=== PATIENT | female | born 1935 | race Caucasian/White ===

== ENCOUNTER 2016-07-29 16:55 | Emergency (ER) | payer MEDICARE ==
[2016-07-29] MEDS ORDERED: SODIUM CHLORIDE 0.9% 500 ML IV STA ×3 (16:57→19:31)
[2016-07-29] MEDS ORDERED: LORazepam 2 MG/ML SYRINGE IV STA ×2 (16:57→19:07)
[2016-07-29] MEDS ORDERED: SODIUM CHLORIDE 0.9% 1,000 ML IV STA (16:57)
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
[2016-07-29 17:23] VITALS: RESP 18
[2016-07-29 17:33] LABS: Basophils % (A) 0 %; CH 32.5; CHCM 36.8; Eosinophils # (A) 0.1 k/uL (0-0.7); Eosinophils % (A) 1 %; HCT 41.6 % (34.0-46.0); HDW 3.04; HGB 14.9 gm/dL (11.4-16.0); Luc # (Auto) 0.13; Luc % (Auto) 1; Lymphocytes # (A) 2.1 k/uL (1.0-4.8); Lymphocytes % (A) 24 %; MCH 31.7 pg (25.0-35.0); MCHC 35.7 g/dL (31.0-37.0); MCV 88.7 fL (80.0-100.0); Mean Platelet Volume 6.9; Monocytes # (A) 0.4 k/uL (0-1.0); Monocytes % (A) 4 %; Neutrophils # (A) 6.2 k/uL (1.3-7.7); Neutrophils % (A) 70 %; RBC 4.68 m/uL (3.80-5.40); RDW 13.3 % (11.5-15.5); WBC 8.9 k/uL (3.8-10.6); WBC (Perox) 8.75
[2016-07-29 17:48] LABS: INR 1.1 (<1.1); Partial Thromboplastin Time 27.5 sec (22.0-30.0); Prothrombin Time 10.9 sec (9.0-12.0)
[2016-07-29 17:49] LABS: ALT 53 U/L (9-52); AST 59 U/L (14-36); Alkaline Phosphatase 106 U/L (38-126); Anion Gap 13 mmol/L; Blood Urea Nitrogen 16 mg/dL (7-17); Calcium 9.5 mg/dL (8.4-10.2); Carbon Dioxide 23 mmol/L (22-30); Chloride 101 mmol/L (98-107); Glucose 188 mg/dL (74-99); Magnesium 1.8 mg/dL (1.6-2.3); Non-African American GFR(MDRD) >60 (>60 ml/min/1.73 sqM); Potassium 3.1 mmol/L (3.5-5.1); Sodium 137 mmol/L (137-145); Total Bilirubin 0.7 mg/dL (0.2-1.3); Total Protein 7.7 g/dL (6.3-8.2)
--- NOTE | 2016-07-29 17:50 | XR ---
EXAMINATION TYPE: XR chest 2V DATE OF EXAM: 07/29/2016 COMPARISON: Prior chest x-ray February 2013 HISTORY: Difficulty breathing TECHNIQUE: Frontal and lateral views of the chest are obtained. FINDINGS: There is no focal air space opacity, pleural effusion, or pneumothorax seen. The cardiac silhouette size is within normal limits. Prominent lung volume may be indicative of COPD. There are overlying cardiac leads and the patient is rotated. Apical pleural thickening is present. The osseou s structures are intact. IMPRESSION: No acute cardiopulmonary process.
[2016-07-29 17:56] LABS: Creatine Kinase 850 U/L (30-135)
[2016-07-29 18:10] LABS: Troponin I <0.012 ng/mL (0.000-0.034)
[2016-07-29 18:14] LABS: Creatine Kinase MB 7.3 ng/mL (0.0-2.4)
[2016-07-29] MEDS ORDERED: POTASSIUM CHLORIDE ER 20 MEQ TAB.ER PO STA (19:03)
[2016-07-29] MEDS ORDERED: MAGNESIUM SULFATE-D5W PMX 1 GM in DEXTROSE/WATER 1 100ML.BAG IVPB ONE (19:15)
[2016-07-29] MEDS ORDERED: LOSARTAN 50 MG TAB PO STA (20:48)
[2016-07-29 21:17] VITALS: BP 181/93; PULSE 77; TEMP 98
== END 2016-07-29 21:17 | disposition home or self-care (01) ==
LOC: EC 16:55
DX: E86.0 Dehydration (principal); E87.6 Hypokalemia; F41.9 Anxiety disorder, unspecified; R06.00 Dyspnea, unspecified; F31.9 Bipolar disorder, unspecified; I10 Essential (primary) hypertension; E07.9 Disorder of thyroid, unspecified; Z79.82 Long term (current) use of aspirin; Z79.899 Other long term (current) drug therapy; Z88.5 Allergy status to narcotic agent; Z85.828 Personal history of other malignant neoplasm of skin
CPT/HCPCS: 36415; 93005; 85379; 83880; 80053; 82550; 82553; 83735; 84484; 85025; 85610; 85730; 71020; 99284; 96365; 96375; 96376; 96361 ×3; J2060; J3475

== ENCOUNTER 2017-05-08 16:26 | Inpatient (IN) | payer MEDICARE ==
[2017-05-08] MEDS ORDERED: ASPIRIN 81 MG PO STA (16:58)
[2017-05-08] MEDS ORDERED: NITROGLYCERIN OINT 1 INCH/GM PACKET TOPICAL STA (16:58)
[2017-05-08 17:09] LABS: Basophils % (A) 1 %; Eosinophils # (A) 0.3 k/uL (0-0.7); Eosinophils % (A) 4 %; HCT 40.3 % (34.0-46.0); HGB 14.1 gm/dL (11.4-16.0); Lymphocytes # (A) 2.4 k/uL (1.0-4.8); Lymphocytes % (A) 33 %; MCH 31.5 pg (25.0-35.0); MCHC 35.1 g/dL (31.0-37.0); MCV 89.9 fL (80.0-100.0); Mean Platelet Volume 7.2; Monocytes # (A) 0.4 k/uL (0-1.0); Monocytes % (A) 6 %; Neutrophils % (A) 56 %; Platelet Count 228 k/uL (150-450); RBC 4.48 m/uL (3.80-5.40); RDW 13.5 % (11.5-15.5); WBC 7.1 k/uL (3.8-10.6)
[2017-05-08 17:24] LABS: D-Dimer 1.37 mg/L FEU (<0.60); INR 1.1 (<1.2); Partial Thromboplastin Time 24.9 sec (22.0-30.0); Prothrombin Time 10.3 sec (9.0-12.0)
[2017-05-08 17:34] LABS: Creatine Kinase 39 U/L (30-135)
[2017-05-08 17:36] LABS: ALT 53 U/L (9-52); AST 36 U/L (14-36); Alkaline Phosphatase 88 U/L (38-126); Anion Gap 11 mmol/L; Blood Urea Nitrogen 25 mg/dL (7-17); Calcium 9.7 mg/dL (8.4-10.2); Carbon Dioxide 28 mmol/L (22-30); Chloride 101 mmol/L (98-107); Glucose 95 mg/dL (74-99); Potassium 3.9 mmol/L (3.5-5.1); Sodium 140 mmol/L (137-145); Total Bilirubin 0.4 mg/dL (0.2-1.3)
[2017-05-08 17:45] LABS: Creatine Kinase MB <0.2 ng/mL (0.0-2.4); Troponin I <0.012 ng/mL (0.000-0.034)
--- NOTE | 2017-05-08 17:46 | XR ---
EXAMINATION: XR chest 2V DATE AND TIME: 05/08/2017 5:20 PM ORDERING PROVIDER: Noah Antony DO CLINICAL INDICATION: Chest Pain with 3days of dyspnea TECHNIQUE: PA and lateral COMPARISON: 01/29/2017 DESCRIPTION: The lungs are clear. The pleural spaces are negative. The cardiac silhouette is not enlarged. The skeletal structures are intact without focal findings. The soft tissues are unremarkable. IMPRESSION: NO ACUTE PROCESS.
[2017-05-08] MEDS ORDERED: RX INFO: IV CONTRAST WAS GIVEN 1 EACH MISC MISCELLANE PRN (19:01)
[2017-05-08] MEDS ORDERED: hydrALAZINE HCL 20 MG/ML 1 ML VIAL IVP STA (19:05)
--- NOTE | 2017-05-08 19:05 | ED ---
Chest Pain HPI - General Chief Complaint: Chest Pain Stated Complaint: Chest Pain Time Seen by Provider: 05/08/17 16:51 Source: patient, family Mode of arrival: wheelchair Limitations: no limitations - History of Present Illness Initial Comments: This 81-year-old white female presents with a complaint of some chest pain and shortness of breath. She states that this is been intermittent over the past 5 days. She states that it is a pressure in the midsternal region of her chest without any radiation. She denies any previous similar symptoms. She apparently saw her doctor today and they did an EKG which showed some abnormalities and she was sent to the ER for further evaluation. She denies any leg pain or swelling. She does relate a pleuritic component to the chest pain. She denies any history of DVT or PE. No fevers or chills or cough. No other complaints or modifying factors. - Related Data Home Medications Medication Instructions Recorded Confirmed Aspirin EC [Ecotrin Low Dose] 81 mg PO HS 07/29/16 05/08/17 Atorvastatin Calcium [Lipitor] 40 mg PO HS 07/29/16 05/08/17 Levothyroxine Sodium [Synthroid] 50 mcg PO DAILY 07/29/16 05/08/17 Multivitamins, Thera [Multivitamin 1 tab PO HS 07/29/16 05/08/17 (formulary)] lamoTRIgine [LaMICtal] 100 mg PO HS 07/29/16 05/08/17 Escitalopram [Lexapro] 20 mg PO DAILY 01/05/17 05/08/17 Hydrochlorothiazide [Hydrodiuril] 25 mg PO DAILY 01/05/17 05/08/17 LORazepam [Ativan] 0.5 mg PO BID 01/05/17 05/08/17 Cholecalciferol [Vitamin D3] 1,000 unit PO HS 05/08/17 05/08/17 Fish Oil/Dha/Epa [Fish Oil 1,200 1 cap PO DAILY 05/08/17 05/08/17 mg Fish Oil] Potassium Chloride ER [K-Dur 20] 20 meq PO HS 05/08/17 05/08/17 Previous Rx's Medication Instructions Recorded Metoprolol Succinate (ER) [Toprol 50 mg PO DAILY #30 tab 07/29/16 XL] Allergies Allergy/AdvReac Type Severity Reaction Status Date / Time codeine AdvReac Nausea & Verified 05/08/17 17:05 Vomiting Review of Systems ROS Statement: Those systems with pertinent positive or pertinent negative responses have been documented in the HPI. ROS Other: All systems not noted in ROS Statement are negative. 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 History of Any Multi-Drug Resistant Organisms: None Reported Past Surgical History: Appendectomy, Bladder Surgery, Cholecystectomy, Hysterectomy, Joint Replacement, Orthopedic Surgery Additional Past Surgical History / Comment(s): bilateral hip replacements, cataract removal bilaterally, bladder suspension surgery with mesh, pelvic fx surgically repaired. Additional Past Anesthesia/Blood Transfusion Reaction / Comment(s): Pt states she had N/V following spinal anesthesia because her head was lifted up too soon. Pt has not recieved a blood transfusion. Past Psychological History: Anxiety, Bipolar Smoking Status: Never smoker Past Alcohol Use History: None Reported Past Drug Use History: None Reported - Past Family History Father Family Medical History: Myocardial Infarction ([place]) Mother Family Medical History: CVA/TIA, Hypertension Additional Family Medical History / Comment(s): Mother of a CVA General Exam - General Exam Comments Initial Comments: GENERAL: The patient is well nourished and well hydrated. VITAL SIGNS: Heart rate, blood pressure, respiratory rate reviewed as recorded in nurse's notes. EYES: Pupils are round and reactive. Extraocular movements are intact. No conjunctival / lid redness or swelling. ENT: No external evidence of injury, swelling, or ecchymosis. Airway is patent. Throat is clear. NECK: Nontender. No swelling or evidence of injury. No subcutaneous emphysema. Trachea is midline. No thyroid mass. HEART: Regular rate and rhythm. Good peripheral pulses. LUNGS/CHEST: Breath sounds clear and equal bilaterally. No rales, rhonchi, or wheezes. No ecchymosis, subcutaneous emphysema, or tenderness. ABDOMEN: Abdomen soft without tenderness. No palpable masses or organomegaly. No peritoneal signs. No abdominal wall swelling or ecchymosis. EXTREMITIES: No extremity tenderness. Normal muscle tone and function. No thoracolumbar tenderness. NEUROLOGIC: Sensation is grossly intact. Cranial nerve exam reveals face is symmetrical, tongue is midline, speech is clear. SKIN: No abrasions or ecchymosis is noted. No induration or masses noted. PSYCHIATRIC: Alert and oriented. Appropriate behavior and judgment. Limitations: no limitations Course Vital Signs 05/08/17 05/08/17 05/08/17 16:30 17:36 17:38 Temperature 97.8 F Pulse Rate 56 L 54 L Pulse Rate [ 65 Supine Apical] Respiratory 20 18 Rate Blood Pressure 156/73 159/78 O2 Sat by Pulse 99 99 Oximetry 05/08/17 05/08/17 18:14 19:06 Temperature Pulse Rate 55 L 55 L Pulse Rate [ Supine Apical] Respiratory 19 18 Rate Blood Pressure 191/84 130/71 O2 Sat by Pulse 98 98 Oximetry Chest Pain MDM - [facility] The patient was seen and examined. All diagnostics were reviewed. The EKG shows a sinus bradycardia at a rate of 56. There is no ST elevation but there is some T-wave abnormalities in the lateral leads. The MA intervals 182, QRS duration is 84, and the QTC intervals 426. He sees an aspirin as well as Nitropaste. The laboratory came back showing an elevation of the d-dimer but the other labs are all essentially within normal limits. The chest x-ray does not show any abnormalities. A CT angiogram of the chest is ordered. The case is discussed with the radiologist and they do note a small right lower lobe pulmonary embolism. The patient is started on heparin. It is felt as though she would require admission to the hospital for further treatment of this condition. The case is discussed with Dr. Musa and he is agreeable with admission. He would like Dr. Mullins from pulmonology to consult. The patient is agreeable to admission as well. Disposition Clinical Impression: Hypertension, Elevated d-dimer, Chest pain, SOB (shortness of breath), Bradycardia, Pulmonary embolism Disposition: ADMITTED IP TO THIS [facility] Condition: Fair Referrals: Lydia Schwartz MD [Primary Care Provider] - 1-2 days Time of Disposition: 19:05 Decision Date: 05/08/17 Decision Time: 19:05
[2017-05-08] MEDS ORDERED: HEPARIN SODIUM,PORCINE 5,000 UNIT/ML 1 ML VIAL IV PRN (20:45)
--- NOTE | 2017-05-08 20:49 | CT ---
EXAMINATION TYPE: CT angio chest with contrast, with 3-D reconstruction renderings. DATE OF EXAM: 05/08/2017 7:48 PM COMPARISON: 06/26/2011 HISTORY: Chest pain CT DLP: 299 mGycm Automated exposure control for dose reduction was used. CONTRAST: CTA scan of the thorax is performed with IV Contrast, patient injected with 65 mL of Omnipa que 350, pulmonary embolism protocol. Multiple 3-D reconstruction renderings were obtained.. FINDINGS: LUNGS: The lungs are grossly clear and well expanded. Apical pleural-parenchymal changes are noted bi laterally. There is no pleural effusion or pneumothorax seen. The tracheobronchial tree is patent. MEDIASTINUM: There is satisfactory enhancement of the pulmonary artery and its branches, with an intr aluminal filling defect involving the right lower lobe medial basal segment, consistent with acute pu lmonary embolism. The remainder of the pulmonary arterial tree is well-opacified and is negative. There are no greater than 1 cm hilar or mediastinal lymph nodes. No cardiomegaly. Chronic calcificati ons noted. No pericardial effusion is seen. No acute thoracic aorta findings. OTHER: No additional significant abnormality is seen. IMPRESSION: 1. POSITIVE FOR SEGMENTAL BRANCH PULMONARY EMBOLISM INVOLVING RIGHT LOWER LOBE MEDIAL BASAL BRANCH. Results communicated with the ordering physician at 8:42 PM, in order to ensure intact communications . 2. CORONARY CALCIFICATIONS NOTED.
[2017-05-08] MEDS: HEPARIN SODIUM,PORCINE 5,000 UNIT/ML 1 ML VIAL IV ONE ×2 (21:28→21:51)
[2017-05-08] MEDS ORDERED: HEPARIN SODIUM,PORCINE 5,000 UNIT/ML 1 ML VIAL IV ONE (21:45)
[2017-05-08] MEDS: HEPARIN SOD,PORK IN 0.45% NACL 25,000 UNIT in 0.45% NACL 1 500ML.BAG IV SCH (21:53)
[2017-05-08] MEDS ORDERED: ONDANSETRON 4 MG/2 ML VIAL IVP PRN (22:40)
[2017-05-08] MEDS ORDERED: NALOXONE 0.4 MG/ML 1 ML VIAL IV PRN (22:40)
[2017-05-08] MEDS ORDERED: ACETAMINOPHEN TAB 325 MG TAB PO PRN (22:40)
[2017-05-08] MEDS ORDERED: POTASSIUM CHLORIDE ER 20 MEQ TAB.ER PO STA (23:55)
[2017-05-08] MEDS ORDERED: ATORVASTATIN 40 MG TAB PO STA (23:58)
[2017-05-08] MEDS ORDERED: lamoTRIgine 100 MG TAB PO STA (23:58)
[2017-05-09 02:57] LABS: Basophils % (A) 1 %; Eosinophils # (A) 0.3 k/uL (0-0.7); Eosinophils % (A) 3 %; HCT 35.7 % (34.0-46.0); HGB 12.1 gm/dL (11.4-16.0); Lymphocytes # (A) 3.2 k/uL (1.0-4.8); Lymphocytes % (A) 39 %; MCH 30.8 pg (25.0-35.0); MCV 90.6 fL (80.0-100.0); Mean Platelet Volume 7.4; Monocytes # (A) 0.4 k/uL (0-1.0); Monocytes % (A) 5 %; Neutrophils # (A) 4.2 k/uL (1.3-7.7); Neutrophils % (A) 51 %; Platelet Count 188 k/uL (150-450); RBC 3.94 m/uL (3.80-5.40); RDW 13.7 % (11.5-15.5); WBC 8.3 k/uL (3.8-10.6)
[2017-05-09 03:21] LABS: INR 1.2 (<1.2); Prothrombin Time 11.2 sec (9.0-12.0)
[2017-05-09 03:27] LABS: Partial Thromboplastin Time >200.0 sec (22.0-30.0)
[2017-05-09] MEDS: HYDROCHLOROTHIAZIDE 25 MG TAB PO SCH (08:35)
[2017-05-09] MEDS: METOPROLOL SUCCINATE (ER) 50 MG TAB.ER.24H PO SCH (08:35)
[2017-05-09] MEDS: ESCITALOPRAM 20 MG TAB PO SCH (08:35)
[2017-05-09] MEDS: LEVOTHYROXINE 50 MCG TAB PO SCH (08:36)
[2017-05-09] MEDS ORDERED: LORazepam 0.5 MG TAB PO SCH (09:00)
[2017-05-09] MEDS ORDERED: NON-FORMULARY DRUG (Fish Oil/Dha/Epa [Fish Oil 1,200 Mg Fish Oil] 1 CAP) PO SCH (09:00)
[2017-05-09] MEDS ORDERED: PANTOPRAZOLE 40 MG/10 ML VIAL IV SCH (09:00)
[2017-05-09] MEDS: LORazepam 1 MG TAB PO SCH ×2 (10:29→20:33)
--- NOTE | 2017-05-09 11:56 | P.HPIM ---
History of Present Illness H&P Date: 05/09/17 Chief Complaint: Shortness of breath Denise Chopra is an 81-year-old female patient of Dr. Schwartz who presented to [facility] emergency room with a chief complaint of shortness of breath, patient is stating that her shortness of breath started 3-4 weeks ago and has been increasing, she was evaluated in the emergency room, d-dimer was elevated at 1.37, computed tomography scan angiogram of the chest was positive for segmental branch pulmonary embolism involving the right lower lobe medial basal branch, she was started on IV heparin in the emergency room and was admitted to telemetry floor for further evaluation and treatment. Patient denies any recent travel, denies any recent hip or knee surgery, denies any recent cast or brace to the lower extremities, however she states that she has been staying in bed for prolonged times due to depression. Patient states that she never smoked. 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 History of Any Multi-Drug Resistant Organisms: None Reported Past Surgical History: Appendectomy, Bladder Surgery, Cholecystectomy, Hysterectomy, Joint Replacement, Orthopedic Surgery Additional Past Surgical History / Comment(s): bilateral hip replacements, cataract removal bilaterally with lens implants, bladder suspension surgery with mesh-states she is having difficulty with mesh, pelvic fx surgically repaired. Additional Past Anesthesia/Blood Transfusion Reaction / Comment(s): Pt states she had N/V following spinal anesthesia because her head was lifted up too soon. Pt has not recieved a blood transfusion. Smoking Status: Never smoker - Past Family History Father Family Medical History: Myocardial Infarction ([place]) Mother Family Medical History: CVA/TIA, Hypertension Additional Family Medical History / Comment(s): Mother of a CVA Medications and Allergies Home Medications Medication Instructions Recorded Confirmed Type Aspirin EC [Ecotrin Low Dose] 81 mg PO HS 07/29/16 05/08/17 History Atorvastatin Calcium [Lipitor] 40 mg PO HS 07/29/16 05/08/17 History Levothyroxine Sodium [Synthroid] 50 mcg PO DAILY 07/29/16 05/08/17 History Metoprolol Succinate (ER) [Toprol 50 mg PO DAILY #30 tab 07/29/16 05/08/17 Rx XL] Multivitamins, Thera [Multivitamin 1 tab PO HS 07/29/16 05/08/17 History (formulary)] lamoTRIgine [LaMICtal] 100 mg PO HS 07/29/16 05/08/17 History Escitalopram [Lexapro] 20 mg PO DAILY 01/05/17 05/08/17 History Hydrochlorothiazide [Hydrodiuril] 25 mg PO DAILY 01/05/17 05/08/17 History LORazepam [Ativan] 0.5 mg PO BID 01/05/17 05/08/17 History Cholecalciferol [Vitamin D3] 1,000 unit PO HS 05/08/17 05/08/17 History Fish Oil/Dha/Epa [Fish Oil 1,200 1 cap PO DAILY 05/08/17 05/08/17 History mg Fish Oil] Potassium Chloride ER [K-Dur 20] 20 meq PO HS 05/08/17 05/08/17 History Allergies Allergy/AdvReac Type Severity Reaction Status Date / Time codeine AdvReac Nausea & Verified 05/08/17 17:05 Vomiting Physical Exam Vitals: Vital Signs Temp Pulse Pulse Pulse Resp BP BP 05/09/17 09:56 96.9 F L 50 L 18 130/58 05/09/17 06:28 51 L 18 116/61 05/09/17 03:00 51 L 18 129/68 05/09/17 01:04 53 L 18 139/65 05/08/17 23:05 50 L 18 107/62 05/08/17 22:34 56 L 18 124/65 05/08/17 21:51 05/08/17 21:43 56 L 18 123/65 05/08/17 19:06 55 L 18 130/71 05/08/17 18:14 55 L 19 191/84 05/08/17 17:38 54 L 18 159/78 05/08/17 17:36 65 05/08/17 16:30 97.8 F 56 L 20 156/73 Pulse Ox 05/09/17 09:56 97 05/09/17 06:28 96 05/09/17 03:00 96 05/09/17 01:04 96 05/08/17 23:05 96 05/08/17 22:34 96 05/08/17 21:51 96 05/08/17 21:43 05/08/17 19:06 98 05/08/17 18:14 98 05/08/17 17:38 99 05/08/17 17:36 05/08/17 16:30 99 Intake and Output 05/08/17 05/09/17 05/09/17 22:59 06:59 14:59 Intake Total 252.493 Balance 252.493 Intake: Intake, IV Titration 252.493 Amount Heparin Sod,Pork in 0.45% 252.493 NaCl 25,000 unit In 0.45 % NaCl 1 500ml.bag @ 18 UNITS/KG/HR 26.12 mls/hr IV .Q19H9M [facility] Rx#: [id number] Other: Voiding Method Bedside Commode Weight 72.575 kg In general patient is alert and oriented 3 in no apparent distress HEENT head normocephalic and atraumatic Neck is supple no JVD no goiter no lymphadenopathy Chest exam reveals a few scattered crackles no wheezing Cardiac exam reveals regular heart sounds S1 and S2 no gallops no murmurs Abdomen is soft nontender no organomegaly was normal bowel sounds Extremity exam reveals no edema no cyanosis or clubbing Results CBC & Chem 7: 05/09/17 02:32 05/08/17 16:53 Labs: Abnormal Lab Results - Last 24 Hours (Table) 05/08/17 05/08/17 05/09/17 Range/Units 16:53 16:53 02:32 INR 1.2 H (<1.2) APTT >200.0 H* (22.0-30.0) sec D-Dimer 1.37 H (<0.60) mg/L FEU BUN 25 H (7-17) mg/dL ALT 53 H (9-52) U/L 05/09/17 05/09/17 Range/Units 03:46 06:09 INR (<1.2) APTT >200.0 H* 56.1 H (22.0-30.0) sec D-Dimer (<0.60) mg/L FEU BUN (7-17) mg/dL ALT (9-52) U/L Thrombosis Risk Factor Assmnt - Choose All That Apply Any of the Below Risk Factors Present?: Yes Other Risk Factors: Yes Each Risk Factor Represents 2 Points: Malignancy Each Risk Factor Represents 3 Points: Age 75 years or older, History of DVT/PE Other congenital or acquired thrombophilia - If yes, enter type in comment: No Thrombosis Risk Factor Assessment Total Risk Factor Score: 8 Thrombosis Risk Factor Assessment Level: High Risk Assessment and Plan Plan: #1 segmental branch pulmonary embolism patient is maintained on IV heparin Lower extremity Doppler was ordered, pulmonary consultation requested #2 previous history of stroke in 2009 #3 previous history of subdural hematoma #4 bilateral hip replacement surgery more than 5 years ago #5 depression #6 underlying history of hypothyroidism Will check TSH Will follow during this admission, continue IV heparin at this time, possible transition to oral anticoagulation was possible discharge in the next 1-2 days
--- NOTE | 2017-05-09 12:22 | P.CNPUL ---
<Rocio Campos - Last Filed: 05/09/17 12:04> History of Present Illness Consult date: 05/09/17 Requesting physician: Jewels Musa Reason for consult: dyspnea, abnormal CXR/CT Chief complaint: Shortness of breath History of present illness: This is a very pleasant 81-year-old female patient who follows with Dr. Schwartz as her primary care physician. 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 She is a lifelong nonsmoker. No COPD, no asthma. No pulmonary issues in the past. No inhalers. Not on home oxygen. She states she had been quite depressed over the past month or so and had been spending quite a bit of time in bed. She is usually ambulatory with a cane. Been having ongoing issues with shortness of breath over the past several weeks. It had been worse prior to her arrival here to the emergency room yesterday afternoon. She was initially seen at her PCPs office. An EKG was done for some concerns regarding abnormalities and she was sent to the emergency room for the same. She had some midsternal chest discomfort. No radiation. No aggravating or relieving factors. Troponins were negative. A d-dimer 1.37. Chest x-ray showed no acute cardiopulmonary process. CT angiogram did reveal a segmental branch pulmonary embolism in the right lower lobe medial basal branch. Was initiated on heparin and admitted for the same. She is seen today in consultation on the selective care unit. She denies any recent travel, surgery or injury. No prior history of blood clots. No family history of blood clots. She is awake and alert in no acute distress. She currently denies any chest discomfort. No shortness of breath, cough or congestion. No hemoptysis. He is maintaining good O2 saturations in the upper 90s on room air. She's been afebrile. Hemodynamically stable. Review of Systems Constitutional: Reports fatigue, Reports weakness Eyes: denies blurred vision, denies decreased vision Ears: deny: decreased hearing Ears, nose, mouth and throat: Denies headache, Denies sore throat Cardiovascular: Reports chest pain, Reports dyspnea on exertion, Reports shortness of breath Respiratory: Reports dyspnea, Reports pain on inspiration Gastrointestinal: Denies abdominal pain, Denies diarrhea, Denies nausea, Denies vomiting Genitourinary: Denies dysuria, Denies hematuria Musculoskeletal: Reports low back pain, Reports morning stiffness, Reports myalgias Musculoskeletal: bilateral: hip pain Integumentary: Denies pruritus, Denies rash Neurological: Denies numbness, Denies weakness Psychiatric: Reports depression Past Medical History Past Medical History: Cancer, CVA/TIA, Hyperlipidemia, Hypertension, Osteoarthritis (OA), Syncope, Thyroid Disorder Additional Past Medical History / Comment(s): Pt states she was recently on antibiotics for "sores in my mouth.", 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 History of Any Multi-Drug Resistant Organisms: None Reported Past Surgical History: Appendectomy, Bladder Surgery, Cholecystectomy, Hysterectomy, Joint Replacement, Orthopedic Surgery Additional Past Surgical History / Comment(s): bilateral hip replacements, cataract removal bilaterally with lens implants, bladder suspension surgery with mesh-states she is having difficulty with mesh, pelvic fx surgically repaired. Additional Past Anesthesia/Blood Transfusion Reaction / Comment(s): Pt states she had N/V following spinal anesthesia because her head was lifted up too soon. Pt has not recieved a blood transfusion. Smoking Status: Never smoker - Past Family History Father Family Medical History: Myocardial Infarction ([place]) Mother Family Medical History: CVA/TIA, Hypertension Additional Family Medical History / Comment(s): Mother of a CVA Medications and Allergies Home Medications Medication Instructions Recorded Confirmed Type Aspirin EC [Ecotrin Low Dose] 81 mg PO HS 07/29/16 05/08/17 History Atorvastatin Calcium [Lipitor] 40 mg PO HS 07/29/16 05/08/17 History Levothyroxine Sodium [Synthroid] 50 mcg PO DAILY 07/29/16 05/08/17 History Metoprolol Succinate (ER) [Toprol 50 mg PO DAILY #30 tab 07/29/16 05/08/17 Rx XL] Multivitamins, Thera [Multivitamin 1 tab PO HS 07/29/16 05/08/17 History (formulary)] lamoTRIgine [LaMICtal] 100 mg PO HS 07/29/16 05/08/17 History Escitalopram [Lexapro] 20 mg PO DAILY 01/05/17 05/08/17 History Hydrochlorothiazide [Hydrodiuril] 25 mg PO DAILY 01/05/17 05/08/17 History LORazepam [Ativan] 0.5 mg PO BID 01/05/17 05/08/17 History Cholecalciferol [Vitamin D3] 1,000 unit PO HS 05/08/17 05/08/17 History Fish Oil/Dha/Epa [Fish Oil 1,200 1 cap PO DAILY 05/08/17 05/08/17 History mg Fish Oil] Potassium Chloride ER [K-Dur 20] 20 meq PO HS 05/08/17 05/08/17 History Allergies Allergy/AdvReac Type Severity Reaction Status Date / Time codeine AdvReac Nausea & Verified 05/08/17 17:05 Vomiting Physical Exam Vitals: Vital Signs Temp Pulse Pulse Pulse Resp BP BP 05/09/17 09:56 96.9 F L 50 L 18 130/58 05/09/17 06:28 51 L 18 116/61 05/09/17 03:00 51 L 18 129/68 05/09/17 01:04 53 L 18 139/65 05/08/17 23:05 50 L 18 107/62 05/08/17 22:34 56 L 18 124/65 05/08/17 21:51 05/08/17 21:43 56 L 18 123/65 05/08/17 19:06 55 L 18 130/71 05/08/17 18:14 55 L 19 191/84 05/08/17 17:38 54 L 18 159/78 05/08/17 17:36 65 05/08/17 16:30 97.8 F 56 L 20 156/73 Pulse Ox 05/09/17 09:56 97 05/09/17 06:28 96 05/09/17 03:00 96 05/09/17 01:04 96 05/08/17 23:05 96 05/08/17 22:34 96 05/08/17 21:51 96 05/08/17 21:43 05/08/17 19:06 98 05/08/17 18:14 98 05/08/17 17:38 99 05/08/17 17:36 05/08/17 16:30 99 Intake and Output 05/08/17 05/09/17 05/09/17 22:59 06:59 14:59 Intake Total 252.493 Balance 252.493 Intake: Intake, IV Titration 252.493 Amount Heparin Sod,Pork in 0.45% 252.493 NaCl 25,000 unit In 0.45 % NaCl 1 500ml.bag @ 18 UNITS/KG/HR 26.12 mls/hr IV .Q19H9M [facility] Rx#: [id number] Other: Voiding Method Bedside Commode Weight 72.575 kg GENERAL EXAM: Alert, comfortable in no apparent distress. HEAD: Normocephalic. EYES: Normal reaction of pupils, equal size. NOSE: Clear with pink turbinates. THROAT: No erythema or exudates. NECK: No masses, no JVD. CHEST: No chest wall deformity. LUNGS: Equal air entry with no crackles, wheeze, rhonchi or dullness. CVS: S1 and S2 normal with no audible murmur, regular rhythm. ABDOMEN: No hepatosplenomegaly, normal bowel sounds, no guarding or rigidity. SPINE: No scoliosis or deformity SKIN: No rashes CENTRAL NERVOUS SYSTEM: Right leg weakness secondary to previous CVA.. EXTREMITIES: There is no peripheral edema. No clubbing, no cyanosis. Peripheral pulses are intact. Results - Laboratory Findings CBC and BMP: 05/09/17 02:32 05/08/17 16:53 PT/INR, D-dimer PT 11.2 sec (9.0-12.0) 05/09/17 02:32 INR 1.2 (<1.2) H 05/09/17 02:32 D-Dimer 1.37 mg/L FEU (<0.60) H 05/08/17 16:53 Abnormal lab findings: Abnormal Labs 05/08/17 05/08/17 05/09/17 16:53 16:53 02:32 INR 1.2 H APTT >200.0 H* D-Dimer 1.37 H BUN 25 H ALT 53 H 05/09/17 05/09/17 03:46 06:09 INR APTT >200.0 H* 56.1 H D-Dimer BUN ALT - Diagnostic Findings Chest x-ray: image reviewed CT scan - chest: image reviewed Assessment and Plan Assessment: Impression: #1 Chest pain and shortness of breath secondary to a segmental branch pulmonary embolism involving the right lower lobe medial basal branch. Elma to be secondary to sedentary lifestyle over the past several weeks. #2 History of depression causing a recent sedentary lifestyle. #3 Previous history of CVA/TIA with right leg weakness from previous subdural hematoma in 2009. #4 Hyperlipidemia. #5 Hypertension. #6 Osteoarthritis with previous bilateral hip replacements and chronic hip and pelvic pain. #7 Hypothyroidism. Plan: The patient was seen and evaluated by Dr. Mullins. Her chest x-ray, CAT scan and labs were all reviewed. There is a small segmental branch right lower lobe pulmonary emboli. We will obtain a Doppler of the lower extremities. The patient is currently on a heparin drip for now. She would benefit from a an oral agent for approximately 3-6 months. She remains hemodynamically stable. She is anxious to go home and could possibly be discharged in the next 24 hours. We will continue to follow and make further recommendations based on her clinical status. I, the cosigning physician, performed a history & physical examination of the patient. Lungs sounds are clear. Maintaining good O2 saturations in the 90s on room air. I discussed the assessment and plan of care with my nurse practitioner, Rocio Campos. I attest to the above note as dictated by her. Time with Patient: Greater than 30 <Rosabla Mullins - Last Filed: 05/09/17 16:49> Physical Exam Vitals: Vital Signs Temp Pulse Pulse Pulse Resp BP BP 05/09/17 11:30 96.9 F L 55 L 18 123/67 05/09/17 09:56 96.9 F L 50 L 18 130/58 05/09/17 06:28 51 L 18 116/61 05/09/17 03:00 51 L 18 129/68 05/09/17 01:04 53 L 18 139/65 05/08/17 23:05 50 L 18 107/62 05/08/17 22:34 56 L 18 124/65 05/08/17 21:51 05/08/17 21:43 56 L 18 123/65 05/08/17 19:06 55 L 18 130/71 05/08/17 18:14 55 L 19 191/84 05/08/17 17:38 54 L 18 159/78 05/08/17 17:36 65 Pulse Ox 05/09/17 11:30 96 05/09/17 09:56 97 03/07/18 06:28 96 05/09/17 03:00 96 05/09/17 01:04 96 05/08/17 23:05 96 05/08/17 22:34 96 05/08/17 21:51 96 05/08/17 21:43 05/08/17 19:06 98 05/08/17 18:14 98 05/08/17 17:38 99 05/08/17 17:36 Intake and Output 05/09/17 05/09/17 05/09/17 06:59 14:59 22:59 Intake Total 432.493 Balance 432.493 Intake: Intake, IV Titration 252.493 Amount Heparin Sod,Pork in 0.45% 252.493 NaCl 25,000 unit In 0.45 % NaCl 1 500ml.bag @ 18 UNITS/KG/HR 26.12 mls/hr IV .Q19H9M [facility] Rx#: [id number] Oral 180 Other: Voiding Method Bedside Commode Weight 72.575 kg Patient Weight 05/10/17 06:59 Weight 72.575 kg Results - Laboratory Findings CBC and BMP: 05/09/17 02:32 05/08/17 16:53 PT/INR, D-dimer PT 11.2 sec (9.0-12.0) 05/09/17 02:32 INR 1.2 (<1.2) H 05/09/17 02:32 D-Dimer 1.37 mg/L FEU (<0.60) H 05/08/17 16:53 Abnormal lab findings: Abnormal Labs 05/08/17 05/08/17 05/09/17 16:53 16:53 02:32 INR 1.2 H APTT >200.0 H* D-Dimer 1.37 H BUN 25 H ALT 53 H 05/09/17 05/09/17 05/09/17 03:46 06:09 13:27 INR APTT >200.0 H* 56.1 H 67.2 H D-Dimer BUN ALT Assessment and Plan Assessment: This is a joint evaluation that was done along with a nurse practitioner. This patient has this subsegmental pulmonary embolism which is very tiny and small. She'll be committed to 6 months of articulation with an oral agent, probably Eliquis and we are awaiting the final insurance clearance. Doppler of the lower extremity has been negative. Hemodynamically stable. Still on IV heparin. Discharge home probably within next 24 hours.
[2017-05-09 14:26] VITALS: BMI 25.8
--- NOTE | 2017-05-09 15:54 | US ---
EXAMINATION TYPE: US venous doppler duplex LE DATE OF EXAM: 05/09/2017 11:37 AM COMPARISON: NONE CLINICAL HISTORY: Pulmonary Embolism. SIDE PERFORMED: Bilateral TECHNIQUE: The lower extremity deep venous system is examined utilizing real time linear array sonog prudencio with graded compression, doppler sonography and color-flow sonography. VESSELS IMAGED: External Iliac Vein (EIV) Common Femoral Vein Deep Femoral Vein Greater Saphenous Vein * Femoral Vein Popliteal Vein Small Saphenous Vein * Proximal Calf Veins (* superficial vessels) Right Leg: Appears negative for DVT Left Leg: Appears negative for DVT IMPRESSION: 1. No deep venous thrombosis within the lower extremities at the time of this exam.
[2017-05-09] MEDS ORDERED: POTASSIUM CHLORIDE ER 20 MEQ TAB.ER PO SCH (21:00)
[2017-05-09] MEDS ORDERED: MULTIVITAMINS, THERA 1 EACH TAB PO SCH (21:00)
[2017-05-09] MEDS ORDERED: ATORVASTATIN 40 MG TAB PO SCH (21:00)
[2017-05-09] MEDS ORDERED: lamoTRIgine 100 MG TAB PO SCH (21:00)
[2017-05-09] MEDS ORDERED: ASPIRIN 81 MG PO SCH (21:00)
[2017-05-09] MEDS ORDERED: CHOLECALCIFEROL 1,000 UNIT TAB PO SCH (21:00)
[2017-05-10] MEDS: HEPARIN SOD,PORK IN 0.45% NACL 25,000 UNIT in 0.45% NACL 1 500ML.BAG IV SCH ×2 (03:55→05:42)
[2017-05-10] MEDS: LEVOTHYROXINE 50 MCG TAB PO SCH (05:46)
[2017-05-10 06:55] LABS: Basophils % (A) 1 %; Eosinophils # (A) 0.2 k/uL (0-0.7); Eosinophils % (A) 4 %; HCT 35.4 % (34.0-46.0); HGB 12.7 gm/dL (11.4-16.0); Lymphocytes # (A) 2.6 k/uL (1.0-4.8); Lymphocytes % (A) 43 %; MCH 31.7 pg (25.0-35.0); MCHC 35.9 g/dL (31.0-37.0); MCV 88.3 fL (80.0-100.0); Mean Platelet Volume 7.3; Monocytes # (A) 0.3 k/uL (0-1.0); Monocytes % (A) 5 %; Neutrophils # (A) 2.8 k/uL (1.3-7.7); Neutrophils % (A) 47 %; Platelet Count 185 k/uL (150-450); RBC 4.01 m/uL (3.80-5.40); RDW 13.5 % (11.5-15.5)
[2017-05-10 07:13] LABS: INR 1.1 (<1.2); Prothrombin Time 10.9 sec (9.0-12.0)
[2017-05-10 07:20] LABS: Partial Thromboplastin Time >200.0 sec (22.0-30.0)
[2017-05-10] MEDS ORDERED: PANTOPRAZOLE 40 MG TABLET PO SCH (07:30)
[2017-05-10] MEDS: LORazepam 1 MG TAB PO SCH (08:22)
[2017-05-10] MEDS: METOPROLOL SUCCINATE (ER) 50 MG TAB.ER.24H PO SCH (08:23)
[2017-05-10] MEDS: ESCITALOPRAM 20 MG TAB PO SCH (08:23)
[2017-05-10] MEDS: HYDROCHLOROTHIAZIDE 25 MG TAB PO SCH (08:23)
[2017-05-10 10:00] VITALS: RESP 16
[2017-05-10 13:15] VITALS: BP 174/75; PULSE 55; TEMP 97.1
[2017-05-10] MEDS ORDERED: APIXABAN 5 MG TAB PO SCH (13:45)
--- NOTE | 2017-05-10 13:50 | P.DS ---
Providers Date of admission: 05/08/17 22:45 Expected date of discharge: 05/10/17 Attending physician: Jewels Musa Consults: 05/08/17 22:46 Consult Physician Routine Consulting Provider: Rosalba Mullins Consult Reason/Comments: pe Do you want consulting provider notified?: Yes Primary care physician: Lydia Schwartz Hospital Course: Discharge diagnosis #1 segmental branch pulmonary embolism: Doppler was negative for DVT. Patient started on IV heparin on admission. She'll be switched over to Eliquis 10 mg twice a day for 7 days and then 5 mg twice a day. She was evaluated by pulmonary service. They're recommending a total of 3-6 months of treatment for her PE #2 previous history of stroke in 2009 #3 previous history of subdural hematoma #4 bilateral hip replacement surgery more than 5 years ago #5 depression #6 underlying history of hypothyroidism Hospital course Denise Chopra is an 81-year-old female patient of Dr. Schwartz who presented to [facility] emergency room with a chief complaint of shortness of breath, patient is stating that her shortness of breath started 3-4 weeks ago and has been increasing, she was evaluated in the emergency room, d-dimer was elevated at 1.37, computed tomography scan angiogram of the chest was positive for segmental branch pulmonary embolism involving the right lower lobe medial basal branch, she was started on IV heparin in the emergency room and was admitted to telemetry floor for further evaluation and treatment. Patient denies any recent travel, denies any recent hip or knee surgery, denies any recent cast or brace to the lower extremities, however she states that she has been staying in bed for prolonged times due to depression. Patient states that she never smoked. Patient's symptoms have improved. Her insurance has a $40 co-pay for the Eliquis. She has been seen by pulmonary service. She is medically stable for discharge. [facility] services recommending between 3-6 months treatment for the PE. Patient does have a sedentary lifestyle due to her depression and likely this contributed to the development of her PE. We'll outpatient follow up with her PCP in 1 week I performed an examination of the patient and discussed their management with the physician Sheet Sewer. I have reviewed the Physician Sheet Sewer's notes and agree with the documented findings and plan of care Patient Condition at Discharge: Stable Plan - Discharge Summary Discharge Rx Participant: No New Discharge Prescriptions: New Apixaban [Eliquis] 10 mg PO BID #13 tab Apixaban [Eliquis] 5 mg PO BID #60 tab Continue Multivitamins, Thera [Multivitamin (formulary)] 1 tab PO HS Atorvastatin Calcium [Lipitor] 40 mg PO HS lamoTRIgine [LaMICtal] 100 mg PO HS Levothyroxine Sodium [Synthroid] 50 mcg PO DAILY Metoprolol Succinate (ER) [Toprol XL] 50 mg PO DAILY #30 tab LORazepam [Ativan] 0.5 mg PO BID Hydrochlorothiazide [Hydrodiuril] 25 mg PO DAILY Escitalopram [Lexapro] 20 mg PO DAILY Cholecalciferol [Vitamin D3] 1,000 unit PO HS Potassium Chloride ER [K-Dur 20] 20 meq PO HS Fish Oil/Dha/Epa [Fish Oil 1,200 mg Fish Oil] 1 cap PO DAILY Discontinued Aspirin EC [Ecotrin Low Dose] 81 mg PO HS Discharge Medication List Atorvastatin Calcium [Lipitor] 40 mg PO HS 07/29/16 [History] Levothyroxine Sodium [Synthroid] 50 mcg PO DAILY 07/29/16 [History] Metoprolol Succinate (ER) [Toprol XL] 50 mg PO DAILY #30 tab 07/29/16 [Rx] Multivitamins, Thera [Multivitamin (formulary)] 1 tab PO HS 07/29/16 [History] lamoTRIgine [LaMICtal] 100 mg PO HS 07/29/16 [History] Escitalopram [Lexapro] 20 mg PO DAILY 01/05/17 [History] Hydrochlorothiazide [Hydrodiuril] 25 mg PO DAILY 01/05/17 [History] LORazepam [Ativan] 0.5 mg PO BID 01/05/17 [History] Cholecalciferol [Vitamin D3] 1,000 unit PO HS 05/08/17 [History] Fish Oil/Dha/Epa [Fish Oil 1,200 mg Fish Oil] 1 cap PO DAILY 05/08/17 [History] Potassium Chloride ER [K-Dur 20] 20 meq PO HS 05/08/17 [History] Apixaban [Eliquis] 5 mg PO BID #60 tab 05/10/17 [Rx] Apixaban [Eliquis] 10 mg PO BID #13 tab 05/10/17 [Rx] Follow up Appointment(s)/Referral(s): Lydia Schwartz MD [Primary Care Provider] - 1 Week Activity/Diet/Wound Care/Special Instructions: Diet: cardiac Activity: as tolerated Discharge Disposition: HOME WITH HOME HEALTH SERVICES
--- NOTE | 2017-05-10 15:02 | P.PN ---
Subjective Progress Note Date: 05/10/17 This is a very pleasant 81-year-old female patient who follows with Dr. Schwartz as her primary care physician. 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 She is a lifelong nonsmoker. No COPD, no asthma. No pulmonary issues in the past. No inhalers. Not on home oxygen. She states she had been quite depressed over the past month or so and had been spending quite a bit of time in bed. She is usually ambulatory with a cane. Been having ongoing issues with shortness of breath over the past several weeks. It had been worse prior to her arrival here to the emergency room yesterday afternoon. She was initially seen at her PCPs office. An EKG was done for some concerns regarding abnormalities and she was sent to the emergency room for the same. She had some midsternal chest discomfort. No radiation. No aggravating or relieving factors. Troponins were negative. A d-dimer 1.37. Chest x-ray showed no acute cardiopulmonary process. CT angiogram did reveal a segmental branch pulmonary embolism in the right lower lobe medial basal branch. Was initiated on heparin and admitted for the same. She is seen today in consultation on the selective care unit. She denies any recent travel, surgery or injury. No prior history of blood clots. No family history of blood clots. She is awake and alert in no acute distress. She currently denies any chest discomfort. No shortness of breath, cough or congestion. No hemoptysis. He is maintaining good O2 saturations in the upper 90s on room air. She's been afebrile. Hemodynamically stable. On 05/10/2017 Seeing the patient for a follow-up. The patient is doing well. Nostril difficulties. She has been approved for oral anticoagulation with Eliquis. We are awaiting the final clearance from pharmacy as far as coverage of the medication and if so would proceed with discharge. The venous Doppler of the lower extremity showed no acute abnormalities and the patient has no evidence of DVT in the legs. The patient is afebrile. Pulse ox on room air is above 92%. Hemodynamically stable. Objective - Vital Signs Vital signs: Vital Signs Temp 97.1 F L 05/10/17 12:00 Pulse 55 L 05/10/17 12:00 Resp 16 05/10/17 12:00 BP 174/75 05/10/17 12:00 Pulse Ox 92 L 05/10/17 12:00 Intake & Output 05/09/17 05/10/17 05/10/17 18:59 06:59 18:59 Intake Total 680.000 80 635.558 Output Total 300 400 Balance 380.000 -320 635.558 Weight 72.575 kg 74.1 kg Intake: IV 80 Heparin Sod,Pork in 0.45% 80 NaCl 25,000 unit In 0.45 % NaCl 1 500ml.bag @ 18 UNITS/KG/HR 26.12 mls/hr IV .Q19H9M ANDRADE Rx#: [id number] Intake, IV Titration 500.000 35.558 Amount Heparin Sod,Pork in 0.45% 500.000 35.558 NaCl 25,000 unit In 0.45 % NaCl 1 500ml.bag @ 18 UNITS/KG/HR 26.12 mls/hr IV .Q19H9M ANDRADE Rx#: [id number] Oral 180 600 Output: Urine 300 400 Other: Voiding Method Bedside Commode Bedside Commode # Voids 5 2 - Exam GENERAL EXAM: Alert, comfortable in no apparent distress. HEAD: Normocephalic. EYES: Normal reaction of pupils, equal size. NOSE: Clear with pink turbinates. THROAT: No erythema or exudates. NECK: No masses, no JVD. CHEST: No chest wall deformity. LUNGS: Equal air entry with no crackles, wheeze, rhonchi or dullness. CVS: S1 and S2 normal with no audible murmur, regular rhythm. ABDOMEN: No hepatosplenomegaly, normal bowel sounds, no guarding or rigidity. SPINE: No scoliosis or deformity SKIN: No rashes CENTRAL NERVOUS SYSTEM: Right leg weakness secondary to previous CVA.. EXTREMITIES: There is no peripheral edema. No clubbing, no cyanosis. Peripheral pulses are intact. - Labs CBC & Chem 7: 05/10/17 06:32 05/08/17 16:53 Labs: Abnormal Lab Results - Last 24 Hours (Table) 05/10/17 Range/Units 06:32 APTT >200.0 H* (22.0-30.0) sec Assessment and Plan Plan: Impression: #1 Chest pain and shortness of breath secondary to a segmental branch pulmonary embolism involving the right lower lobe medial basal branch. [place] to be secondary to sedentary lifestyle over the past several weeks. #2 History of depression causing a recent sedentary lifestyle. #3 Previous history of CVA/TIA with right leg weakness from previous subdural hematoma in 2009. #4 Hyperlipidemia. #5 Hypertension. #6 Osteoarthritis with previous bilateral hip replacements and chronic hip and pelvic pain. #7 Hypothyroidism. Plan We'll decide this patient on oral anticoagulation with Eliquis. Recommend anticoagulant for a total of 6 months. Outpatient follow-up. Okay for discharge once clearance is given from pharmacy regarding prescription coverage.
== END 2017-05-10 15:09 | disposition home or self-care (01) | DRG 176 ==
LOC: EC 16:26 → 6SEL 22:45
PROVIDERS: ADMIT Internal Medicine; ATTEND Internal Medicine
DX: I26.99 Other pulmonary embolism without acute cor pulmonale (principal); I69.351 Hemiplegia and hemiparesis following cerebral infarction affecting right dominant side; E03.9 Hypothyroidism, unspecified; F32.9 Major depressive disorder, single episode, unspecified; F41.9 Anxiety disorder, unspecified; E78.5 Hyperlipidemia, unspecified; I10 Essential (primary) hypertension; M19.91 Primary osteoarthritis, unspecified site; Z79.82 Long term (current) use of aspirin; Z79.899 Other long term (current) drug therapy; Z96.643 Presence of artificial hip joint, bilateral; Z85.828 Personal history of other malignant neoplasm of skin; Z86.19 Personal history of other infectious and parasitic diseases; Z90.49 Acquired absence of other specified parts of digestive tract; Z90.710 Acquired absence of both cervix and uterus; Z98.42 Cataract extraction status, left eye; Z98.41 Cataract extraction status, right eye; Z96.1 Presence of intraocular lens; Z87.81 Personal history of (healed) traumatic fracture; Z88.5 Allergy status to narcotic agent
CPT/HCPCS: 36415; 71046; 71275; 80053; 82550; 82553; 83735; 83880; 84484; 85025; 85379; 85610; 85730; 93005; 93970; 99285

== ENCOUNTER 2017-05-15 09:38 | Emergency (ER) | payer MEDICARE ==
[2017-05-15 09:43] VITALS: RESP 18
--- NOTE | 2017-05-15 10:11 | ED ---
General Adult HPI - General Chief complaint: Chest Pain Stated complaint: Sob/had blood clot on lung Time Seen by Provider: 05/15/17 09:45 Source: patient, RN notes reviewed, old records reviewed Mode of arrival: wheelchair Limitations: no limitations - History of Present Illness Initial comments: 81-year-old female presenting with chief complaint of dyspnea. Patient was recently diagnosed with pulmonary embolism. She was started on Eliquis, discharged approximately 5 days ago. Patient states she was feeling better at the time of discharge. Over the past several days she has had worsening dyspnea and developed left-sided chest pain. Patient's pulmonary embolism was found on the right. Denies any lower extremity pain or swelling. She has been taking her medication as prescribed. Denies any central chest pain or pressure. Pain in the left side of her chest is intermittent, and sharp in nature. Main reason for ER visit is worsening dyspnea. No chest pain at the time my evaluation. - Related Data Home Medications Medication Instructions Recorded Confirmed Atorvastatin Calcium [Lipitor] 40 mg PO HS 07/29/16 05/15/17 Levothyroxine Sodium [Synthroid] 50 mcg PO DAILY 07/29/16 05/15/17 Multivitamins, Thera [Multivitamin 1 tab PO HS 07/29/16 05/15/17 (formulary)] lamoTRIgine [LaMICtal] 100 mg PO HS 07/29/16 05/15/17 Escitalopram [Lexapro] 20 mg PO DAILY 01/05/17 05/15/17 Hydrochlorothiazide [Hydrodiuril] 25 mg PO DAILY 01/05/17 05/15/17 LORazepam [Ativan] 0.5 mg PO BID 01/05/17 05/15/17 Cholecalciferol [Vitamin D3] 1,000 unit PO HS 05/08/17 05/15/17 Fish Oil/Dha/Epa [Fish Oil 1,200 1 cap PO DAILY 05/08/17 05/15/17 mg Fish Oil] Potassium Chloride ER [K-Dur 20] 20 meq PO HS 05/08/17 05/15/17 Previous Rx's Medication Instructions Recorded Metoprolol Succinate (ER) [Toprol 50 mg PO DAILY #30 tab 07/29/16 XL] Apixaban [Eliquis] 10 mg PO BID #13 tab 05/10/17 Allergies Allergy/AdvReac Type Severity Reaction Status Date / Time codeine AdvReac Nausea & Verified 05/15/17 10:09 Vomiting Review of Systems ROS Statement: Those systems with pertinent positive or pertinent negative responses have been documented in the HPI. ROS Other: All systems not noted in ROS Statement are negative. 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 History of Any Multi-Drug Resistant Organisms: None Reported Past Surgical History: Appendectomy, Bladder Surgery, Cholecystectomy, Hysterectomy, Joint Replacement, Orthopedic Surgery Additional Past Surgical History / Comment(s): bilateral hip replacements, cataract removal bilaterally with lens implants, bladder suspension surgery with mesh-states she is having difficulty with mesh, pelvic fx surgically repaired. Additional Past Anesthesia/Blood Transfusion Reaction / Comment(s): Pt states she had N/V following spinal anesthesia because her head was lifted up too soon. Pt has not recieved a blood transfusion. Past Psychological History: Anxiety, Bipolar Smoking Status: Never smoker - Past Family History Father Family Medical History: Myocardial Infarction ([place]) Mother Family Medical History: CVA/TIA, Hypertension Additional Family Medical History / Comment(s): Mother of a CVA General Exam Limitations: no limitations General appearance: alert, in no apparent distress Head exam: Present: atraumatic, normocephalic Eye exam: Present: normal appearance, PERRL, EOMI ENT exam: Present: normal exam Neck exam: Present: normal inspection. Absent: tenderness, meningismus Respiratory exam: Present: normal lung sounds bilaterally. Absent: respiratory distress, wheezes, rhonchi Cardiovascular Exam: Present: regular rate, normal rhythm GI/Abdominal exam: Present: soft. Absent: distended, tenderness Extremities exam: Present: normal inspection. Absent: normal capillary refill, pedal edema, calf tenderness Neurological exam: Present: alert, oriented X3, CN II-XII intact. Absent: motor sensory deficit Psychiatric exam: Present: normal affect, normal mood Skin exam: Present: warm, dry, intact. Absent: cyanosis, diaphoretic Course Vital Signs 05/15/17 05/15/17 09:41 11:19 Temperature 97.3 F L Pulse Rate 54 L 54 L Respiratory 18 18 Rate Blood Pressure 151/71 140/85 O2 Sat by Pulse 98 97 Oximetry EKG Findings - EKG Comments: EKG Findings:: EKG shows sinus bradycardia, ST segment depression in V6 and T- wave abnormality, ventricular rate 59, CT interval 180, QRS duration 86, QTC 429 , no significant change compared to EKG on 05/08/2017 Medical Decision Making - Medical Decision Making 81-year-old female presenting with dyspnea. On examination, patient's lungs are clear to auscultation, there is concern for failure of anticoagulation with the recent diagnosis of pulmonary embolism. CT angiography is obtained, this is negative for any pulmonary embolus including the previously seen right lower PE on computed tomography scan from May 08. Patient's vital signs are normal, she is saturating 95% or better on room air. Chest x-ray negative for focal pneumonia or air space disease. White blood cell count normal, hemoglobin normal electrolytes within normal limits, troponin negative. BNP is 45 which is normal, no clinical signs of heart failure. Patient will continue to take [place]. Regarding the mild intermittent left-sided upper chest pain, she is offered observation for cardiology evaluation. She declines. She will return with any worsening substernal chest pain. Continue taking Eliquis as prescribed. - Lab Data Result diagrams: 05/15/17 09:53 05/15/17 09:53 Lab Results 05/15/17 05/15/17 05/15/17 Range/Units 09:53 09:53 09:53 WBC 7.3 (3.8-10.6) k/uL RBC 4.92 (3.80-5.40) m/uL Hgb 15.3 (11.4-16.0) gm/dL Hct 44.5 (34.0-46.0) % MCV 90.5 (80.0-100.0) fL MCH 31.1 (25.0-35.0) pg MCHC 34.3 (31.0-37.0) g/dL RDW 13.7 (11.5-15.5) % Plt Count 198 (150-450) k/uL Neutrophils % 48 % Lymphocytes % 40 % Monocytes % 5 % Eosinophils % 5 % Basophils % 1 % Neutrophils # 3.5 (1.3-7.7) k/uL Lymphocytes # 2.9 (1.0-4.8) k/uL Monocytes # 0.4 (0-1.0) k/uL Eosinophils # 0.3 (0-0.7) k/uL Basophils # 0.0 (0-0.2) k/uL PT (9.0-12.0) sec INR (<1.2) APTT (22.0-30.0) sec Sodium 142 (137-145) mmol/L Potassium 4.2 (3.5-5.1) mmol/L Chloride 100 (98-107) mmol/L Carbon Dioxide 29 (22-30) mmol/L Anion Gap 13 mmol/L BUN 20 H (7-17) mg/dL Creatinine 0.65 (0.52-1.04) mg/dL Est GFR (CKD-EPI)AfAm >90 (>60 ml/min/1.73 sqM) Est GFR (CKD-EPI)NonAf 83 (>60 ml/min/1.73 sqM) Glucose 121 H (74-99) mg/dL Calcium 10.1 (8.4-10.2) mg/dL Magnesium 1.7 (1.6-2.3) mg/dL Total Bilirubin 0.5 (0.2-1.3) mg/dL AST 39 H (14-36) U/L ALT 63 H (9-52) U/L Alkaline Phosphatase 92 (38-126) U/L Total Creatine Kinase 35 (30-135) U/L CK-MB (CK-2) <0.2 (0.0-2.4) ng/mL CK-MB (CK-2) Rel Index Troponin I <0.012 (0.000-0.034) ng/mL NT-Pro-B Natriuret Pep pg/mL Total Protein 7.3 (6.3-8.2) g/dL Albumin 4.5 (3.5-5.0) g/dL 05/15/17 05/15/17 Range/Units 09:53 09:53 WBC (3.8-10.6) k/uL RBC (3.80-5.40) m/uL Hgb (11.4-16.0) gm/dL Hct (34.0-46.0) % MCV (80.0-100.0) fL MCH (25.0-35.0) pg MCHC (31.0-37.0) g/dL RDW (11.5-15.5) % Plt Count (150-450) k/uL Neutrophils % % Lymphocytes % % Monocytes % % Eosinophils % % Basophils % % Neutrophils # (1.3-7.7) k/uL Lymphocytes # (1.0-4.8) k/uL Monocytes # (0-1.0) k/uL Eosinophils # (0-0.7) k/uL Basophils # (0-0.2) k/uL PT 10.6 (9.0-12.0) sec INR 1.1 (<1.2) APTT 27.4 (22.0-30.0) sec Sodium (137-145) mmol/L Potassium (3.5-5.1) mmol/L Chloride (98-107) mmol/L Carbon Dioxide (22-30) mmol/L Anion Gap mmol/L BUN (7-17) mg/dL Creatinine (0.52-1.04) mg/dL Est GFR (CKD-EPI)AfAm (>60 ml/min/1.73 sqM) Est GFR (CKD-EPI)NonAf (>60 ml/min/1.73 sqM) Glucose (74-99) mg/dL Calcium (8.4-10.2) mg/dL Magnesium (1.6-2.3) mg/dL Total Bilirubin (0.2-1.3) mg/dL AST (14-36) U/L ALT (9-52) U/L Alkaline Phosphatase (38-126) U/L Total Creatine Kinase (30-135) U/L CK-MB (CK-2) (0.0-2.4) ng/mL CK-MB (CK-2) Rel Index Troponin I (0.000-0.034) ng/mL NT-Pro-B Natriuret Pep 45 pg/mL Total Protein (6.3-8.2) g/dL Albumin (3.5-5.0) g/dL Disposition Clinical Impression: Dyspnea Disposition: HOME SELF-CARE Condition: Fair Instructions: Dyspnea (ED) Additional Instructions: Please return with any worsening or changing symptoms. Referrals: Lydia Schwartz MD [Primary Care Provider] - 1-2 days Time of Disposition: 12:02
[2017-05-15] MEDS ORDERED: RX INFO: IV CONTRAST WAS GIVEN 1 EACH MISC MISCELLANE PRN (10:12)
[2017-05-15 10:23] LABS: Basophils % (A) 1 %; Eosinophils # (A) 0.3 k/uL (0-0.7); Eosinophils % (A) 5 %; HCT 44.5 % (34.0-46.0); HGB 15.3 gm/dL (11.4-16.0); Lymphocytes # (A) 2.9 k/uL (1.0-4.8); Lymphocytes % (A) 40 %; MCH 31.1 pg (25.0-35.0); MCHC 34.3 g/dL (31.0-37.0); MCV 90.5 fL (80.0-100.0); Mean Platelet Volume 7.2; Monocytes # (A) 0.4 k/uL (0-1.0); Monocytes % (A) 5 %; Neutrophils # (A) 3.5 k/uL (1.3-7.7); Neutrophils % (A) 48 %; Platelet Count 198 k/uL (150-450); RBC 4.92 m/uL (3.80-5.40); RDW 13.7 % (11.5-15.5); WBC 7.3 k/uL (3.8-10.6)
--- NOTE | 2017-05-15 10:26 | XR ---
EXAMINATION TYPE: XR chest 1V portable DATE OF EXAM: 05/15/2017 HISTORY: Shortness of breath. COMPARISON: 05/08/2017 TECHNIQUE: Single view of the chest is submitted. FINDINGS: Demonstrated are scattered senescent parenchymal change. There is no evidence for focal infiltrate. The heart is stable. Hilar and mediastinal structures are within normal limits. Degenerative changes are seen of the dorsal spine. IMPRESSION: 1. Chronic changes without evidence for acute pulmonary disease.
[2017-05-15 10:31] LABS: INR 1.1 (<1.2); Partial Thromboplastin Time 27.4 sec (22.0-30.0); Prothrombin Time 10.6 sec (9.0-12.0)
[2017-05-15 10:33] LABS: ALT 63 U/L (9-52); AST 39 U/L (14-36); Albumin 4.5 g/dL (3.5-5.0); Alkaline Phosphatase 92 U/L (38-126); Anion Gap 13 mmol/L; Blood Urea Nitrogen 20 mg/dL (7-17); Calcium 10.1 mg/dL (8.4-10.2); Carbon Dioxide 29 mmol/L (22-30); Chloride 100 mmol/L (98-107); Glucose 121 mg/dL (74-99); Magnesium 1.7 mg/dL (1.6-2.3); Potassium 4.2 mmol/L (3.5-5.1); Sodium 142 mmol/L (137-145); Total Bilirubin 0.5 mg/dL (0.2-1.3); Total Protein 7.3 g/dL (6.3-8.2)
[2017-05-15 10:51] LABS: Creatine Kinase 35 U/L (30-135)
[2017-05-15 11:01] LABS: Creatine Kinase MB <0.2 ng/mL (0.0-2.4); Troponin I <0.012 ng/mL (0.000-0.034)
--- NOTE | 2017-05-15 11:32 | CT ---
EXAMINATION TYPE: CT angio chest DATE OF EXAM: 05/15/2017 COMPARISON: NONE HISTORY: SOB and chest pressure CT DLP: 588 mGycm CONTRAST: CT chest with contrast and 3D reconstruction with MIP imaging is performed with IV Contrast, patient injected with 86 mL of Omnipaque 350. Contrast-enhanced CT of the chest was performed through the course of the pulmonary arteries with marcin g and mediastinal window settings submitted. 3D reconstruction with MIP imaging was also performed. PULMONARY ARTERIES: The pulmonary arteries and their major tributaries are patent. I do not see raysa dence for sizable filling defect to suggest pulmonary embolic process. LUNGS: The lungs are clear and free of infiltrate. Scattered parenchymal scarring noted. No evidence for atelectasis. No pulmonary nodule or mass is detected. No pleural effusion. MEDIASTINUM: Thoracic aorta is of normal caliber,however, evaluation is limited given timing of the contrast bolus. If there is concern for thoracic aortic pathology consider [place]. Correlate clinicall y . The heart is not enlarged. No evidence for mediastinal mass. No mediastinal lymph nodes greater than 1cm. HILAR STRUCTURES: No evidence for mass. No hilar lymph nodes greater than 1 cm. UPPER ABDOMEN: No significant abnormality is seen. IMPRESSION: 1. No evidence for Pulmonary embolism at this time.
[2017-05-15 12:28] VITALS: BP 144/76; PULSE 58; TEMP 98.7
== END 2017-05-15 12:27 | disposition home or self-care (01) ==
LOC: EC 09:38
DX: R06.00 Dyspnea, unspecified (principal); R07.9 Chest pain, unspecified; E78.5 Hyperlipidemia, unspecified; I10 Essential (primary) hypertension; E03.9 Hypothyroidism, unspecified; F41.9 Anxiety disorder, unspecified; F31.9 Bipolar disorder, unspecified; Z86.73 Personal history of transient ischemic attack (TIA), and cerebral infarction without residual deficits; Z85.828 Personal history of other malignant neoplasm of skin; Z96.643 Presence of artificial hip joint, bilateral; Z79.899 Other long term (current) drug therapy
CPT/HCPCS: 99285; 36415; 93005; 83880; 80053; 82550; 82553; 83735; 84484; 85025; 85610; 85730; 71045; 71275; Q9967

== ENCOUNTER 2018-02-13 14:43 | Emergency (ER) | payer MEDICARE ==
[2018-02-13 15:24] VITALS: RESP 20
[2018-02-13] MEDS ORDERED: SODIUM CHLORIDE 0.9% 1,000 ML IV STA (15:38)
--- NOTE | 2018-02-13 15:43 | ED ---
General Adult HPI - General Chief complaint: Urogenital Stated complaint: bladder infection Time Seen by Provider: 02/13/18 15:28 Source: patient, RN notes reviewed Mode of arrival: wheelchair Limitations: no limitations - History of Present Illness Initial comments: Patient's a 82-year-old female presenting to the emergency room today with her caregiver with possible urinary tract infection with concern for dehydration. Patient does admit that she's had some symptoms of urinary urgency. She states that she has been on antibiotics of Augmentin for the past 4 days and still having the symptoms. She denies any other complaints or symptoms currently. Patient denies any recent fever, chills, shortness of breath, chest pain, back pain, abdominal pain, nausea or vomiting, headaches or visual changes, or any other complaints. - Related Data Home Medications Medication Instructions Recorded Confirmed Atorvastatin Calcium [Lipitor] 40 mg PO HS 07/29/16 02/13/18 Levothyroxine Sodium [Synthroid] 50 mcg PO DAILY 07/29/16 02/13/18 Multivitamins, Thera [Multivitamin 1 tab PO HS 07/29/16 02/13/18 (formulary)] lamoTRIgine [LaMICtal] 100 mg PO HS 07/29/16 02/13/18 Escitalopram [Lexapro] 20 mg PO DAILY 01/05/17 02/13/18 LORazepam [Ativan] 0.5 mg PO BID 01/05/17 02/13/18 Cholecalciferol [Vitamin D3] 1,000 unit PO HS 05/08/17 02/13/18 Fish Oil/Dha/Epa [Fish Oil 1,200 1 cap PO DAILY 05/08/17 02/13/18 mg Fish Oil] Potassium Chloride ER [K-Dur 20] 20 meq PO HS 05/08/17 02/13/18 Amoxic-Pot Clav 875-125Mg 1 tab PO BID 02/13/18 02/13/18 [Augmentin 875-125] Aspirin [[place] Aspirin EC] 81 mg PO DAILY 02/13/18 02/13/18 Ranitidine HCl [Zantac] 150 mg PO DAILY 02/13/18 02/13/18 Previous Rx's Medication Instructions Recorded Metoprolol Succinate (ER) [Toprol 50 mg PO DAILY #30 tab 07/29/16 XL] Allergies Allergy/AdvReac Type Severity Reaction Status Date / Time codeine AdvReac Nausea & Verified 02/13/18 17:33 Vomiting Review of Systems ROS Statement: Those systems with pertinent positive or pertinent negative responses have been documented in the HPI. ROS Other: All systems not noted in ROS Statement are negative. 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 History of Any Multi-Drug Resistant Organisms: None Reported Past Surgical History: Appendectomy, Bladder Surgery, Cholecystectomy, Hysterectomy, Joint Replacement, Orthopedic Surgery Additional Past Surgical History / Comment(s): bilateral hip replacements, cataract removal bilaterally with lens implants, bladder suspension surgery with mesh-states she is having difficulty with mesh, pelvic fx surgically repaired. Additional Past Anesthesia/Blood Transfusion Reaction / Comment(s): Pt states she had N/V following spinal anesthesia because her head was lifted up too soon. Pt has not recieved a blood transfusion. Past Psychological History: Anxiety, Bipolar Smoking Status: Never smoker Past Alcohol Use History: None Reported Past Drug Use History: None Reported - Past Family History Father Family Medical History: Myocardial Infarction ([place]) Mother Family Medical History: CVA/TIA, Hypertension Additional Family Medical History / Comment(s): Mother of a CVA General Exam - General Exam Comments Initial Comments: General: The patient is awake and alert, in no distress, and does not appear acutely ill. Eye: There is normal conjunctiva bilaterally. No signs of icterus. Ears, nose, mouth and throat: There are moist mucous membranes and no oral lesions. Neck: The neck is supple, there is no tenderness or JVD. Cardiovascular: There is a regular rate and rhythm. No murmur, rub or gallop is appreciated. Respiratory: Lungs are clear to auscultation, respirations are non-labored, breath sounds are equal. No wheezes, stridor, rales, or rhonchi. Gastrointestinal: Soft, non-distended, non-tender abdomen without masses or organomegaly noted. Musculoskeletal: Normal ROM, no tenderness. Neurological: A&O x 3. CN II-XII intact, There are no obvious motor or sensory deficits. Coordination appears grossly intact. Speech is normal. Skin: Skin is warm and dry and no rashes or lesions are noted. Psychiatric: Cooperative, appropriate mood & affect, normal judgment. Limitations: no limitations Course Vital Signs 02/13/18 02/13/18 15:22 16:10 Temperature 98.1 F Pulse Rate 51 L 55 L Respiratory 20 20 Rate Blood Pressure 113/65 126/96 O2 Sat by Pulse 96 99 Oximetry Medical Decision Making - Medical Decision Making Patient reexamined at this time shows no signs of distress. She is resting comfortably. Patient states that she would like to be discharged. Her labs been reviewed. Urine sample shows 10 white cells. Patient's been on Augmentin for the past 4 days. Please note culture to compare to at this time. Culture is pending at this time. Patient will be given dose of Rocephin here in the emergency room. She feels comfortable being discharged does not want to stay in the hospital. Her heart rates been in the 50s here. She is on metoprolol at home. Patient will be discharged. Follow-up family doctor tomorrow returning if symptoms increase or worsen. - Lab Data Result diagrams: 02/13/18 16:05 02/13/18 16:05 Lab Results 02/13/18 02/13/18 02/13/18 Range/Units 16:05 16:05 16:20 WBC 5.5 (3.8-10.6) k/uL RBC 4.55 (3.80-5.40) m/uL Hgb 14.0 (11.4-16.0) gm/dL Hct 41.6 (34.0-46.0) % MCV 91.3 (80.0-100.0) fL MCH 30.7 (25.0-35.0) pg MCHC 33.6 (31.0-37.0) g/dL RDW 13.3 (11.5-15.5) % Plt Count 190 (150-450) k/uL Neutrophils % (Manual) 49 % Band Neutrophils % 1 % Lymphocytes % (Manual) 38 % Monocytes % (Manual) 4 % Eosinophils % (Manual) 7 % Basophils % (Manual) 1 % Neutrophils # (Manual) 2.70 (1.3-7.7) k/uL Lymphocytes # (Manual) 2.09 (1.0-4.8) k/uL Monocytes # (Manual) 0.22 (0-1.0) k/uL Eosinophils # (Manual) 0.39 (0-0.7) k/uL Basophils # (Manual) 0.06 (0-0.2) k/uL Nucleated RBCs 0 (0-0) /100 WBC Toxic Granulation Present Sodium 139 (137-145) mmol/L Potassium 4.4 (3.5-5.1) mmol/L Chloride 106 (98-107) mmol/L Carbon Dioxide 24 (22-30) mmol/L Anion Gap 9 mmol/L BUN 17 (7-17) mg/dL Creatinine 0.51 L (0.52-1.04) mg/dL Est GFR (CKD-EPI)AfAm >90 (>60 ml/min/1.73 sqM) Est GFR (CKD-EPI)NonAf 90 (>60 ml/min/1.73 sqM) Glucose 107 H (74-99) mg/dL Calcium 9.4 (8.4-10.2) mg/dL Total Bilirubin 0.4 (0.2-1.3) mg/dL AST 31 (14-36) U/L ALT 34 (9-52) U/L Alkaline Phosphatase 69 (38-126) U/L Total Protein 6.6 (6.3-8.2) g/dL Albumin 3.9 (3.5-5.0) g/dL Urine Color Yellow Urine Appearance Cloudy H (Clear) Urine pH 5.0 (5.0-8.0) Ur Specific [place] 1.021 (1.001-1.035) Urine Protein Trace H (Negative) Urine Glucose (UA) Negative (Negative) Urine Ketones Trace H (Negative) Urine Blood Trace H (Negative) Urine Nitrite Negative (Negative) Urine Bilirubin Negative (Negative) Urine Urobilinogen 2.0 (<2.0) mg/dL Ur Leukocyte Esterase Moderate H (Negative) Urine RBC 3 (0-5) /hpf Urine WBC 10 H (0-5) /hpf Ur Squamous Epith Cells 14 H (0-4) /hpf Urine Mucus Occasional H (None) /hpf Disposition Clinical Impression: UTI (urinary tract infection) Disposition: HOME SELF-CARE Condition: Good Instructions: Urinary Tract Infection in Women (ED) Additional Instructions: Please use medication as discussed. Please follow-up with family doctor in the next 2 days. Please return to emergency room if the symptoms increase or worsen or for any other concerns. Is patient prescribed a controlled substance at d/c from ED?: No Referrals: Lydia Schwartz MD [Primary Care Provider] - 1-2 days Time of Disposition: 17:48
[2018-02-13 16:43] LABS: HCT 41.6 % (34.0-46.0); MCH 30.7 pg (25.0-35.0); MCHC 33.6 g/dL (31.0-37.0); MCV 91.3 fL (80.0-100.0); Platelet Count 190 k/uL (150-450); RBC 4.55 m/uL (3.80-5.40); RDW 13.3 % (11.5-15.5); WBC 5.5 k/uL (3.8-10.6)
[2018-02-13 16:47] LABS: ALT 34 U/L (9-52); AST 31 U/L (14-36); Albumin 3.9 g/dL (3.5-5.0); Alkaline Phosphatase 69 U/L (38-126); Anion Gap 9 mmol/L; Blood Urea Nitrogen 17 mg/dL (7-17); Calcium 9.4 mg/dL (8.4-10.2); Carbon Dioxide 24 mmol/L (22-30); Chloride 106 mmol/L (98-107); Glucose 107 mg/dL (74-99); Potassium 4.4 mmol/L (3.5-5.1); Sodium 139 mmol/L (137-145); Total Bilirubin 0.4 mg/dL (0.2-1.3); Total Protein 6.6 g/dL (6.3-8.2)
[2018-02-13 16:53] LABS: Appearance,Urine Cloudy (Clear); Bilirubin,Urine Negative (Negative); Blood,Urine Trace (Negative); Color,Urine Yellow; Glucose,Urine (UA) Negative (Negative); Ketones,Urine Trace (Negative); Leukocyte Esterase,Urine Moderate (Negative); Mucus,Urine Occasional /hpf; Nitrite,Urine Negative (Negative); Protein,Urine Trace (Negative); RBC,Urine 3 /hpf (0-5); Specific Gravity,Urine 1.021 (1.001-1.035); Squamous Epithelial Cell,Urine 14 /hpf (0-4); WBC,Urine 10 /hpf (0-5)
[2018-02-13 17:08] LABS: Band Neutrophils % 1 %; Basophils # (M) 0.06 k/uL (0-0.2); Eosinophils # (M) 0.39 k/uL (0-0.7); Lymphocytes # (M) 2.09 k/uL (1.0-4.8); Monocytes # (M) 0.22 k/uL (0-1.0); Neutrophils % (M) 49 %; Nucleated Red Blood Cells 0 /100 WBC (0-0); Total Cells Counted 100; Toxic Granulation Present
[2018-02-13 19:44] VITALS: BP 128/80; PULSE 58; TEMP 98.8
== END 2018-02-13 19:44 | disposition home or self-care (01) ==
LOC: EC 14:43
DX: N39.0 Urinary tract infection, site not specified (principal); E78.5 Hyperlipidemia, unspecified; I10 Essential (primary) hypertension; E07.9 Disorder of thyroid, unspecified; E03.9 Hypothyroidism, unspecified; F41.9 Anxiety disorder, unspecified; F31.9 Bipolar disorder, unspecified; Z79.82 Long term (current) use of aspirin; Z79.899 Other long term (current) drug therapy; Z88.5 Allergy status to narcotic agent; Z86.73 Personal history of transient ischemic attack (TIA), and cerebral infarction without residual deficits; Z85.828 Personal history of other malignant neoplasm of skin; Z96.643 Presence of artificial hip joint, bilateral
CPT/HCPCS: 36415; 80053; 85025; 81001; 87086; 99283; 96365; 96361; J0696; 99285

== ENCOUNTER 2018-02-20 09:33 | Inpatient (IN) | payer MEDICARE ==
[2018-02-20] MEDS ORDERED: SODIUM CHLORIDE 0.9% 1,000 ML IV STA ×2 (09:45→10:30)
--- NOTE | 2018-02-20 09:45 | ED ---
Weakness HPI - General Stated complaint: UTI Time Seen by Provider: 02/20/18 09:40 Source: RN notes reviewed, old records reviewed - History of Present Illness Initial comments: This is a 82-year-old female the ER for evaluation of severe diarrhea, not feeling well weakness. Patient has recent history of antibiotic he secondary to urinary tract infection. Diarrhea has been profuse throughout the day getting worse. No significant abdominal pain mild nausea no vomiting. Denies fever MD Complaint: generalized weakness (With diarrhea) -: days(s) (2) Severity: moderate Severity scale (1-10): 6 Consistency: constant Improves with: none Worsens with: movement Context: new medication (Patient recent antibiotics for UTI), recent illness Associated Symptoms: fever/chills, nausea/vomiting - Related Data Home Medications Medication Instructions Recorded Confirmed Levothyroxine Sodium [Synthroid] 50 mcg PO DAILY 07/29/16 02/20/18 Multivitamins, Thera [Multivitamin 1 tab PO HS 07/29/16 02/20/18 (formulary)] lamoTRIgine [LaMICtal] 100 mg PO HS 07/29/16 02/20/18 Escitalopram [Lexapro] 20 mg PO DAILY 01/05/17 02/20/18 LORazepam [Ativan] 0.25 mg PO BID 01/05/17 02/20/18 Cholecalciferol [Vitamin D3] 1,000 unit PO HS 05/08/17 02/20/18 Fish Oil/Dha/Epa [Fish Oil 1,200 1 cap PO HS 05/08/17 02/20/18 mg Fish Oil] Potassium Chloride ER [K-Dur 20] 20 meq PO DAILY 05/08/17 02/20/18 Aspirin [[place] Aspirin EC] 81 mg PO DAILY 02/13/18 02/20/18 Ranitidine HCl [Zantac] 150 mg PO DAILY 02/13/18 02/20/18 Atorvastatin [Lipitor] 10 mg PO HS 02/20/18 02/20/18 Metoprolol Succinate (ER) [Toprol 25 mg PO DAILY 02/20/18 02/20/18 XL] Allergies Allergy/AdvReac Type Severity Reaction Status Date / Time codeine AdvReac Nausea & Verified 02/20/18 10:20 Vomiting Review of Systems ROS Statement: Those systems with pertinent positive or pertinent negative responses have been documented in the HPI. ROS Other: All systems not noted in ROS Statement are negative. 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 History of Any Multi-Drug Resistant Organisms: None Reported Past Surgical History: Appendectomy, Bladder Surgery, Cholecystectomy, Hysterectomy, Joint Replacement, Orthopedic Surgery Additional Past Surgical History / Comment(s): bilateral hip replacements, cataract removal bilaterally with lens implants, bladder suspension surgery with mesh-states she is having difficulty with mesh, pelvic fx surgically repaired. Additional Past Anesthesia/Blood Transfusion Reaction / Comment(s): Pt states she had N/V following spinal anesthesia because her head was lifted up too soon. Pt has not recieved a blood transfusion. Past Psychological History: Anxiety, Bipolar Smoking Status: Never smoker Past Alcohol Use History: None Reported Past Drug Use History: None Reported - Past Family History Father Family Medical History: Myocardial Infarction ([place]) Mother Family Medical History: CVA/TIA, Hypertension Additional Family Medical History / Comment(s): Mother of a CVA General Exam General appearance: alert, in no apparent distress, in distress Head exam: Present: atraumatic, normocephalic, normal inspection Eye exam: Present: normal appearance, PERRL, EOMI. Absent: scleral icterus, conjunctival injection, periorbital swelling ENT exam: Present: normal exam, mucous membranes moist Neck exam: Present: normal inspection. Absent: tenderness, meningismus, lymphadenopathy Respiratory exam: Present: normal lung sounds bilaterally. Absent: respiratory distress, wheezes, rales, rhonchi, stridor Cardiovascular Exam: Present: regular rate, normal rhythm, normal heart sounds. Absent: systolic murmur, diastolic murmur, rubs, gallop, clicks GI/Abdominal exam: Present: soft, normal bowel sounds. Absent: distended, tenderness, guarding, rebound, rigid Extremities exam: Present: normal inspection, full ROM, normal capillary refill. Absent: tenderness, pedal edema, joint swelling, calf tenderness Back exam: Present: normal inspection Neurological exam: Present: alert, oriented X3, CN II-XII intact Psychiatric exam: Present: normal affect, normal mood Skin exam: Present: warm, dry, intact, normal color. Absent: rash Course Vital Signs 02/20/18 02/20/18 02/20/18 09:40 09:42 09:45 Temperature 99.6 F Pulse Rate 70 71 Respiratory 20 Rate Blood Pressure 97/61 O2 Sat by Pulse 93 L 94 L 93 L Oximetry 02/20/18 02/20/18 02/20/18 10:00 10:15 10:30 Temperature Pulse Rate 74 67 65 Respiratory Rate Blood Pressure 97/61 86/67 118/53 O2 Sat by Pulse 93 L 93 L 95 Oximetry 02/20/18 02/20/18 02/20/18 10:45 11:00 11:15 Temperature Pulse Rate 62 64 62 Respiratory Rate Blood Pressure 110/61 115/52 119/64 O2 Sat by Pulse Oximetry - Reevaluation(s) Reevaluation #1: 02/20/18 12:10 Medical record is reviewed including prior hospitalization for UTI Reevaluation #2: 02/20/18 12:10 Patient still having profuse, copious diarrhea - Consultations Consultation #1: Spoke with Dr. Musa who is agreeable for the admission EKG Findings - EKG Comments: EKG Findings:: EKG shows normal sinus rhythm rate of 64, VA 166, QRS 80, QTC 445 Medical Decision Making - Medical Decision Making 82 female the ER positive C. diff colitis, patient to be admitted on oral antibiotics, vancomycin. - Lab Data Result diagrams: 02/20/18 09:50 02/20/18 09:50 Lab Results 02/20/18 02/20/18 02/20/18 Range/Units 09:50 09:50 09:50 WBC 15.5 H (3.8-10.6) k/uL RBC 4.46 (3.80-5.40) m/uL Hgb 13.8 (11.4-16.0) gm/dL Hct 40.8 (34.0-46.0) % MCV 91.4 (80.0-100.0) fL MCH 31.0 (25.0-35.0) pg MCHC 33.9 (31.0-37.0) g/dL RDW 13.2 (11.5-15.5) % Plt Count 184 (150-450) k/uL Neutrophils % 85 % Lymphocytes % 9 % Monocytes % 4 % Eosinophils % 1 % Basophils % 0 % Neutrophils # 13.2 H (1.3-7.7) k/uL Lymphocytes # 1.4 (1.0-4.8) k/uL Monocytes # 0.6 (0-1.0) k/uL Eosinophils # 0.1 (0-0.7) k/uL Basophils # 0.0 (0-0.2) k/uL Sodium 140 (137-145) mmol/L Potassium 3.6 (3.5-5.1) mmol/L Chloride 108 H (98-107) mmol/L Carbon Dioxide 20 L (22-30) mmol/L Anion Gap 12 mmol/L BUN 24 H (7-17) mg/dL Creatinine 0.62 (0.52-1.04) mg/dL Est GFR (CKD-EPI)AfAm >90 (>60 ml/min/1.73 sqM) Est GFR (CKD-EPI)NonAf 84 (>60 ml/min/1.73 sqM) Glucose 139 H (74-99) mg/dL Calcium 9.2 (8.4-10.2) mg/dL Phosphorus 3.5 (2.5-4.5) mg/dL Magnesium 1.5 L (1.6-2.3) mg/dL Total Bilirubin 1.1 (0.2-1.3) mg/dL AST 27 (14-36) U/L ALT 30 (9-52) U/L Alkaline Phosphatase 85 (38-126) U/L Total Creatine Kinase 55 (30-135) U/L CK-MB (CK-2) 0.4 (0.0-2.4) ng/mL CK-MB (CK-2) Rel Index 0.7 Troponin I <0.012 (0.000-0.034) ng/mL Total Protein 6.5 (6.3-8.2) g/dL Albumin 3.6 (3.5-5.0) g/dL Urine Color Urine Appearance (Clear) Urine pH (5.0-8.0) Ur Specific [place] (1.001-1.035) Urine Protein (Negative) Urine Glucose (UA) (Negative) Urine Ketones (Negative) Urine Blood (Negative) Urine Nitrite (Negative) Urine Bilirubin (Negative) Urine Urobilinogen (<2.0) mg/dL Ur Leukocyte Esterase (Negative) Urine RBC (0-5) /hpf Urine WBC (0-5) /hpf Urine WBC Clumps (None) /hpf Urine Bacteria (None) /hpf Hyaline Casts (0-2) /lpf Urine Mucus (None) /hpf C. difficile (EIA) Intrp (Negative) 02/20/18 02/20/18 Range/Units 09:50 09:50 WBC (3.8-10.6) k/uL RBC (3.80-5.40) m/uL Hgb (11.4-16.0) gm/dL Hct (34.0-46.0) % MCV (80.0-100.0) fL MCH (25.0-35.0) pg MCHC (31.0-37.0) g/dL RDW (11.5-15.5) % Plt Count (150-450) k/uL Neutrophils % % Lymphocytes % % Monocytes % % Eosinophils % % Basophils % % Neutrophils # (1.3-7.7) k/uL Lymphocytes # (1.0-4.8) k/uL Monocytes # (0-1.0) k/uL Eosinophils # (0-0.7) k/uL Basophils # (0-0.2) k/uL Sodium (137-145) mmol/L Potassium (3.5-5.1) mmol/L Chloride (98-107) mmol/L Carbon Dioxide (22-30) mmol/L Anion Gap mmol/L BUN (7-17) mg/dL Creatinine (0.52-1.04) mg/dL Est GFR (CKD-EPI)AfAm (>60 ml/min/1.73 sqM) Est GFR (CKD-EPI)NonAf (>60 ml/min/1.73 sqM) Glucose (74-99) mg/dL Calcium (8.4-10.2) mg/dL Phosphorus (2.5-4.5) mg/dL Magnesium (1.6-2.3) mg/dL Total Bilirubin (0.2-1.3) mg/dL AST (14-36) U/L ALT (9-52) U/L Alkaline Phosphatase (38-126) U/L Total Creatine Kinase (30-135) U/L CK-MB (CK-2) (0.0-2.4) ng/mL CK-MB (CK-2) Rel Index Troponin I (0.000-0.034) ng/mL Total Protein (6.3-8.2) g/dL Albumin (3.5-5.0) g/dL Urine Color Yellow Urine Appearance Clear (Clear) Urine pH 5.5 (5.0-8.0) Ur Specific [place] 1.023 (1.001-1.035) Urine Protein 1+ H (Negative) Urine Glucose (UA) Negative (Negative) Urine Ketones 2+ H (Negative) Urine Blood Moderate H (Negative) Urine Nitrite Negative (Negative) Urine Bilirubin Negative (Negative) Urine Urobilinogen <2.0 (<2.0) mg/dL Ur Leukocyte Esterase Negative (Negative) Urine RBC 2 (0-5) /hpf Urine WBC 3 (0-5) /hpf Urine WBC Clumps Rare H (None) /hpf Urine Bacteria Rare H (None) /hpf Hyaline Casts 10 H (0-2) /lpf Urine Mucus Rare H (None) /hpf C. difficile (EIA) Intrp Positive A (Negative) Disposition Clinical Impression: C. difficile colitis Disposition: ADMITTED IP TO THIS HOSP Condition: Fair Is patient prescribed a controlled substance at d/c from ED?: No Referrals: Lydia Schwartz MD [Primary Care Provider] - 1-2 days
[2018-02-20] MEDS ORDERED: PANTOPRAZOLE 40 MG/10 ML VIAL IVP STA (10:29)
[2018-02-20] MEDS ORDERED: ONDANSETRON 4 MG/2 ML VIAL IVP STA (10:29)
[2018-02-20] MEDS ORDERED: MORPHINE SULFATE 4 MG/ML SYRINGE IVP STA ×2 (10:29→12:49)
[2018-02-20 10:37] LABS: Basophils % (A) 0 %; Eosinophils # (A) 0.1 k/uL (0-0.7); Eosinophils % (A) 1 %; HCT 40.8 % (34.0-46.0); HGB 13.8 gm/dL (11.4-16.0); Lymphocytes # (A) 1.4 k/uL (1.0-4.8); Lymphocytes % (A) 9 %; MCHC 33.9 g/dL (31.0-37.0); MCV 91.4 fL (80.0-100.0); Mean Platelet Volume 7.2; Monocytes # (A) 0.6 k/uL (0-1.0); Monocytes % (A) 4 %; Neutrophils # (A) 13.2 k/uL (1.3-7.7); Neutrophils % (A) 85 %; Platelet Count 184 k/uL (150-450); RBC 4.46 m/uL (3.80-5.40); RDW 13.2 % (11.5-15.5); WBC 15.5 k/uL (3.8-10.6)
[2018-02-20 10:55] LABS: ALT 30 U/L (9-52); AST 27 U/L (14-36); Albumin 3.6 g/dL (3.5-5.0); Alkaline Phosphatase 85 U/L (38-126); Anion Gap 12 mmol/L; Blood Urea Nitrogen 24 mg/dL (7-17); Calcium 9.2 mg/dL (8.4-10.2); Carbon Dioxide 20 mmol/L (22-30); Chloride 108 mmol/L (98-107); Glucose 139 mg/dL (74-99); Magnesium 1.5 mg/dL (1.6-2.3); Phosphorus 3.5 mg/dL (2.5-4.5); Potassium 3.6 mmol/L (3.5-5.1); Sodium 140 mmol/L (137-145); Total Bilirubin 1.1 mg/dL (0.2-1.3); Total Protein 6.5 g/dL (6.3-8.2)
[2018-02-20 10:57] LABS: Appearance,Urine Clear (Clear); Bacteria,Urine Rare /hpf; Bilirubin,Urine Negative (Negative); Blood,Urine Moderate (Negative); Color,Urine Yellow; Glucose,Urine (UA) Negative (Negative); Hyaline Casts,Urine 10 /lpf (0-2); Ketones,Urine 2+ (Negative); Leukocyte Esterase,Urine Negative (Negative); Mucus,Urine Rare /hpf; Nitrite,Urine Negative (Negative); PH, Urine 5.5 (5.0-8.0); Protein,Urine 1+ (Negative); RBC,Urine 2 /hpf (0-5); Specific Gravity,Urine 1.023 (1.001-1.035); Urobilinogen,Urine <2.0 mg/dL (<2.0); WBC,Urine 3 /hpf (0-5)
[2018-02-20 10:58] LABS: Creatine Kinase 55 U/L (30-135)
[2018-02-20 11:11] LABS: Creatine Kinase MB 0.4 ng/mL (0.0-2.4); Troponin I <0.012 ng/mL (0.000-0.034)
[2018-02-20] MEDS ORDERED: SODIUM CHLORIDE 0.9% 1,000 ML IV ONE (12:07)
--- NOTE | 2018-02-20 15:01 | P.HPIM ---
History of Present Illness H&P Date: 02/20/18 Chief Complaint: Weakness and diarrhea This is a 82-year-old patient of Dr. Cazares. Patient presented to the emergency room with complaints of increased weakness and diarrhea. Patient states she's been on antibiotics for UTI over the past 2 weeks. Patient has had increased diarrhea for the past week. Patient was positive for C. diff on admit. Patient does complain of some abdominal discomfort with bowel movements. Patient denies any nausea or vomiting. She does have a low-grade temperature 99.5. Patient does have a past medical history for skin cancer, CVA 10 years ago, hyperlipidemia, hypertension, osteoarthritis, hypothyroidism, appendectomy , bladder surgery, Colace, hysterectomy and bipolar. White blood cell also elevated at 15.5. Urine culture ordered this time patient denies any chest pain or shortness breath. Patient denies nausea vomiting or diarrhea. Patient denies any urinary burning or frequency. Review of Systems please refer to HPI otherwise unremarkable Past Medical History Past Medical History: Cancer, CVA/TIA, Hyperlipidemia, Hypertension, Osteoarthritis (OA), Pulmonary Embolus (PE), Syncope, Thyroid Disorder Additional Past Medical History / Comment(s): Pt had recent UTI treated with antibiotics. 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 History of Any Multi-Drug Resistant Organisms: None Reported Past Surgical History: Appendectomy, Bladder Surgery, Cholecystectomy, Hysterectomy, Joint Replacement, Orthopedic Surgery Additional Past Surgical History / Comment(s): bilateral hip replacements, cataract removal bilaterally with lens implants, bladder suspension surgery with mesh-states she is having difficulty with mesh, pelvic fx surgically repaired. Additional Past Anesthesia/Blood Transfusion Reaction / Comment(s): Pt states she had N/V following spinal anesthesia because her head was lifted up too soon. Pt has not recieved a blood transfusion. Smoking Status: Never smoker - Past Family History Father Family Medical History: Myocardial Infarction ([place]) Mother Family Medical History: CVA/TIA, Hypertension Additional Family Medical History / Comment(s): Mother of a CVA Medications and Allergies Home Medications Medication Instructions Recorded Confirmed Type Levothyroxine Sodium [Synthroid] 50 mcg PO DAILY 07/29/16 02/20/18 History Multivitamins, Thera [Multivitamin 1 tab PO HS 07/29/16 02/20/18 History (formulary)] lamoTRIgine [LaMICtal] 100 mg PO HS 07/29/16 02/20/18 History Escitalopram [Lexapro] 20 mg PO DAILY 01/05/17 02/20/18 History LORazepam [Ativan] 0.25 mg PO BID 01/05/17 02/20/18 History Cholecalciferol [Vitamin D3] 1,000 unit PO HS 05/08/17 02/20/18 History Fish Oil/Dha/Epa [Fish Oil 1,200 1 cap PO HS 05/08/17 02/20/18 History mg Fish Oil] Potassium Chloride ER [K-Dur 20] 20 meq PO DAILY 05/08/17 02/20/18 History Aspirin [[place] Aspirin EC] 81 mg PO DAILY 02/13/18 02/20/18 History Ranitidine HCl [Zantac] 150 mg PO DAILY 02/13/18 02/20/18 History Atorvastatin [Lipitor] 10 mg PO HS 02/20/18 02/20/18 History Metoprolol Succinate (ER) [Toprol 25 mg PO DAILY 02/20/18 02/20/18 History XL] Allergies Allergy/AdvReac Type Severity Reaction Status Date / Time codeine AdvReac Nausea & Verified 02/20/18 10:20 Vomiting Physical Exam Vitals: Vital Signs Temp Pulse Resp BP Pulse Ox 02/20/18 13:01 63 18 123/61 97 02/20/18 11:15 62 119/64 02/20/18 11:00 64 115/52 02/20/18 10:45 62 110/61 02/20/18 10:30 65 118/53 95 02/20/18 10:15 67 86/67 93 L 02/20/18 10:00 74 97/61 93 L 02/20/18 09:45 71 93 L 02/20/18 09:42 94 L 02/20/18 09:40 99.6 F 70 20 97/61 93 L Intake and Output 02/19/18 02/20/18 02/20/18 22:59 06:59 14:59 Other: Weight 74.843 kg Head normocephalic Neck supple Lungs clear to auscultation bilaterally no wheezing or crackles Heart regular rate and rhythm S1-S2, no rub or gallop Abdomen is soft nontender nondistended positive bowel sounds no hepatosplenomegaly Extremities no edema Neuro alert and orientated to 3 Patient does have fecal management system in place Results CBC & Chem 7: 02/20/18 09:50 02/20/18 09:50 Labs: Abnormal Lab Results - Last 24 Hours (Table) 02/20/18 02/20/18 02/20/18 Range/Units 09:50 09:50 09:50 WBC 15.5 H (3.8-10.6) k/uL Neutrophils # 13.2 H (1.3-7.7) k/uL Chloride 108 H (98-107) mmol/L Carbon Dioxide 20 L (22-30) mmol/L BUN 24 H (7-17) mg/dL Glucose 139 H (74-99) mg/dL Magnesium 1.5 L (1.6-2.3) mg/dL Urine Protein 1+ H (Negative) Urine Ketones 2+ H (Negative) Urine Blood Moderate H (Negative) Urine WBC Clumps Rare H (None) /hpf Urine Bacteria Rare H (None) /hpf Hyaline Casts 10 H (0-2) /lpf Urine Mucus Rare H (None) /hpf C. difficile (EIA) Intrp (Negative) 02/20/18 Range/Units 09:50 WBC (3.8-10.6) k/uL Neutrophils # (1.3-7.7) k/uL Chloride (98-107) mmol/L Carbon Dioxide (22-30) mmol/L BUN (7-17) mg/dL Glucose (74-99) mg/dL Magnesium (1.6-2.3) mg/dL Urine Protein (Negative) Urine Ketones (Negative) Urine Blood (Negative) Urine WBC Clumps (None) /hpf Urine Bacteria (None) /hpf Hyaline Casts (0-2) /lpf Urine Mucus (None) /hpf C. difficile (EIA) Intrp Positive A (Negative) Thrombosis Risk Factor Assmnt - Choose All That Apply Any of the Below Risk Factors Present?: Yes Each Factor Represents 1 point: Obesity (BMI >25) Other Risk Factors: Yes Each Risk Factor Represents 3 Points: Age 75 years or older, History of DVT/PE Other congenital or acquired thrombophilia - If yes, enter type in comment: No Thrombosis Risk Factor Assessment Total Risk Factor Score: 7 Thrombosis Risk Factor Assessment Level: High Risk Assessment and Plan Assessment: 1. Diarrhea related to C. diff. Patient currently on oral vancomycin. Patient did receive 2 L of normal saline done emergency room. Normal saline at 100. Dr. Whyte per infectious disease consulted 2. Recent urinary tract infection. Urine culture ordered. UA sample obtained through straight cath 3. Essential hypertension 4. Hypothyroidism 5. Bipolar. Home meds resumed 6. History of CVA 10 years prior 7. History of osteoarthritis DVT prophylaxis Lovenox. GI prophylaxis Protonix Time with Patient: Greater than 30 (Greater than 60% of the total time spent in counseling and coordination of care. I performed an examination of the patient and discussed their management with the Nurse Practitioner. I have reviewed the Nurse Practitioner's notes and agree with the documented findings and plan of care)
[2018-02-20] MEDS: CHERRY FLAVOR 60 ML BOTTLE PO PRN (17:41)
[2018-02-20] MEDS ORDERED: VANCOMYCIN ORAL SOLUTION 250 MG/5 ML BOTTLE PO SCH (18:00)
[2018-02-20] MEDS: ATORVASTATIN 10 MG TAB PO SCH (22:47)
[2018-02-20] MEDS: LACTOBACILLUS ACIDOPH & BULGAR 1 EACH PACKET PO SCH (22:47)
[2018-02-20] MEDS: LORazepam 0.5 MG TAB PO SCH (22:47)
[2018-02-20] MEDS: VANCOMYCIN ORAL SOLUTION 250 MG/5 ML BOTTLE PO SCH (22:48)
[2018-02-20] MEDS: lamoTRIgine 100 MG TAB PO SCH (22:48)
[2018-02-20] MEDS: CHOLECALCIFEROL 1,000 UNIT TAB PO SCH (22:48)
--- NOTE | 2018-02-20 23:15 | CONS ---
CONSULTATION DATE OF SERVICE: 02/20/2018. REASON FOR FOLLOWUP: C difficile colitis. HISTORY OF PRESENT ILLNESS: The patient is an 82-year-old female presenting to the ER with chief complaints of increased weakness and diarrhea. Her symptoms have been going on for the last week. The patient has diarrhea with multiple loose stools during the day, at least 4-5, it is watery with no blood or mucus in it. The patient also has some crampy left lower abdominal pain. However, the patient was unable to quantify any further. The patient has felt nauseated but no vomiting. The patient denies any fever. Apparently the patient has been exposed to the oral antibiotic for 2 weeks for possible UTI. With these symptoms, the patient was evaluated by the ER physician. On arrival to the ER, the patient did have a low-grade fever of 99.6. The patient's white count was elevated at 15.5. UA, leukocyte esterase was negative. Rare WBC clumps and stool for C difficile came back positive. The patient subsequently has been admitted to hospital. The patient has been started on oral vancomycin 125 mg p.o. q.6 hours. Infectious Disease was consulted for further recommendation regarding antibiotic therapy. REVIEW OF SYSTEMS: Positive points have been mentioned in HPI. The rest of system has been negative. PAST MEDICAL HISTORY: Recurrent UTIs, CVA, TIA, hypertension, hyperlipidemia, osteoarthritis, hypothyroidism, pulmonary embolism, subdural hematoma, skin cancer. PAST SURGICAL HISTORY: Appendectomy, bladder surgery, cholecystectomy, hysterectomy, bilateral hip replacement, cataract removal, bladder suspension. SOCIAL HISTORY: No history of smoking, drinking or drug use. FAMILY HISTORY: Father history of [place]. Mother history of CVA, TIA, hypertension. ALLERGIES: CODEINE. MEDICATIONS: The patient is currently on Tylenol, aspirin, Lipitor, vitamin D3, Lovenox, Lexapro, Lamictal, Synthroid, Ativan, Toprol-XL, Protonix, K-Dur, vancomycin 25 p.o. q.6 hours. PHYSICAL EXAMINATION: Blood pressure 128/65 with a pulse of 71, temperature 98.5. She is 93% on room air. General description is an elderly female lying in bed in no distress. No tachypnea or accessory muscles of respiration use. HEENT: Shows slight pallor. No scleral icterus. Oral mucosa membranes are dry. No pharyngeal erythema or thrush. NECK: Trachea central. No thyromegaly. Lungs: Unlabored breathing. Clear to auscultation anteriorly. Heart S1, S2. Regular rate and rhythm. ABDOMEN: Soft. Mildly distended and tender in all four quadrants. No guarding or rigidity. Extremities: No edema of the feet. Skin examination: No rash or mass palpable. NEUROLOGICAL: Patient is awake, alert, oriented times two. Mood and affect normal. LABS: Hemoglobin 13.1, white count 15.5, BUN of 24, creatinine 0.02, electrolytes have been normal. Liver enzymes are normal. Stool for C difficile is positive. DIAGNOSTIC IMPRESSION AND PLAN: Patient with acute C difficile colitis in a patient admitted to the hospital with significant diarrhea with symptoms has been going on for about a week. The patient has been exposed to multiple antibiotics for almost the last 2 weeks for a UTI. Likely asymptomatic C difficile colitis. However, this is her first episode as for as the history obtained from this patient. PLAN: 1. We will increase the Vancomycin p.o. q6 hours. 2. Discontinue the Protonix to decrease risk of recurrence. 3. Patient advised to increase yogurt and we will add Lactinex. 4. We will follow up on clinical condition to further adjust medication if needed. Thank you for this consultation. We will follow the patient along with you. MMODL / IJN: [id number] /
[2018-02-21] MEDS: LEVOTHYROXINE 50 MCG TAB PO SCH (05:56)
[2018-02-21] MEDS: VANCOMYCIN ORAL SOLUTION 250 MG/5 ML BOTTLE PO SCH ×4 (05:56→23:20)
[2018-02-21] MEDS: ESCITALOPRAM 20 MG TAB PO SCH (07:51)
[2018-02-21] MEDS: LORazepam 0.5 MG TAB PO SCH ×2 (07:51→20:14)
[2018-02-21] MEDS: POTASSIUM CHLORIDE ER 20 MEQ TAB.ER PO SCH ×6 (07:51→18:08)
[2018-02-21] MEDS: FAMOTIDINE 20 MG TAB PO SCH (07:51)
[2018-02-21] MEDS: ASPIRIN 81 MG PO SCH (07:51)
[2018-02-21] MEDS: METOPROLOL SUCCINATE (ER) 25 MG TAB.ER.24H PO SCH (07:51)
[2018-02-21] MEDS: ENOXAPARIN 40 MG/0.4 ML SYRINGE SQ SCH (07:51)
[2018-02-21] MEDS: LACTOBACILLUS ACIDOPH & BULGAR 1 EACH PACKET PO SCH ×2 (07:58→20:14)
[2018-02-21 08:48] LABS: Basophils % (A) 0 %; Eosinophils # (A) 0.2 k/uL (0-0.7); Eosinophils % (A) 1 %; HGB 11.8 gm/dL (11.4-16.0); Lymphocytes % (A) 16 %; MCH 30.5 pg (25.0-35.0); MCHC 32.8 g/dL (31.0-37.0); MCV 93.1 fL (80.0-100.0); Monocytes # (A) 0.4 k/uL (0-1.0); Monocytes % (A) 4 %; Neutrophils # (A) 9.2 k/uL (1.3-7.7); Neutrophils % (A) 77 %; Platelet Count 159 k/uL (150-450); RBC 3.87 m/uL (3.80-5.40); RDW 13.4 % (11.5-15.5)
[2018-02-21] MEDS ORDERED: PANTOPRAZOLE 40 MG/10 ML VIAL IVP SCH (09:00)
[2018-02-21 10:03] LABS: ALT 29 U/L (9-52); AST 25 U/L (14-36); Albumin 2.8 g/dL (3.5-5.0); Alkaline Phosphatase 69 U/L (38-126); Anion Gap 8 mmol/L; Blood Urea Nitrogen 19 mg/dL (7-17); Calcium 8.4 mg/dL (8.4-10.2); Carbon Dioxide 23 mmol/L (22-30); Chloride 109 mmol/L (98-107); Glucose 129 mg/dL (74-99); Magnesium 1.7 mg/dL (1.6-2.3); Potassium 2.8 mmol/L (3.5-5.1); Sodium 140 mmol/L (137-145); Total Bilirubin 0.6 mg/dL (0.2-1.3); Total Protein 5.2 g/dL (6.3-8.2)
[2018-02-21] MEDS ORDERED: Potassium Replacement Protocol 1 EACH MISC MISCELLANE PRN (10:24)
[2018-02-21 10:42] VITALS: BMI 26.6
--- NOTE | 2018-02-21 11:30 | P.PN ---
Subjective Progress Note Date: 02/21/18 This is a 82-year-old patient of Dr. Cazares. Patient presented to the emergency room with complaints of increased weakness and diarrhea. Patient states she's been on antibiotics for UTI over the past 2 weeks. Patient has had increased diarrhea for the past week. Patient was positive for C. diff on admit. Patient does complain of some abdominal discomfort with bowel movements. Patient denies any nausea or vomiting. She does have a low-grade temperature 99.5. Patient does have a past medical history for skin cancer, CVA 10 years ago, hyperlipidemia, hypertension, osteoarthritis, hypothyroidism, appendectomy , bladder surgery, Colace, hysterectomy and bipolar. White blood cell also elevated at 15.5. Urine culture ordered this time patient denies any chest pain or shortness breath. Patient denies nausea vomiting or diarrhea. Patient denies any urinary burning or frequency. 02/21/2018 patient still having diarrhea. She is on oral vancomycin for C. diff colitis. Reports improvement in her abdominal pain. Denies any chest pain shortness breath. Denies any nausea or vomiting. Denies any burning with urination. Objective - Vital Signs Vital signs: Vital Signs Temp 97.0 F L 02/21/18 07:40 Pulse 71 02/21/18 07:40 Resp 16 02/21/18 08:00 BP 130/58 02/21/18 07:40 Pulse Ox 94 L 02/21/18 07:40 Intake & Output 02/20/18 02/21/18 02/21/18 18:59 06:59 18:59 Intake Total 200 Output Total 2400 Balance -2200 Weight 74.843 kg 74.843 kg 74.843 kg Intake: Oral 200 Output: Urine 2400 Straight 800 Other: Voiding Method Incontinent # Voids 200 # Bowel Movements 1 - Exam Head normocephalic Neck supple Lungs clear to auscultation bilaterally no wheezing or crackles Heart regular rate and rhythm S1-S2, no rub or gallop Abdomen is soft nondistended diffuse tenderness positive bowel sounds Extremities no edema Neuro alert and orientated to 3 - Labs CBC & Chem 7: 02/21/18 08:31 02/21/18 08:31 Labs: Abnormal Lab Results - Last 24 Hours (Table) 02/21/18 02/21/18 Range/Units 08:31 08:31 WBC 12.0 H (3.8-10.6) k/uL Neutrophils # 9.2 H (1.3-7.7) k/uL Potassium 2.8 L (3.5-5.1) mmol/L Chloride 109 H (98-107) mmol/L BUN 19 H (7-17) mg/dL Glucose 129 H (74-99) mg/dL Total Protein 5.2 L (6.3-8.2) g/dL Albumin 2.8 L (3.5-5.0) g/dL Microbiology - Last 24 Hours (Table) 02/20/18 09:50 Urine Culture - Preliminary Urine,Catheterized Assessment and Plan Assessment: 1. C. diff colitis: Continue oral vancomycin. Infectious disease is following. Continue IV fluids. Agree with discontinuing the Protonix 2. Recent urinary tract infection and treated with antibiotics. Await urine culture 3. Essential hypertension 4. Hypothyroidism 5. Bipolar. Home meds resumed 6. History of CVA 10 years prior 7. History of osteoarthritis DVT prophylaxis Lovenox. I performed an examination of the patient and discussed their management with the physician Seam Checker. I have reviewed the Physician Seam Checker's notes and agree with the documented findings and plan of care
[2018-02-21] MEDS: CHERRY FLAVOR 60 ML BOTTLE PO PRN ×2 (12:20→18:08)
[2018-02-21] MEDS: ACETAMINOPHEN TAB 325 MG TAB PO PRN (18:07)
[2018-02-21] MEDS: CHOLECALCIFEROL 1,000 UNIT TAB PO SCH (20:14)
[2018-02-21] MEDS: lamoTRIgine 100 MG TAB PO SCH (20:14)
[2018-02-21] MEDS: ATORVASTATIN 10 MG TAB PO SCH (20:14)
[2018-02-21] MEDS ORDERED: POTASSIUM CHLORIDE ER 20 MEQ TAB.ER PO STA (21:52)
--- NOTE | 2018-02-21 22:16 | PN ---
PROGRESS NOTE DATE OF SERVICE: 02/21/2018. REASON FOR FOLLOW UP: C dif colitis. INTERVAL HISTORY: The patient is currently afebrile. She denies having any fever or chills. Denies having any chest pain or shortness of breath or cough. Abdominal pain has improved. No nausea, vomiting and diarrhea has slowed off. EXAMINATION: Blood pressure 120/60 with a pulse of 72. Temperature 97.6. She is 95% on room air. General description is an elderly female, lying in bed in no distress. Respiratory system: Unlabored breathing. Clear to auscultation anteriorly. Heart S1, S2. Regular rate and rhythm. ABDOMEN: Soft, mild distention. No guarding or rigidity. [place]S: [place] [id number]. DIAGNOSTIC IMPRESSION AND PLAN: Patient with acute C difficile colitis. The patient slowly clinically responding to the p.o. vancomycin that will be continued for now. The patient advised to increase her yogurt intake and continue supportive care. MMODL / IJN: [id number] /
[2018-02-22] MEDS: LEVOTHYROXINE 50 MCG TAB PO SCH (05:42)
[2018-02-22] MEDS: VANCOMYCIN ORAL SOLUTION 250 MG/5 ML BOTTLE PO SCH ×4 (05:42→23:50)
[2018-02-22] MEDS: ESCITALOPRAM 20 MG TAB PO SCH (07:47)
[2018-02-22] MEDS: LACTOBACILLUS ACIDOPH & BULGAR 1 EACH PACKET PO SCH ×2 (07:47→21:09)
[2018-02-22] MEDS: METOPROLOL SUCCINATE (ER) 25 MG TAB.ER.24H PO SCH (07:47)
[2018-02-22] MEDS: FAMOTIDINE 20 MG TAB PO SCH (07:47)
[2018-02-22] MEDS: LORazepam 0.5 MG TAB PO SCH ×2 (07:48→21:08)
[2018-02-22] MEDS: POTASSIUM CHLORIDE ER 20 MEQ TAB.ER PO SCH (07:48)
[2018-02-22] MEDS: ASPIRIN 81 MG PO SCH (07:48)
[2018-02-22] MEDS: ACETAMINOPHEN TAB 325 MG TAB PO PRN (07:48)
[2018-02-22] MEDS: ENOXAPARIN 40 MG/0.4 ML SYRINGE SQ SCH (07:50)
[2018-02-22 08:27] LABS: ALT 36 U/L (9-52); AST 34 U/L (14-36); Albumin 2.6 g/dL (3.5-5.0); Alkaline Phosphatase 74 U/L (38-126); Anion Gap 6 mmol/L; Blood Urea Nitrogen 11 mg/dL (7-17); Calcium 8.5 mg/dL (8.4-10.2); Carbon Dioxide 22 mmol/L (22-30); Chloride 113 mmol/L (98-107); Glucose 93 mg/dL (74-99); Potassium 3.9 mmol/L (3.5-5.1); Sodium 141 mmol/L (137-145); Total Bilirubin 0.4 mg/dL (0.2-1.3); Total Protein 5.1 g/dL (6.3-8.2)
[2018-02-22 08:30] LABS: Basophils % (A) 0 %; Eosinophils # (A) 0.4 k/uL (0-0.7); Eosinophils % (A) 5 %; HCT 35.7 % (34.0-46.0); HGB 11.9 gm/dL (11.4-16.0); Lymphocytes # (A) 1.8 k/uL (1.0-4.8); Lymphocytes % (A) 20 %; MCH 30.9 pg (25.0-35.0); MCHC 33.3 g/dL (31.0-37.0); MCV 92.8 fL (80.0-100.0); Mean Platelet Volume 6.9; Monocytes # (A) 0.3 k/uL (0-1.0); Monocytes % (A) 4 %; Neutrophils # (A) 6.4 k/uL (1.3-7.7); Neutrophils % (A) 70 %; Platelet Count 172 k/uL (150-450); RBC 3.84 m/uL (3.80-5.40); RDW 13.5 % (11.5-15.5); WBC 9.1 k/uL (3.8-10.6)
--- NOTE | 2018-02-22 12:23 | P.PN ---
Subjective Progress Note Date: 02/22/18 This is a 82-year-old patient of Dr. Cazares. Patient presented to the emergency room with complaints of increased weakness and diarrhea. Patient states she's been on antibiotics for UTI over the past 2 weeks. Patient has had increased diarrhea for the past week. Patient was positive for C. diff on admit. Patient does complain of some abdominal discomfort with bowel movements. Patient denies any nausea or vomiting. She does have a low-grade temperature 99.5. Patient does have a past medical history for skin cancer, CVA 10 years ago, hyperlipidemia, hypertension, osteoarthritis, hypothyroidism, appendectomy , bladder surgery, Colace, hysterectomy and bipolar. White blood cell also elevated at 15.5. Urine culture ordered this time patient denies any chest pain or shortness breath. Patient denies nausea vomiting or diarrhea. Patient denies any urinary burning or frequency. 02/21/2018 patient still having diarrhea. She is on oral vancomycin for C. diff colitis. Reports improvement in her abdominal pain. Denies any chest pain shortness breath. Denies any nausea or vomiting. Denies any burning with urination. 02/22/2018 patient lying in bed comfortably. Reports abdominal pain improving. Per nursing 8 stools total yesterday. There is only one stool this morning. Stool becoming slightly more formed. Patient had urinary retention required a Vanegas catheter to be inserted. Urinalysis with culture ordered because urine is very cloudy and concentrated. Patient has poor appetite still having multiple stools. We'll continue IV fluids normal saline at 50 mL an hour Objective - Vital Signs Vital signs: Vital Signs Temp 97.7 F 02/22/18 06:42 Pulse 60 02/22/18 06:42 Resp 18 02/22/18 08:00 BP 142/80 02/22/18 06:42 Pulse Ox 96 02/22/18 06:42 Intake & Output 02/21/18 02/22/18 02/22/18 18:59 06:59 18:59 Intake Total 450 Output Total 300 400 Balance -300 50 Weight 74.843 kg 74.843 kg 74.843 kg Intake: Oral 450 Output: Urine 300 400 Straight 300 Other: Voiding Method Incontinent Incontinent Incontinent # Voids 0 # Bowel Movements 6 3 - Exam Head normocephalic Neck supple Lungs clear to auscultation bilaterally no wheezing or crackles Heart regular rate and rhythm S1-S2, no rub or gallop Abdomen is soft nondistended diffuse tenderness positive bowel sounds Extremities no edema Neuro alert and orientated to 3 - Labs CBC & Chem 7: 02/22/18 07:48 02/22/18 07:48 Labs: Abnormal Lab Results - Last 24 Hours (Table) 02/21/18 02/22/18 Range/Units 15:33 07:48 Potassium 3.2 L (3.5-5.1) mmol/L Chloride 113 H (98-107) mmol/L Creatinine 0.51 L (0.52-1.04) mg/dL Total Protein 5.1 L (6.3-8.2) g/dL Albumin 2.6 L (3.5-5.0) g/dL Microbiology - Last 24 Hours (Table) 02/20/18 09:50 Urine Culture - Final Urine,Catheterized Assessment and Plan Assessment: 1. C. diff colitis: Continue oral vancomycin. Infectious disease is following. Continue IV fluids. Agree with discontinuing the Protonix. Stool is becoming more formed 2. Recent urinary tract infection and treated with antibiotics. 3. Essential hypertension 4. Hypothyroidism 5. Bipolar. Home meds resumed 6. History of CVA 10 years prior 7. History of osteoarthritis 8. Urinary retention: Required Vanegas catheter insertion. Recheck urinalysis with culture 9. Hypokalemia resolved with supplemental 10. Severe protein calorie malnutrition continue protein drinks 11. Consult physical therapy DVT prophylaxis Lovenox. I performed an examination of the patient and discussed their management with the physician [employer]. I have reviewed the Physician [employer]'s notes and agree with the documented findings and plan of care
[2018-02-22] MEDS: SODIUM CHLORIDE 0.9% 1,000 ML IV SCH (12:52)
[2018-02-22] MEDS: CHERRY FLAVOR 60 ML BOTTLE PO PRN ×2 (12:52→23:51)
[2018-02-22 14:47] LABS: Appearance,Urine Clear (Clear); Bacteria,Urine Many /hpf; Bilirubin,Urine Negative (Negative); Blood,Urine Moderate (Negative); Color,Urine Yellow; Glucose,Urine (UA) Negative (Negative); Ketones,Urine Negative (Negative); Leukocyte Esterase,Urine Large (Negative); Mucus,Urine Many /hpf; Nitrite,Urine Positive (Negative); PH, Urine 5.5 (5.0-8.0); Protein,Urine Negative (Negative); RBC,Urine 16 /hpf (0-5); Specific Gravity,Urine 1.018 (1.001-1.035); Urobilinogen,Urine <2.0 mg/dL (<2.0); WBC,Urine 57 /hpf (0-5)
--- NOTE | 2018-02-22 15:52 | P.GSCN ---
History of Present Illness Consult date: 02/22/18 History of present illness: 82-year-old female in the hospital with weakness due to diarrhea from C. difficile colitis. She is gone into urinary retention. She is having incontinence. Catheter was placed. The amount of urine obtained is identified on the chart. The patient has been treated with antibiotics for infection. This is probably led to the colitis. She has been catheterized for 300 and 400 mL straight cath prior to her urine retention. Previously she has had a bladder suspension. She has had a stroke. She has had a subdural hematoma. She has weakness from her stroke. States that in the last couple of months she has had urgency incontinence. She states that she had some sort of "mesh" many years ago. She states that she's had problems urinating ever since. This is done in [place]. 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 The history is somewhat vague. She has no change in her neuropathy and/or neurologic symptoms from her stroke. Review of Systems - Constitutional Reports chronic pain Past Medical History Past Medical History: Cancer, CVA/TIA, Hyperlipidemia, Hypertension, Osteoarthritis (OA), Pulmonary Embolus (PE), Syncope, Thyroid Disorder Additional Past Medical History / Comment(s): Pt had recent UTI treated with antibiotics. 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 History of Any Multi-Drug Resistant Organisms: None Reported Past Surgical History: Appendectomy, Bladder Surgery, Cholecystectomy, Hysterectomy, Joint Replacement, Orthopedic Surgery Additional Past Surgical History / Comment(s): bilateral hip replacements, cataract removal bilaterally with lens implants, bladder suspension surgery with mesh-states she is having difficulty with mesh, pelvic fx surgically repaired. Additional Past Anesthesia/Blood Transfusion Reaction / Comm: Pt states she had N/V following spinal anesthesia because her head was lifted up too soon. Pt has not recieved a blood transfusion. Smoking Status: Never smoker - Past Family History Father Family Medical History: Myocardial Infarction ([place]) Mother Family Medical History: CVA/TIA, Hypertension Additional Family Medical History / Comment(s): Mother of a CVA Medications and Allergies Home Medications Medication Instructions Recorded Confirmed Type Levothyroxine Sodium [Synthroid] 50 mcg PO DAILY 07/29/16 02/20/18 History Multivitamins, Thera [Multivitamin 1 tab PO HS 07/29/16 02/20/18 History (formulary)] lamoTRIgine [LaMICtal] 100 mg PO HS 07/29/16 02/20/18 History Escitalopram [Lexapro] 20 mg PO DAILY 01/05/17 02/20/18 History LORazepam [Ativan] 0.25 mg PO BID 01/05/17 02/20/18 History Cholecalciferol [Vitamin D3] 1,000 unit PO HS 05/08/17 02/20/18 History Fish Oil/Dha/Epa [Fish Oil 1,200 1 cap PO HS 05/08/17 02/20/18 History mg Fish Oil] Potassium Chloride ER [K-Dur 20] 20 meq PO DAILY 05/08/17 02/20/18 History Aspirin [[place] Aspirin EC] 81 mg PO DAILY 02/13/18 02/20/18 History Ranitidine HCl [Zantac] 150 mg PO DAILY 02/13/18 02/20/18 History Atorvastatin [Lipitor] 10 mg PO HS 02/20/18 02/20/18 History Metoprolol Succinate (ER) [Toprol 25 mg PO DAILY 02/20/18 02/20/18 History XL] Allergies Allergy/AdvReac Type Severity Reaction Status Date / Time codeine AdvReac Nausea & Verified 02/20/18 10:20 Vomiting Surgical - Exam Vital Signs Temp Pulse Resp BP Pulse Ox 99.6 F 70 20 97/61 93 L 02/20/18 09:40 02/20/18 09:40 02/20/18 09:40 02/20/18 09:40 02/20/18 09:40 - General well developed, well nourished, no distress - Eyes PERRL - ENT no hearing loss - Neck trachea midline - Respiratory normal expansion, normal respiratory effort - Cardiovascular Rhythm: regular - Abdomen Abdomen: soft, non tender - Genitourinary normal external genitalia, normal perineum - Neurologic normal coordination, normal sensation - Psychiatric oriented to time, oriented to person, oriented to place, speech is normal, memory intact Results - Labs 02/22/18 07:48 02/22/18 07:48 Abnormal Lab Results - Last 24 Hours (Table) 02/21/18 02/22/18 Range/Units 15:33 07:48 Potassium 3.2 L (3.5-5.1) mmol/L Chloride 113 H (98-107) mmol/L Creatinine 0.51 L (0.52-1.04) mg/dL Total Protein 5.1 L (6.3-8.2) g/dL Albumin 2.6 L (3.5-5.0) g/dL Microbiology - Last 24 Hours (Table) 02/20/18 09:50 Urine Culture - Final Urine,Catheterized Diabetes panel 02/21/18 02/21/18 02/22/18 Range/Units 15:33 20:14 07:48 Sodium 141 (137-145) mmol/L Potassium 3.2 L 3.7 3.9 (3.5-5.1) mmol/L Chloride 113 H (98-107) mmol/L Carbon Dioxide 22 (22-30) mmol/L BUN 11 (7-17) mg/dL Creatinine 0.51 L (0.52-1.04) mg/dL Glucose 93 (74-99) mg/dL Calcium 8.5 (8.4-10.2) mg/dL AST 34 (14-36) U/L ALT 36 (9-52) U/L Alkaline Phosphatase 74 (38-126) U/L Total Protein 5.1 L (6.3-8.2) g/dL Albumin 2.6 L (3.5-5.0) g/dL Calcium panel 02/22/18 Range/Units 07:48 Calcium 8.5 (8.4-10.2) mg/dL Albumin 2.6 L (3.5-5.0) g/dL Pituitary panel 02/21/18 02/21/18 02/22/18 Range/Units 15:33 20:14 07:48 Sodium 141 (137-145) mmol/L Potassium 3.2 L 3.7 3.9 (3.5-5.1) mmol/L Chloride 113 H (98-107) mmol/L Carbon Dioxide 22 (22-30) mmol/L BUN 11 (7-17) mg/dL Creatinine 0.51 L (0.52-1.04) mg/dL Glucose 93 (74-99) mg/dL Calcium 8.5 (8.4-10.2) mg/dL Adrenal panel 02/21/18 02/21/18 02/22/18 Range/Units 15:33 20:14 07:48 Sodium 141 (137-145) mmol/L Potassium 3.2 L 3.7 3.9 (3.5-5.1) mmol/L Chloride 113 H (98-107) mmol/L Carbon Dioxide 22 (22-30) mmol/L BUN 11 (7-17) mg/dL Creatinine 0.51 L (0.52-1.04) mg/dL Glucose 93 (74-99) mg/dL Calcium 8.5 (8.4-10.2) mg/dL Total Bilirubin 0.4 (0.2-1.3) mg/dL AST 34 (14-36) U/L ALT 36 (9-52) U/L Alkaline Phosphatase 74 (38-126) U/L Total Protein 5.1 L (6.3-8.2) g/dL Albumin 2.6 L (3.5-5.0) g/dL Assessment and Plan Assessment: Impression: Incomplete bladder emptying. Recent history of urgency incontinence perhaps related to the bladder emptying. C. difficile colitis. Medical issues as outlined Recommendations: It is unclear as to the exact cause of her difficulty with urination. He has no obvious pelvic abnormalities. I recommend leaving the catheter in until her diarrhea is under control at which case we can remove it and do a voiding trial.
--- NOTE | 2018-02-22 16:26 | PN ---
PROGRESS NOTE DATE OF SERVICE: 02/22/2018. REASON FOR FOLLOWUP: C difficile colitis. INTERVAL HISTORY: The patient is afebrile. She is breathing comfortably. The patient denies having any chest pain or shortness of breath or cough. 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 No nausea, no vomiting. PHYSICAL EXAMINATION: Her blood pressure is 131/63 with a pulse of 50, temperature 97 she is 98% on room air. General description is an elderly female, lying in bed in no distress. Respiratory system: Unlabored breathing. Clear to auscultation anteriorly. Heart S1, S2. Regular rate and rhythm. ABDOMEN: Soft, no tenderness. Extremities: No edema of the feet. LABS: Hemoglobin 11.9, white count 9.1. BUN of 11, creatinine 0.51. Her UA has been significantly positive. DIAGNOSTIC IMPRESSION AND PLAN: 1. Patient with C difficile colitis. The patient seemed to have shown clinical improvement. Her white count has normalized. We will keep the patient on vancomycin 250 p.o. Keflex along with Questran. 2. The patient who does have positive UA however no significant urinary symptoms. We will hold on adding any further antibiotic therapy at this point. 3. Continue supportive care. MMODL / IJN: [id number] /
[2018-02-22] MEDS: CHOLESTYRAMINE (WITH SUGAR) 4 GM PACKET PO SCH (17:44)
[2018-02-22] MEDS: lamoTRIgine 100 MG TAB PO SCH (21:08)
[2018-02-22] MEDS: CHOLECALCIFEROL 1,000 UNIT TAB PO SCH (21:08)
[2018-02-22] MEDS: ATORVASTATIN 10 MG TAB PO SCH (21:08)
[2018-02-23] MEDS: LEVOTHYROXINE 50 MCG TAB PO SCH (06:13)
[2018-02-23] MEDS: CHERRY FLAVOR 60 ML BOTTLE PO PRN ×3 (06:14→17:11)
[2018-02-23] MEDS: VANCOMYCIN ORAL SOLUTION 250 MG/5 ML BOTTLE PO SCH ×3 (06:14→17:11)
[2018-02-23 08:10] LABS: ALT 36 U/L (9-52); AST 28 U/L (14-36); Albumin 2.4 g/dL (3.5-5.0); Alkaline Phosphatase 56 U/L (38-126); Anion Gap 4 mmol/L; Blood Urea Nitrogen 6 mg/dL (7-17); Carbon Dioxide 23 mmol/L (22-30); Chloride 114 mmol/L (98-107); Glucose 88 mg/dL (74-99); Potassium 3.5 mmol/L (3.5-5.1); Sodium 141 mmol/L (137-145); Total Bilirubin 0.2 mg/dL (0.2-1.3); Total Protein 4.8 g/dL (6.3-8.2)
[2018-02-23] MEDS: ESCITALOPRAM 20 MG TAB PO SCH (08:21)
[2018-02-23] MEDS: CHOLESTYRAMINE (WITH SUGAR) 4 GM PACKET PO SCH ×2 (08:21→17:11)
[2018-02-23] MEDS: LORazepam 0.5 MG TAB PO SCH ×2 (08:21→21:38)
[2018-02-23] MEDS: METOPROLOL SUCCINATE (ER) 25 MG TAB.ER.24H PO SCH (08:21)
[2018-02-23] MEDS: POTASSIUM CHLORIDE ER 20 MEQ TAB.ER PO SCH (08:21)
[2018-02-23] MEDS: ENOXAPARIN 40 MG/0.4 ML SYRINGE SQ SCH (08:22)
[2018-02-23] MEDS: ASPIRIN 81 MG PO SCH (08:22)
[2018-02-23] MEDS: LACTOBACILLUS ACIDOPH & BULGAR 1 EACH PACKET PO SCH ×2 (08:22→21:38)
[2018-02-23] MEDS: FAMOTIDINE 20 MG TAB PO SCH (08:22)
[2018-02-23] MEDS: SODIUM CHLORIDE 0.9% 1,000 ML IV SCH ×2 (08:22→17:12)
[2018-02-23] MEDS ORDERED: PROCHLORPERAZINE 10 MG TAB PO PRN (10:44)
--- NOTE | 2018-02-23 10:48 | P.PN ---
Subjective Progress Note Date: 02/23/18 This is a 82-year-old patient of Dr. Cazares. Patient presented to the emergency room with complaints of increased weakness and diarrhea. Patient states she's been on antibiotics for UTI over the past 2 weeks. Patient has had increased diarrhea for the past week. Patient was positive for C. diff on admit. Patient does complain of some abdominal discomfort with bowel movements. Patient denies any nausea or vomiting. She does have a low-grade temperature 99.5. Patient does have a past medical history for skin cancer, CVA 10 years ago, hyperlipidemia, hypertension, osteoarthritis, hypothyroidism, appendectomy , bladder surgery, Colace, hysterectomy and bipolar. White blood cell also elevated at 15.5. Urine culture ordered this time patient denies any chest pain or shortness breath. Patient denies nausea vomiting or diarrhea. Patient denies any urinary burning or frequency. 02/21/2018 patient still having diarrhea. She is on oral vancomycin for C. diff colitis. Reports improvement in her abdominal pain. Denies any chest pain shortness breath. Denies any nausea or vomiting. Denies any burning with urination. 02/22/2018 patient lying in bed comfortably. Reports abdominal pain improving. Per nursing 8 stools total yesterday. There is only one stool this morning. Stool becoming slightly more formed. Patient had urinary retention required a Vanegas catheter to be inserted. Urinalysis with culture ordered because urine is very cloudy and concentrated. Patient has poor appetite still having multiple stools. We'll continue IV fluids normal saline at 50 mL an hour On 02/23/2018 patient is alert and oriented 3 she is still complaining of multiple episodes of diarrhea she is complaining of nausea and abdominal cramping, otherwise she denies any complaints there is no fever or chills no headache or dizziness no chest pain no shortness of breath no cough no vomiting , patient had urinary retention and she has a Vanegas catheter in at this time urology are following. Objective - Vital Signs Vital signs: Vital Signs Temp 97.6 F 02/23/18 07:00 Pulse 60 02/23/18 07:00 Resp 16 02/23/18 07:00 BP 139/66 02/23/18 07:00 Pulse Ox 95 02/23/18 07:00 Intake & Output 02/22/18 02/23/18 02/23/18 18:59 06:59 18:59 Intake Total 250 Output Total 275 1250 Balance -275 -1250 250 Weight 74.843 kg 74.843 kg Intake: Oral 250 Output: Urine 275 1250 Other: Voiding Method Incontinent Indwelling Catheter Indwelling Catheter # Voids 3 # Bowel Movements 2 - Exam Head normocephalic and atraumatic Neck supple no JVD Lungs clear to auscultation bilaterally no wheezing or crackles Heart regular rate and rhythm S1-S2, no rub or gallop Abdomen is soft nondistended diffuse tenderness positive bowel sounds Extremities no edema no cyanosis or clubbing Neuro alert and orientated to 3 - Labs CBC & Chem 7: 02/22/18 07:48 02/23/18 07:40 Labs: Abnormal Lab Results - Last 24 Hours (Table) 02/22/18 02/23/18 Range/Units 13:10 07:40 Chloride 114 H (98-107) mmol/L BUN 6 L (7-17) mg/dL Creatinine 0.39 L (0.52-1.04) mg/dL Calcium 8.0 L (8.4-10.2) mg/dL Total Protein 4.8 L (6.3-8.2) g/dL Albumin 2.4 L (3.5-5.0) g/dL Urine Blood Moderate H (Negative) Urine Nitrite Positive H (Negative) Ur Leukocyte Esterase Large H (Negative) Urine RBC 16 H (0-5) /hpf Urine WBC 57 H (0-5) /hpf Urine Bacteria Many H (None) /hpf Urine Mucus Many H (None) /hpf Microbiology - Last 24 Hours (Table) 02/22/18 13:10 Urine Culture - Preliminary Urine,Catheterized Assessment and Plan Plan: 1. C. diff colitis: Continue oral vancomycin. Infectious disease is following. Continue IV fluids. Agree with discontinuing the Protonix. Stool is becoming more formed 2. Recent urinary tract infection and treated with antibiotics. 3. Essential hypertension 4. Hypothyroidism 5. Bipolar. Home meds resumed 6. History of CVA 10 years prior 7. History of osteoarthritis 8. Urinary retention: Required Vanegas catheter insertion. Recheck urinalysis with culture 9. Hypokalemia resolved with supplemental 10. Severe protein calorie malnutrition continue protein drinks 11. Consult physical therapy DVT prophylaxis Lovenox.
[2018-02-23 10:49] LABS: Basophils % (A) 1 %; Eosinophils # (A) 0.3 k/uL (0-0.7); Eosinophils % (A) 6 %; HCT 35.8 % (34.0-46.0); HGB 11.7 gm/dL (11.4-16.0); Lymphocytes # (A) 1.4 k/uL (1.0-4.8); Lymphocytes % (A) 24 %; MCH 30.6 pg (25.0-35.0); MCHC 32.6 g/dL (31.0-37.0); MCV 93.9 fL (80.0-100.0); Monocytes # (A) 0.3 k/uL (0-1.0); Monocytes % (A) 5 %; Neutrophils # (A) 3.7 k/uL (1.3-7.7); Neutrophils % (A) 64 %; Platelet Count 188 k/uL (150-450); RBC 3.81 m/uL (3.80-5.40); RDW 13.4 % (11.5-15.5); WBC 5.7 k/uL (3.8-10.6)
[2018-02-23] MEDS: lamoTRIgine 100 MG TAB PO SCH (21:38)
[2018-02-23] MEDS: ATORVASTATIN 10 MG TAB PO SCH (21:38)
[2018-02-23] MEDS: CHOLECALCIFEROL 1,000 UNIT TAB PO SCH (21:40)
[2018-02-24] MEDS: VANCOMYCIN ORAL SOLUTION 250 MG/5 ML BOTTLE PO SCH ×3 (00:40→11:10)
[2018-02-24] MEDS: CHERRY FLAVOR 60 ML BOTTLE PO PRN ×2 (00:40→06:16)
--- NOTE | 2018-02-24 01:45 | PN ---
PROGRESS NOTE DATE OF SERVICE: 02/23/2018. REASON FOR FOLLOWUP: C difficile colitis. INTERVAL HISTORY: The patient is afebrile. She has been breathing comfortably. Still complaining of loose stool though abdominal pain has improved. No nausea, vomiting. No chest pain or shortness of breath or cough. EXAMINATION: Blood pressure 140/76, pulse of 80, temperature of 97.8, she is 96% on room air. General description is an elderly female, lying in bed in no distress. Respiratory system: Unlabored breathing. Clear to auscultation anteriorly. Heart S1, S2. Regular rate and rhythm. ABDOMEN: Soft, no tenderness. LABS: Hemoglobin is 9.7, white count 5.7, BUN of 6, creatinine 0.39. DIAGNOSTIC IMPRESSION AND PLAN: Patient with C difficile colitis. The patient is to continue with p.o. vancomycin 250 q.6 hours along with Questran and advised to increase her yogurt intake and I will re- evaluate the patient tomorrow. Continue supportive care. MMODL / IJN: [id number] /
[2018-02-24] MEDS: SODIUM CHLORIDE 0.9% 1,000 ML IV SCH ×2 (05:36→11:12)
[2018-02-24] MEDS: LEVOTHYROXINE 50 MCG TAB PO SCH (06:18)
[2018-02-24 07:30] LABS: Basophils % (A) 0 %; Eosinophils # (A) 0.3 k/uL (0-0.7); Eosinophils % (A) 6 %; HCT 36.4 % (34.0-46.0); HGB 12.5 gm/dL (11.4-16.0); Lymphocytes # (A) 1.8 k/uL (1.0-4.8); Lymphocytes % (A) 35 %; MCH 31.4 pg (25.0-35.0); MCHC 34.3 g/dL (31.0-37.0); MCV 91.3 fL (80.0-100.0); Mean Platelet Volume 7.1; Monocytes # (A) 0.3 k/uL (0-1.0); Monocytes % (A) 6 %; Neutrophils # (A) 2.6 k/uL (1.3-7.7); Neutrophils % (A) 52 %; Platelet Count 206 k/uL (150-450); RBC 3.99 m/uL (3.80-5.40); RDW 13.3 % (11.5-15.5)
[2018-02-24 07:33] LABS: ALT 32 U/L (9-52); AST 24 U/L (14-36); Albumin 2.6 g/dL (3.5-5.0); Alkaline Phosphatase 63 U/L (38-126); Anion Gap 6 mmol/L; Blood Urea Nitrogen 4 mg/dL (7-17); Calcium 8.1 mg/dL (8.4-10.2); Carbon Dioxide 23 mmol/L (22-30); Chloride 111 mmol/L (98-107); Glucose 85 mg/dL (74-99); Potassium 3.2 mmol/L (3.5-5.1); Sodium 140 mmol/L (137-145); Total Bilirubin 0.2 mg/dL (0.2-1.3); Total Protein 4.9 g/dL (6.3-8.2)
[2018-02-24] MEDS: ENOXAPARIN 40 MG/0.4 ML SYRINGE SQ SCH (08:01)
[2018-02-24] MEDS: POTASSIUM CHLORIDE ER 20 MEQ TAB.ER PO SCH ×3 (08:01→12:58)
[2018-02-24] MEDS: METOPROLOL SUCCINATE (ER) 25 MG TAB.ER.24H PO SCH (08:01)
[2018-02-24] MEDS: ESCITALOPRAM 20 MG TAB PO SCH (08:01)
[2018-02-24] MEDS: FAMOTIDINE 20 MG TAB PO SCH (08:01)
[2018-02-24] MEDS: ASPIRIN 81 MG PO SCH (08:01)
[2018-02-24] MEDS: LACTOBACILLUS ACIDOPH & BULGAR 1 EACH PACKET PO SCH ×2 (08:01→23:21)
[2018-02-24] MEDS: LORazepam 0.5 MG TAB PO SCH ×2 (08:02→23:21)
[2018-02-24] MEDS: CHOLESTYRAMINE (WITH SUGAR) 4 GM PACKET PO SCH ×2 (09:42→17:39)
--- NOTE | 2018-02-24 11:11 | P.PN ---
Subjective Progress Note Date: 02/24/18 This is a 82-year-old patient of Dr. Cazares. Patient presented to the emergency room with complaints of increased weakness and diarrhea. Patient states she's been on antibiotics for UTI over the past 2 weeks. Patient has had increased diarrhea for the past week. Patient was positive for C. diff on admit. Patient does complain of some abdominal discomfort with bowel movements. Patient denies any nausea or vomiting. She does have a low-grade temperature 99.5. Patient does have a past medical history for skin cancer, CVA 10 years ago, hyperlipidemia, hypertension, osteoarthritis, hypothyroidism, appendectomy , bladder surgery, Colace, hysterectomy and bipolar. White blood cell also elevated at 15.5. Urine culture ordered this time patient denies any chest pain or shortness breath. Patient denies nausea vomiting or diarrhea. Patient denies any urinary burning or frequency. 02/21/2018 patient still having diarrhea. She is on oral vancomycin for C. diff colitis. Reports improvement in her abdominal pain. Denies any chest pain shortness breath. Denies any nausea or vomiting. Denies any burning with urination. 02/22/2018 patient lying in bed comfortably. Reports abdominal pain improving. Per nursing 8 stools total yesterday. There is only one stool this morning. Stool becoming slightly more formed. Patient had urinary retention required a Vanegas catheter to be inserted. Urinalysis with culture ordered because urine is very cloudy and concentrated. Patient has poor appetite still having multiple stools. We'll continue IV fluids normal saline at 50 mL an hour On 02/23/2018 patient is alert and oriented 3 she is still complaining of multiple episodes of diarrhea she is complaining of nausea and abdominal cramping, otherwise she denies any complaints there is no fever or chills no headache or dizziness no chest pain no shortness of breath no cough no vomiting , patient had urinary retention and she has a Vanegas catheter in at this time urology are following. On 02/24/2018 patient is still complaining of severe diarrhea, she is complaining of nausea otherwise no complaints there is no fever or chills no headache or dizziness no chest pain no shortness of breath no cough no abdominal pain no vomiting no burning with urination no frequency or urgency and no hematuria, patient has Vanegas catheter. Objective - Vital Signs Vital signs: Vital Signs Temp 98.0 F 02/24/18 07:00 Pulse 54 L 02/24/18 07:00 Resp 18 02/24/18 07:00 BP 147/78 02/24/18 07:00 Pulse Ox 94 L 02/24/18 07:00 Intake & Output 02/23/18 02/24/18 02/24/18 18:59 06:59 18:59 Intake Total 500 800 Output Total 2050 1000 100 Balance -1550 -200 -100 Weight 74.843 kg Intake: Intake, IV Titration 800 Amount Sodium Chloride 0.9% 1, 800 000 ml @ 100 mls/hr IV . Q10H ANDRADE Rx#:[id number] Oral 500 Output: Urine 2049 1000 100 Other: Voiding Method Indwelling Catheter Indwelling Catheter Indwelling Catheter # Voids 3 # Bowel Movements 2 0 - Exam Head normocephalic and atraumatic Neck supple no JVD Lungs clear to auscultation bilaterally no wheezing or crackles Heart regular rate and rhythm S1-S2, no rub or gallop Abdomen is soft nondistended diffuse tenderness positive bowel sounds Extremities no edema no cyanosis or clubbing Neuro alert and orientated to 3 - Labs CBC & Chem 7: 02/24/18 06:48 02/24/18 06:48 Labs: Abnormal Lab Results - Last 24 Hours (Table) 02/24/18 Range/Units 06:48 Potassium 3.2 L (3.5-5.1) mmol/L Chloride 111 H (98-107) mmol/L BUN 4 L (7-17) mg/dL Creatinine 0.38 L (0.52-1.04) mg/dL Calcium 8.1 L (8.4-10.2) mg/dL Total Protein 4.9 L (6.3-8.2) g/dL Albumin 2.6 L (3.5-5.0) g/dL Microbiology - Last 24 Hours (Table) 02/22/18 13:10 Urine Culture - Preliminary Urine,Catheterized Gram Neg Bacilli Gram Neg Bacilli#2 Assessment and Plan Plan: 1. C. diff colitis: Continue oral vancomycin. Infectious disease is following. Continue IV fluids. Agree with discontinuing the Protonix. Stool is becoming more formed 2. Recent urinary tract infection and treated with antibiotics. 3. Essential hypertension 4. Hypothyroidism 5. Bipolar. Home meds resumed 6. History of CVA 10 years prior 7. History of osteoarthritis 8. Urinary retention: Required Vanegas catheter insertion. Recheck urinalysis with culture 9. Hypokalemia resolved with supplemental 10. Severe protein calorie malnutrition continue protein drinks 11. Consult physical therapy DVT prophylaxis Lovenox.
[2018-02-24] MEDS ORDERED: Potassium Replacement Protocol 1 EACH MISC MISCELLANE PRN (11:25)
[2018-02-24] MEDS: FIDAXOMICIN 200 MG TABLET PO SCH ×2 (16:12→23:21)
[2018-02-24] MEDS: ATORVASTATIN 10 MG TAB PO SCH (23:21)
[2018-02-24] MEDS: CHOLECALCIFEROL 1,000 UNIT TAB PO SCH (23:21)
[2018-02-24] MEDS: lamoTRIgine 100 MG TAB PO SCH (23:21)
--- NOTE | 2018-02-24 23:33 | PN ---
PROGRESS NOTE DATE OF SERVICE: 02/24/2018. REASON FOR FOLLOWUP: C difficile colitis. INTERVAL HISTORY: The patient is afebrile. The patient currently complains of diarrhea with loose stool and did not have any response to the initial therapy. The patient denies any abdominal pain. No nausea, no vomiting. No chest pain, shortness of breath or cough. EXAMINATION: Blood pressure is 156/83, pulse of 51, temperature is 97.5. She is 98% on room air. General description is an elderly female, lying in bed in no distress. Respiratory system: Unlabored breathing. Clear to auscultation anteriorly. Heart S1, S2. Regular rate and rhythm. Abdomen soft, no tenderness. LABS: Hemoglobin 12.3, white count normalized to 5.0, BUN of 4, creatinine 0.38. DIAGNOSTIC IMPRESSION AND PLAN: Patient admitted to the hospital with significant diarrhea. Did have elevated white count. The patient white count has normalized. However, the patient continued to have loose stools. At this time, we will discontinue the vancomycin. Start the patient on Dificid 2 mg p.o. twice a day, advised to continue with Procrit and probiotic intake. We will reevaluate the patient tomorrow. Continue supportive care. MMODL / IJN: [id number] /
[2018-02-25] MEDS: SODIUM CHLORIDE 0.9% 1,000 ML IV SCH ×2 (02:04→13:10)
[2018-02-25] MEDS: LEVOTHYROXINE 50 MCG TAB PO SCH (06:22)
[2018-02-25] MEDS: ASPIRIN 81 MG PO SCH (08:27)
[2018-02-25] MEDS: METOPROLOL SUCCINATE (ER) 25 MG TAB.ER.24H PO SCH (08:27)
[2018-02-25] MEDS: ENOXAPARIN 40 MG/0.4 ML SYRINGE SQ SCH (08:27)
[2018-02-25] MEDS: POTASSIUM CHLORIDE ER 20 MEQ TAB.ER PO SCH (08:27)
[2018-02-25] MEDS: ESCITALOPRAM 20 MG TAB PO SCH (08:27)
[2018-02-25] MEDS: CHOLESTYRAMINE (WITH SUGAR) 4 GM PACKET PO SCH ×2 (08:27→17:50)
[2018-02-25] MEDS: FAMOTIDINE 20 MG TAB PO SCH (08:27)
[2018-02-25] MEDS: LACTOBACILLUS ACIDOPH & BULGAR 1 EACH PACKET PO SCH ×2 (08:27→21:15)
[2018-02-25] MEDS: FIDAXOMICIN 200 MG TABLET PO SCH ×2 (08:28→21:17)
[2018-02-25] MEDS: LORazepam 0.5 MG TAB PO SCH ×2 (08:34→21:15)
[2018-02-25 11:44] LABS: Basophils % (A) 1 %; Eosinophils # (A) 0.3 k/uL (0-0.7); Eosinophils % (A) 6 %; HCT 39.7 % (34.0-46.0); HGB 13.2 gm/dL (11.4-16.0); Lymphocytes # (A) 1.8 k/uL (1.0-4.8); Lymphocytes % (A) 31 %; MCH 30.2 pg (25.0-35.0); MCHC 33.2 g/dL (31.0-37.0); MCV 91.2 fL (80.0-100.0); Mean Platelet Volume 6.9; Monocytes # (A) 0.2 k/uL (0-1.0); Monocytes % (A) 4 %; Neutrophils # (A) 3.4 k/uL (1.3-7.7); Neutrophils % (A) 58 %; Platelet Count 282 k/uL (150-450); RBC 4.35 m/uL (3.80-5.40); RDW 13.6 % (11.5-15.5)
[2018-02-25 11:51] LABS: ALT 59 U/L (9-52); AST 53 U/L (14-36); Albumin 3.2 g/dL (3.5-5.0); Alkaline Phosphatase 82 U/L (38-126); Anion Gap 6 mmol/L; Blood Urea Nitrogen 7 mg/dL (7-17); Calcium 9.1 mg/dL (8.4-10.2); Carbon Dioxide 26 mmol/L (22-30); Chloride 106 mmol/L (98-107); Glucose 160 mg/dL (74-99); Potassium 3.7 mmol/L (3.5-5.1); Sodium 138 mmol/L (137-145); Total Bilirubin 0.3 mg/dL (0.2-1.3); Total Protein 5.7 g/dL (6.3-8.2)
--- NOTE | 2018-02-25 12:13 | P.PN ---
Subjective Progress Note Date: 02/26/18 This is a 82-year-old patient of Dr. Cazares. Patient presented to the emergency room with complaints of increased weakness and diarrhea. Patient states she's been on antibiotics for UTI over the past 2 weeks. Patient has had increased diarrhea for the past week. Patient was positive for C. diff on admit. Patient does complain of some abdominal discomfort with bowel movements. Patient denies any nausea or vomiting. She does have a low-grade temperature 99.5. Patient does have a past medical history for skin cancer, CVA 10 years ago, hyperlipidemia, hypertension, osteoarthritis, hypothyroidism, appendectomy , bladder surgery, Colace, hysterectomy and bipolar. White blood cell also elevated at 15.5. Urine culture ordered this time patient denies any chest pain or shortness breath. Patient denies nausea vomiting or diarrhea. Patient denies any urinary burning or frequency. 02/21/2018 patient still having diarrhea. She is on oral vancomycin for C. diff colitis. Reports improvement in her abdominal pain. Denies any chest pain shortness breath. Denies any nausea or vomiting. Denies any burning with urination. 02/22/2018 patient lying in bed comfortably. Reports abdominal pain improving. Per nursing 8 stools total yesterday. There is only one stool this morning. Stool becoming slightly more formed. Patient had urinary retention required a Vanegas catheter to be inserted. Urinalysis with culture ordered because urine is very cloudy and concentrated. Patient has poor appetite still having multiple stools. We'll continue IV fluids normal saline at 50 mL an hour On 02/23/2018 patient is alert and oriented 3 she is still complaining of multiple episodes of diarrhea she is complaining of nausea and abdominal cramping, otherwise she denies any complaints there is no fever or chills no headache or dizziness no chest pain no shortness of breath no cough no vomiting , patient had urinary retention and she has a Vanegas catheter in at this time urology are following. On 02/24/2018 patient is still complaining of severe diarrhea, she is complaining of nausea otherwise no complaints there is no fever or chills no headache or dizziness no chest pain no shortness of breath no cough no abdominal pain no vomiting no burning with urination no frequency or urgency and no hematuria, patient has Vanegas catheter. 02/25/2018 patient seen by infectious disease due to patient still having diarrhea oral vancomycin discontinued and patient started on deficit 2 mg twice a day. Patient reports she is still having diarrhea. She also reports some abdominal discomfort. Denies any nausea or vomiting. Denies any chest pain or shortness of breath. Denies any burning with urination. Urine culture growing Citrobacter and Klebsiella pneumoniae discussed with infectious disease. No antibiotics needed patient does not have UTI she is asymptomatic Objective - Vital Signs Vital signs: Vital Signs Temp 98.2 F 02/25/18 06:41 Pulse 63 02/25/18 06:41 Resp 16 02/25/18 08:00 BP 185/83 02/25/18 06:41 Pulse Ox 92 L 02/25/18 06:41 Intake & Output 02/24/18 02/25/18 02/25/18 18:59 06:59 18:59 Output Total 1400 1950 Balance -1400 -1950 Output: Urine 1400 1950 Other: Voiding Method Indwelling Catheter Indwelling Catheter Indwelling Catheter # Bowel Movements 2 1 - Exam Head normocephalic Neck supple Lungs clear to auscultation bilaterally no wheezing or crackles Heart regular rate and rhythm S1-S2, no rub or gallop Abdomen is soft nondistended diffuse tenderness positive bowel sounds Extremities no edema Neuro alert and orientated to 3 - Labs CBC & Chem 7: 02/25/18 11:09 02/25/18 11:09 Labs: Microbiology - Last 24 Hours (Table) 02/22/18 13:10 Urine Culture - Final Urine,Catheterized Citrobacter braakii Klebsiella pneumoniae Assessment and Plan Assessment: 1. C. diff colitis: Infectious diseases discontinued oral vancomycin yesterday. Patient started on Dificid. Questran and probiotics also added. Continue to monitor 2. Recent urinary tract infection and treated with antibiotics. 3. Essential hypertension 4. Hypothyroidism 5. Bipolar. Home meds resumed 6. History of CVA 10 years prior 7. History of osteoarthritis 8. Urinary retention: Required Vanegas catheter insertion. Evaluated by urology 9. Hypokalemia resolved with supplemental 10. Severe protein calorie malnutrition continue protein drinks 11. Consult physical therapy DVT prophylaxis Lovenox. I performed an examination of the patient and discussed their management with the physician Home Coordinator. I have reviewed the Physician Home Coordinator's notes and agree with the documented findings and plan of care
[2018-02-25] MEDS: CHOLECALCIFEROL 1,000 UNIT TAB PO SCH (21:14)
[2018-02-25] MEDS: lamoTRIgine 100 MG TAB PO SCH (21:14)
[2018-02-25] MEDS: ATORVASTATIN 10 MG TAB PO SCH (21:14)
[2018-02-26] MEDS: LEVOTHYROXINE 50 MCG TAB PO SCH (06:43)
--- NOTE | 2018-02-26 06:59 | PN ---
PROGRESS NOTE DATE OF SERVICE: 02/25/2018. REASON FOR FOLLOWUP: C difficile colitis. INTERVAL HISTORY: The patient is afebrile. She is breathing comfortably. Denies having any chest pain or shortness of breath or cough. She did still have some diarrhea. Slightly decreased in frequency. No nausea, no vomiting. Oral intake seems to be poor. PHYSICAL EXAMINATION: Blood pressure 149/72 with a pulse of 57, temperature 98.1. She is 92% on room air. General description is an elderly female up in the chair in no distress. Respiratory system: Unlabored breathing. Clear to auscultation anteriorly. Heart S1, S2. Regular rate and rhythm. Abdomen soft, no tenderness. LABS: Hemoglobin 13.2, white count 6.0, BUN of 7, creatinine 0.47. DIAGNOSTIC IMPRESSION AND PLAN: 1. Patient with C. dif colitis. She was switched over to daptomycin because of response to . Oral vancomycin with response to the same. She is to continue Questran for symptomatic relief. 2. The patient with a positive urine culture, more likely contamination no need for systemic antibiotic therapy for the same. Plan of care discussed with the nurse practitioner for the primary team. MMODL / IJN: [id number] /
[2018-02-26] MEDS: ASPIRIN 81 MG PO SCH (10:13)
[2018-02-26] MEDS: FAMOTIDINE 20 MG TAB PO SCH (10:13)
[2018-02-26] MEDS: LORazepam 0.5 MG TAB PO SCH ×2 (10:13→21:04)
[2018-02-26] MEDS: LACTOBACILLUS ACIDOPH & BULGAR 1 EACH PACKET PO SCH ×2 (10:13→21:03)
[2018-02-26] MEDS: METOPROLOL SUCCINATE (ER) 25 MG TAB.ER.24H PO SCH (10:13)
[2018-02-26] MEDS: ESCITALOPRAM 20 MG TAB PO SCH (10:14)
[2018-02-26] MEDS: FIDAXOMICIN 200 MG TABLET PO SCH ×2 (10:14→21:02)
[2018-02-26] MEDS: POTASSIUM CHLORIDE ER 20 MEQ TAB.ER PO SCH (10:14)
[2018-02-26] MEDS: ENOXAPARIN 40 MG/0.4 ML SYRINGE SQ SCH (10:14)
[2018-02-26] MEDS: CHOLESTYRAMINE (WITH SUGAR) 4 GM PACKET PO SCH ×2 (10:15→18:02)
[2018-02-26] MEDS: ATORVASTATIN 10 MG TAB PO SCH (21:03)
[2018-02-26] MEDS: lamoTRIgine 100 MG TAB PO SCH (21:03)
[2018-02-26] MEDS: CHOLECALCIFEROL 1,000 UNIT TAB PO SCH (21:22)
--- NOTE | 2018-02-26 22:00 | P.PN ---
Subjective Progress Note Date: 02/26/18 Principal diagnosis: C. difficile colitis, recurrent urinary tract infection, hypertension hypertensive cardiovascular disease, hypothyroidism, bipolar disorder, history of CVA 10 years ago, degenerative joint disease osteoarthritis, hypokalemia, generalized weakness and medical debility, severe degree of protein calorie malnourishment, 02/26/2018, patient seen eval examined during rounds clinically patient is doing better the severity of his stools slightly improved but still of loose stool, patient does complain of generalized weakness she is being evaluated for physical therapy, patient feels that she is not ready to go home, infectious disease services following this patient, vancomycin has been substituted with a deficit Patient presented to the emergency room with complaints of increased weakness and diarrhea. Patient states she's been on antibiotics for UTI over the past 2 weeks. Patient has had increased diarrhea for the past week. Patient was positive for C. diff on admit. Patient does complain of some abdominal discomfort with bowel movements. Patient denies any nausea or vomiting. She does have a low-grade temperature 99.5. Patient does have a past medical history for skin cancer, CVA 10 years ago, hyperlipidemia, hypertension, osteoarthritis, hypothyroidism, appendectomy, bladder surgery, Colace, hysterectomy and bipolar. White blood cell also elevated at 15.5. Urine culture ordered this time patient denies any chest pain or shortness breath. Patient denies nausea vomiting or diarrhea. Patient denies any urinary burning or frequency. Objective - Vital Signs Vital signs: Vital Signs Temp 97.4 F L 02/26/18 14:35 Pulse 58 L 02/26/18 14:35 Resp 18 02/26/18 14:35 BP 127/81 02/26/18 14:35 Pulse Ox 94 L 02/26/18 14:35 Intake & Output 02/26/18 02/26/18 02/27/18 06:59 18:59 06:59 Intake Total 300 Output Total 601 250 Balance -301 -250 Intake: Oral 300 Output: Urine 600 250 Urine/Stool Mix 1 Other: Voiding Method Indwelling Catheter Indwelling Catheter # Voids 1 0 # Bowel Movements 1 2 0 - Constitutional General appearance: Present: cooperative, disheveled, mild distress, obese - EENT Eyes: Present: anicteric sclerae, EOMI, poor dentition, normal appearance Ears: bilateral: normal - Neck Neck: Present: normal ROM Carotids: bilateral: upstroke normal, bruit absent Thyroid: bilateral: normal size - Respiratory Respiratory: bilateral: CTA, negative: diminished, dullness, rales, rhonchi, wheezing - Cardiovascular Rhythm: regular Heart sounds: normal: S1, S2 - Gastrointestinal General gastrointestinal: Present: decreased bowel sounds, distended, soft, tenderness - Integumentary Integumentary: Present: normal turgor - Neurologic Neurologic: Present: CNII-XII intact - Musculoskeletal Musculoskeletal: Present: gait normal, generalized weakness, strength equal bilaterally - Psychiatric Psychiatric: Present: A&O x's 3, appropriate affect, intact judgment & insight - Labs CBC & Chem 7: 02/25/18 11:09 02/25/18 11:09 Assessment and Plan Assessment: 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 rehydration Continue aggressively treat C. difficile colitis Continue home medications including for hypothyroidism as well as dyslipidemia and hypertension Maintain patient on DVT prophylaxis Further recommendations pending plan of care as per clinical response of the patient Time with Patient: Greater than 30
[2018-02-27] MEDS: LEVOTHYROXINE 50 MCG TAB PO SCH (06:32)
--- NOTE | 2018-02-27 07:37 | PN ---
PROGRESS NOTE DATE OF SERVICE: 02/26/2018 REASON FOR FOLLOWUP: C. diff colitis. INTERVAL HISTORY: The patient is currently afebrile. She is feeling better. Breathing comfortably. The patient diarrhea has decreased, did have only 1 episode today. No nausea, no vomiting. PHYSICAL EXAMINATION: Blood pressure 127/80 with a pulse of 80, temperature 97.4, she is 94% on room air. General description is an elderly female, lying in bed in no distress. RESPIRATORY SYSTEM: Unlabored breathing, clear to auscultation anteriorly. HEART: S1, S2. Regular rate and rhythm. ABDOMEN: Soft, no tenderness. EXTREMITIES: No edema of the feet. LABS: Hemoglobin is 13.8, white count of 6.0, BUN of 7, creatinine 0.47. DIAGNOSTIC IMPRESSION AND PLAN: Patient with Clostridium difficile colitis, did not respond with the oral vanco. She is doing currently well on the oral Dificid which the patient need for another 8 days to finish a course of therapy. Patient had multiple questions regarding her care. Those were answered. Once oral Dificid is arranged for her, she will be able to go home from ID standpoint. MMODL / IJN: [id number] /
[2018-02-27] MEDS: METOPROLOL SUCCINATE (ER) 25 MG TAB.ER.24H PO SCH (08:22)
[2018-02-27] MEDS: POTASSIUM CHLORIDE ER 20 MEQ TAB.ER PO SCH (08:22)
[2018-02-27] MEDS: LACTOBACILLUS ACIDOPH & BULGAR 1 EACH PACKET PO SCH ×2 (08:22→21:54)
[2018-02-27] MEDS: ESCITALOPRAM 20 MG TAB PO SCH (08:22)
[2018-02-27] MEDS: FAMOTIDINE 20 MG TAB PO SCH (08:23)
[2018-02-27] MEDS: LORazepam 0.5 MG TAB PO SCH ×2 (08:23→21:54)
[2018-02-27] MEDS: FIDAXOMICIN 200 MG TABLET PO SCH ×2 (08:23→21:58)
[2018-02-27] MEDS: ENOXAPARIN 40 MG/0.4 ML SYRINGE SQ SCH (08:23)
[2018-02-27] MEDS: ASPIRIN 81 MG PO SCH (08:23)
[2018-02-27] MEDS: CHOLESTYRAMINE (WITH SUGAR) 4 GM PACKET PO SCH ×2 (09:08→17:22)
--- NOTE | 2018-02-27 14:10 | P.DS ---
Providers Date of admission: 02/20/18 12:08 Expected date of discharge: 02/27/18 Attending physician: Jewels Musa Consults: 02/20/18 15:00 Consult Physician Routine Consulting Provider: Mami Whyte Consult Reason/Comments: cdiff Do you want consulting provider notified?: Yes 02/22/18 13:29 Consult Physician Routine Consulting Provider: Jun Good Consult Reason/Comments: urinary retention Do you want consulting provider notified?: Yes Primary care physician: [facility] Course: his is a 82-year-old patient of Dr. Cazares. Patient presented to the emergency room with complaints of increased weakness and diarrhea. Patient states she's been on antibiotics for UTI over the past 2 weeks. Patient has had increased diarrhea for the past week. Patient was positive for C. diff on admit. Patient does complain of some abdominal discomfort with bowel movements. Patient denies any nausea or vomiting. She does have a low-grade temperature 99.5. Patient does have a past medical history for skin cancer, CVA 10 years ago, hyperlipidemia, hypertension, osteoarthritis, hypothyroidism, appendectomy , bladder surgery, Colace, hysterectomy and bipolar. White blood cell also elevated at 15.5. Urine culture ordered this time patient denies any chest pain or shortness breath. Patient denies nausea vomiting or diarrhea. Patient denies any urinary burning or frequency. 02/21/2018 patient still having diarrhea. She is on oral vancomycin for C. diff colitis. Reports improvement in her abdominal pain. Denies any chest pain shortness breath. Denies any nausea or vomiting. Denies any burning with urination. 02/22/2018 patient lying in bed comfortably. Reports abdominal pain improving. Per nursing 8 stools total yesterday. There is only one stool this morning. Stool becoming slightly more formed. Patient had urinary retention required a Vanegas catheter to be inserted. Urinalysis with culture ordered because urine is very cloudy and concentrated. Patient has poor appetite still having multiple stools. We'll continue IV fluids normal saline at 50 mL an hour On 02/23/2018 patient is alert and oriented 3 she is still complaining of multiple episodes of diarrhea she is complaining of nausea and abdominal cramping, otherwise she denies any complaints there is no fever or chills no headache or dizziness no chest pain no shortness of breath no cough no vomiting , patient had urinary retention and she has a Vanegas catheter in at this time urology are following. On 02/24/2018 patient is still complaining of severe diarrhea, she is complaining of nausea otherwise no complaints there is no fever or chills no headache or dizziness no chest pain no shortness of breath no cough no abdominal pain no vomiting no burning with urination no frequency or urgency and no hematuria, patient has Vanegas catheter. 02/25/2018 patient seen by infectious disease due to patient still having diarrhea oral vancomycin discontinued and patient started on deficit 2 mg twice a day. Patient reports she is still having diarrhea. She also reports some abdominal discomfort. Denies any nausea or vomiting. Denies any chest pain or shortness of breath. Denies any burning with urination. Urine culture growing Citrobacter and Klebsiella pneumoniae discussed with infectious disease. No antibiotics needed patient does not have UTI she is asymptomatic 02/26/2018, patient seen eval examined during rounds clinically patient is doing better the severity of his stools slightly improved but still of loose stool, patient does complain of generalized weakness she is being evaluated for physical therapy, patient feels that she is not ready to go home, infectious disease services following this patient, vancomycin has been substituted with a deficit 02/27/2018, patient seen eval reexamined during the rounds clinically has been doing well awake and alert care plan discussed with the patient at length the consultation with insurance case manager has been obtained for home health care, also discussed with infectious disease services they are going to provide a prescription for the deficit for her severe C. difficile colitis patient is stable overall for discharge with the home health to follow 1. C. diff colitis: Infectious diseases discontinued oral vancomycin yesterday. Patient started on Dificid. Questran and probiotics also added. Continue to monitor 2. Recent urinary tract infection and treated with antibiotics. 3. Essential hypertension 4. Hypothyroidism 5. Bipolar. Home meds resumed 6. History of CVA 10 years prior 7. History of osteoarthritis 8. Urinary retention: Required Vanegas catheter insertion. Evaluated by urology 9. Hypokalemia resolved with supplemental 10. Severe protein calorie malnutrition continue protein drinks 11. Consult physical therapy DVT prophylaxis Lovenox. Patient Condition at Discharge: Good Plan - Discharge Summary Discharge Rx Participant: No New Discharge Prescriptions: No Action Multivitamins, Thera [Multivitamin (formulary)] 1 tab PO HS lamoTRIgine [LaMICtal] 100 mg PO HS Levothyroxine Sodium [Synthroid] 50 mcg PO DAILY LORazepam [Ativan] 0.25 mg PO BID Escitalopram [Lexapro] 20 mg PO DAILY Cholecalciferol [Vitamin D3] 1,000 unit PO HS Potassium Chloride ER [K-Dur 20] 20 meq PO DAILY Fish Oil/Dha/Epa [Fish Oil 1,200 mg Fish Oil] 1 cap PO HS Ranitidine HCl [Zantac] 150 mg PO DAILY Aspirin [[place] Aspirin EC] 81 mg PO DAILY Atorvastatin [Lipitor] 10 mg PO HS Metoprolol Succinate (ER) [Toprol XL] 25 mg PO DAILY Discharge Medication List Levothyroxine Sodium [Synthroid] 50 mcg PO DAILY 07/29/16 [History] Multivitamins, Thera [Multivitamin (formulary)] 1 tab PO HS 07/29/16 [History] lamoTRIgine [LaMICtal] 100 mg PO HS 07/29/16 [History] Escitalopram [Lexapro] 20 mg PO DAILY 01/05/17 [History] LORazepam [Ativan] 0.25 mg PO BID 01/05/17 [History] Cholecalciferol [Vitamin D3] 1,000 unit PO HS 05/08/17 [History] Fish Oil/Dha/Epa [Fish Oil 1,200 mg Fish Oil] 1 cap PO HS 05/08/17 [History] Potassium Chloride ER [K-Dur 20] 20 meq PO DAILY 05/08/17 [History] Aspirin [[place] Aspirin EC] 81 mg PO DAILY 02/13/18 [History] Ranitidine HCl [Zantac] 150 mg PO DAILY 02/13/18 [History] Atorvastatin [Lipitor] 10 mg PO HS 02/20/18 [History] Metoprolol Succinate (ER) [Toprol XL] 25 mg PO DAILY 02/20/18 [History] Fidaxomicin [Dificid] 200 mg PO BID 02/27/18 [History] Follow up Appointment(s)/Referral(s): Lydia Schwartz MD [Primary Care Provider] - 1-2 days Mami Whyte MD [STAFF PHYSICIAN] - 1 Week
--- NOTE | 2018-02-27 14:55 | PN ---
PROGRESS NOTE DATE OF SERVICE: 02/27/2018 REASON FOR FOLLOWUP: Clostridium difficile colitis. INTERVAL HISTORY: The patient is currently afebrile. She did have 4 episodes of BM yesterday; however, none since today. The patient denies having any chest pain or shortness of breath. No cough. No abdominal pain and no diarrhea. PHYSICAL EXAMINATION: Blood pressure is 157/85, pulse of 74, temperature 98, she is 93% on room air. General description is an elderly female, lying in bed in no distress. RESPIRATORY SYSTEM: Unlabored breathing, clear to auscultation anteriorly. HEART: S1, S2. Regular rate and rhythm. ABDOMEN: Soft, no tenderness. LABS: Hemoglobin is 13.2, white count of 6.0, BUN of 7, creatinine 0.47. DIAGNOSTIC IMPRESSION AND PLAN: Patient with Clostridium difficile colitis. Patient did not respond very well to the vancomycin. She did well on the oral Dificid, which should continue for another 7 days to finish a course of therapy. Continue supportive care. MMODL / IJN: [id number] /
[2018-02-27] MEDS: CHOLECALCIFEROL 1,000 UNIT TAB PO SCH (21:54)
[2018-02-27] MEDS: ATORVASTATIN 10 MG TAB PO SCH (21:54)
[2018-02-27] MEDS: lamoTRIgine 100 MG TAB PO SCH (21:55)
[2018-02-28] MEDS: LEVOTHYROXINE 50 MCG TAB PO SCH (06:44)
[2018-02-28] MEDS: METOPROLOL SUCCINATE (ER) 25 MG TAB.ER.24H PO SCH (09:29)
[2018-02-28] MEDS: ENOXAPARIN 40 MG/0.4 ML SYRINGE SQ SCH (09:29)
[2018-02-28] MEDS: CHOLESTYRAMINE (WITH SUGAR) 4 GM PACKET PO SCH ×2 (09:29→17:52)
[2018-02-28] MEDS: ASPIRIN 81 MG PO SCH (09:30)
[2018-02-28] MEDS: FAMOTIDINE 20 MG TAB PO SCH (09:30)
[2018-02-28] MEDS: LACTOBACILLUS ACIDOPH & BULGAR 1 EACH PACKET PO SCH ×2 (09:30→21:22)
[2018-02-28] MEDS: POTASSIUM CHLORIDE ER 20 MEQ TAB.ER PO SCH (09:30)
[2018-02-28] MEDS: FIDAXOMICIN 200 MG TABLET PO SCH ×2 (09:30→21:22)
[2018-02-28] MEDS: ESCITALOPRAM 20 MG TAB PO SCH (09:30)
[2018-02-28] MEDS: LORazepam 0.5 MG TAB PO SCH ×2 (09:32→21:22)
[2018-02-28] MEDS ORDERED: LORazepam 0.5 MG TAB PO STA (15:04)
--- NOTE | 2018-02-28 15:50 | PN ---
PROGRESS NOTE DATE OF SERVICE: 02/28/2018 REASON FOR FOLLOWUP: C difficile colitis. INTERVAL HISTORY: The patient is currently afebrile. She is breathing comfortably. The patient denies having any chest pain or shortness of breath or cough. No abdominal pain. Diarrhea has resolved. Did not have any bowel movement today. PHYSICAL EXAMINATION: Blood pressure 120/70 with a pulse of 73, temperature 98.1. She is 93% on room air. General description is an elderly female lying in bed in no distress. RESPIRATORY SYSTEM: Unlabored breathing. Clear to auscultation anteriorly. HEART: S1, S2. Regular rate and rhythm. ABDOMEN: Soft. No tenderness. LABS: Hemoglobin 13.2, white count 6.0, BUN of 7, creatinine 0.47. DIAGNOSTIC IMPRESSION AND PLAN: Patient with Clostridium difficile colitis that did not respond very well to the initial antibiotic of the vancomycin; however, she is doing well on the p.o. Dificid; to continue to finish a 10-day course of therapy with close outpatient followup. Continue with supportive care. MEAGAN / LEBRONN: [id number] /
--- NOTE | 2018-02-28 19:43 | P.PN ---
Subjective Progress Note Date: 02/28/18 Principal diagnosis: C. difficile colitis, recurrent urinary tract infection, hypertension hypertensive cardiovascular disease, hypothyroidism, bipolar disorder, history of CVA 10 years ago, degenerative joint disease osteoarthritis, hypokalemia, generalized weakness and medical debility, severe degree of protein calorie malnourishment, 02/27/2018, patient seen and evaluated examined had an episode of anxiety and aprehension given that the lack of availability of ECF for her related to cost of care likely, patient expresses that she do not want to go home, care plan discussed with her at length 02/26/2018, patient seen eval examined during rounds clinically patient is doing better the severity of his stools slightly improved but still of loose stool, patient does complain of generalized weakness she is being evaluated for physical therapy, patient feels that she is not ready to go home, infectious disease services following this patient, vancomycin has been substituted with a deficit Patient presented to the emergency room with complaints of increased weakness and diarrhea. Patient states she's been on antibiotics for UTI over the past 2 weeks. Patient has had increased diarrhea for the past week. Patient was positive for C. diff on admit. Patient does complain of some abdominal discomfort with bowel movements. Patient denies any nausea or vomiting. She does have a low-grade temperature 99.5. Patient does have a past medical history for skin cancer, CVA 10 years ago, hyperlipidemia, hypertension, osteoarthritis, hypothyroidism, appendectomy, bladder surgery, Colace, hysterectomy and bipolar. White blood cell also elevated at 15.5. Urine culture ordered this time patient denies any chest pain or shortness breath. Patient denies nausea vomiting or diarrhea. Patient denies any urinary burning or frequency. Objective - Vital Signs Vital signs: Vital Signs Temp 97.6 F 02/28/18 15:00 Pulse 59 L 02/28/18 15:00 Resp 16 02/28/18 16:00 BP 133/72 02/28/18 15:00 Pulse Ox 93 L 02/28/18 15:00 Intake & Output 02/28/18 02/28/18 03/01/18 06:59 18:59 06:59 Intake Total 550 200 Balance 550 200 Intake: Oral 550 200 Other: Voiding Method Indwelling Catheter # Voids 1 2 # Bowel Movements 0 1 - Exam - Constitutional General appearance: Present: cooperative, disheveled, mild distress, obese - EENT Eyes: Present: anicteric sclerae, EOMI, poor dentition, normal appearance Ears: bilateral: normal - Neck Neck: Present: normal ROM Carotids: bilateral: upstroke normal, bruit absent Thyroid: bilateral: normal size - Respiratory Respiratory: bilateral: CTA, negative: diminished, dullness, rales, rhonchi, wheezing - Cardiovascular Rhythm: regular Heart sounds: normal: S1, S2 - Gastrointestinal General gastrointestinal: Present: decreased bowel sounds, distended, soft, tenderness - Integumentary Integumentary: Present: normal turgor - Neurologic Neurologic: Present: CNII-XII intact - Musculoskeletal Musculoskeletal: Present: gait normal, generalized weakness, strength equal bilaterally - Psychiatric Psychiatric: Present: A&O x's 3, appropriate affect, intact judgment & insight - Labs CBC & Chem 7: 02/25/18 11:09 02/25/18 11:09 Assessment and Plan Assessment: 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 rehydration Continue aggressively treat C. difficile colitis Continue home medications including for hypothyroidism as well as dyslipidemia and hypertension Maintain patient on DVT prophylaxis Further recommendations pending plan of care as per clinical response of the patient Discharge to ECF or home as per coverage and availability Time with Patient: Greater than 30
[2018-02-28] MEDS: ATORVASTATIN 10 MG TAB PO SCH (21:22)
[2018-02-28] MEDS: CHOLECALCIFEROL 1,000 UNIT TAB PO SCH (21:22)
[2018-02-28] MEDS: lamoTRIgine 100 MG TAB PO SCH (21:22)
[2018-03-01] MEDS: LEVOTHYROXINE 50 MCG TAB PO SCH (06:25)
[2018-03-01] MEDS: LACTOBACILLUS ACIDOPH & BULGAR 1 EACH PACKET PO SCH ×2 (07:44→19:49)
[2018-03-01] MEDS: ENOXAPARIN 40 MG/0.4 ML SYRINGE SQ SCH (07:44)
[2018-03-01] MEDS: ESCITALOPRAM 20 MG TAB PO SCH (07:45)
[2018-03-01] MEDS: LORazepam 0.5 MG TAB PO SCH ×2 (07:45→19:48)
[2018-03-01] MEDS: ASPIRIN 81 MG PO SCH (07:45)
[2018-03-01] MEDS: POTASSIUM CHLORIDE ER 20 MEQ TAB.ER PO SCH (07:45)
[2018-03-01] MEDS: FAMOTIDINE 20 MG TAB PO SCH (07:45)
[2018-03-01] MEDS: FIDAXOMICIN 200 MG TABLET PO SCH ×2 (07:45→19:49)
[2018-03-01] MEDS: METOPROLOL SUCCINATE (ER) 25 MG TAB.ER.24H PO SCH (07:46)
[2018-03-01] MEDS: CHOLESTYRAMINE (WITH SUGAR) 4 GM PACKET PO SCH ×2 (09:26→17:27)
--- NOTE | 2018-03-01 16:27 | P.PN ---
Subjective Progress Note Date: 03/01/18 Principal diagnosis: C. difficile colitis, recurrent urinary tract infection, hypertension hypertensive cardiovascular disease, hypothyroidism, bipolar disorder, history of CVA 10 years ago, degenerative joint disease osteoarthritis, hypokalemia, generalized weakness and medical debility, severe degree of protein calorie malnourishment, 03/01/2018, patient seen eval reexamined during rounds she is relatively less anxious her severity or stool has improved though she is having more semi- formed stool severity or diarrhea is improved, labs reviewed medications reviewed care plan discussed with the patient as well as staff at length 02/28/2018, patient seen eval examined during the rounds care plan discussed with the nursing staff patient is having issues associated with cost of the the antibiotics for C. difficile were likely will be To finish the therapy, care plan discussed with infectious disease services 02/27/2018, patient seen and evaluated examined had an episode of anxiety and aprehension given that the lack of availability of ECF for her related to cost of care likely, patient expresses that she do not want to go home, care plan discussed with her at length 02/26/2018, patient seen eval examined during rounds clinically patient is doing better the severity of his stools slightly improved but still of loose stool, patient does complain of generalized weakness she is being evaluated for physical therapy, patient feels that she is not ready to go home, infectious disease services following this patient, vancomycin has been substituted with a deficit Patient presented to the emergency room with complaints of increased weakness and diarrhea. Patient states she's been on antibiotics for UTI over the past 2 weeks. Patient has had increased diarrhea for the past week. Patient was positive for C. diff on admit. Patient does complain of some abdominal discomfort with bowel movements. Patient denies any nausea or vomiting. She does have a low-grade temperature 99.5. Patient does have a past medical history for skin cancer, CVA 10 years ago, hyperlipidemia, hypertension, osteoarthritis, hypothyroidism, appendectomy, bladder surgery, Colace, hysterectomy and bipolar. White blood cell also elevated at 15.5. Urine culture ordered this time patient denies any chest pain or shortness breath. Patient denies nausea vomiting or diarrhea. Patient denies any urinary burning or frequency. Objective - Vital Signs Vital signs: Vital Signs Temp 97.1 F L 03/01/18 07:24 Pulse 55 L 12/28/18 07:24 Resp 16 03/01/18 07:24 BP 103/58 03/01/18 07:24 Pulse Ox 95 03/01/18 07:24 Intake & Output 02/28/18 03/01/18 03/01/18 18:59 06:59 18:59 Intake Total 200 Balance 200 Intake: Oral 200 Other: # Voids 2 2 1 # Bowel Movements 1 1 - Exam - Constitutional General appearance: Present: cooperative, disheveled, mild distress, obese - EENT Eyes: Present: anicteric sclerae, EOMI, poor dentition, normal appearance Ears: bilateral: normal - Neck Neck: Present: normal ROM Carotids: bilateral: upstroke normal, bruit absent Thyroid: bilateral: normal size - Respiratory Respiratory: bilateral: CTA, negative: diminished, dullness, rales, rhonchi, wheezing - Cardiovascular Rhythm: regular Heart sounds: normal: S1, S2 - Gastrointestinal General gastrointestinal: Present: decreased bowel sounds, distended, soft, tenderness - Integumentary Integumentary: Present: normal turgor - Neurologic Neurologic: Present: CNII-XII intact - Musculoskeletal Musculoskeletal: Present: gait normal, generalized weakness, strength equal bilaterally - Psychiatric Psychiatric: Present: A&O x's 3, appropriate affect, intact judgment & insight - Labs CBC & Chem 7: 02/25/18 11:09 02/25/18 11:09 Assessment and Plan Assessment: 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 rehydration Continue aggressively treat C. difficile colitis Continue home medications including for hypothyroidism as well as dyslipidemia and hypertension Maintain patient on DVT prophylaxis Further recommendations pending plan of care as per clinical response of the patient Discharge to ECF or home as per coverage and availability once therapy for C. difficile colitis is completed Time with Patient: Greater than 30
[2018-03-01] MEDS: lamoTRIgine 100 MG TAB PO SCH (19:48)
[2018-03-01] MEDS: ATORVASTATIN 10 MG TAB PO SCH (19:49)
[2018-03-01] MEDS: CHOLECALCIFEROL 1,000 UNIT TAB PO SCH (19:49)
--- NOTE | 2018-03-01 22:57 | PN ---
PROGRESS NOTE DATE OF SERVICE: 03/01/2018 REASON FOR FOLLOWUP: C difficile colitis. INTERVAL HISTORY: The patient is afebrile. She is currently waiting for placement, as no detention will take her on oral Dificid. The patient denies having any chest pain or shortness of breath or cough. No abdominal pain and no diarrhea. PHYSICAL EXAMINATION: Blood pressure 144/80 with a pulse of 62, temperature 97.6. She is 95% on room air. General description is an elderly female lying in bed in no distress. RESPIRATORY SYSTEM: Unlabored breathing. Clear to auscultation anteriorly. HEART: S1, S2. Regular rate and rhythm. ABDOMEN: Soft. No tenderness. EXTREMITIES: No edema of the feet. LABS: No new labs have been obtained today. DIAGNOSTIC IMPRESSION AND PLAN: Patient with Clostridium difficile colitis that did not respond well to oral vancomycin; however, the patient did well on the p.o. Dificid. Unfortunately no detention will take her on p.o. Dificid. She will stay on the Dificid here in the hospital over the weekend, and hopefully can be discharged on Sunday. Plan of care was discussed in detail with the home health care case manager. MMODL / IJN: [id number] /
[2018-03-02] MEDS: LEVOTHYROXINE 50 MCG TAB PO SCH (05:56)
[2018-03-02] MEDS: ESCITALOPRAM 20 MG TAB PO SCH (07:16)
[2018-03-02] MEDS: ENOXAPARIN 40 MG/0.4 ML SYRINGE SQ SCH (07:16)
[2018-03-02] MEDS: LORazepam 0.5 MG TAB PO SCH ×2 (07:16→21:56)
[2018-03-02] MEDS: FAMOTIDINE 20 MG TAB PO SCH (07:16)
[2018-03-02] MEDS: ASPIRIN 81 MG PO SCH (07:16)
[2018-03-02] MEDS: POTASSIUM CHLORIDE ER 20 MEQ TAB.ER PO SCH (07:16)
[2018-03-02] MEDS: METOPROLOL SUCCINATE (ER) 25 MG TAB.ER.24H PO SCH (07:16)
[2018-03-02] MEDS: LACTOBACILLUS ACIDOPH & BULGAR 1 EACH PACKET PO SCH ×2 (07:16→21:56)
[2018-03-02] MEDS: FIDAXOMICIN 200 MG TABLET PO SCH ×2 (07:19→21:56)
[2018-03-02] MEDS: CHOLESTYRAMINE (WITH SUGAR) 4 GM PACKET PO SCH ×2 (09:53→17:35)
--- NOTE | 2018-03-02 21:34 | P.PN ---
Subjective Progress Note Date: 03/02/18 Principal diagnosis: C. difficile colitis, recurrent urinary tract infection, hypertension hypertensive cardiovascular disease, hypothyroidism, bipolar disorder, history of CVA 10 years ago, degenerative joint disease osteoarthritis, hypokalemia, generalized weakness and medical debility, severe degree of protein calorie malnourishment, 03/02/2018, patient seen eval examined during the rounds, patient remains on therapy for C. difficile colitis 2 more days of therapy his left clinically does appear to be responding, ID service has been following 03/01/2018, patient seen eval reexamined during rounds she is relatively less anxious her severity or stool has improved though she is having more semi- formed stool severity or diarrhea is improved, labs reviewed medications reviewed care plan discussed with the patient as well as staff at length 02/28/2018, patient seen eval examined during the rounds care plan discussed with the nursing staff patient is having issues associated with cost of the the antibiotics for C. difficile were likely will be To finish the therapy, care plan discussed with infectious disease services 02/27/2018, patient seen and evaluated examined had an episode of anxiety and aprehension given that the lack of availability of ECF for her related to cost of care likely, patient expresses that she do not want to go home, care plan discussed with her at length 02/26/2018, patient seen eval examined during rounds clinically patient is doing better the severity of his stools slightly improved but still of loose stool, patient does complain of generalized weakness she is being evaluated for physical therapy, patient feels that she is not ready to go home, infectious disease services following this patient, vancomycin has been substituted with a deficit Patient presented to the emergency room with complaints of increased weakness and diarrhea. Patient states she's been on antibiotics for UTI over the past 2 weeks. Patient has had increased diarrhea for the past week. Patient was positive for C. diff on admit. Patient does complain of some abdominal discomfort with bowel movements. Patient denies any nausea or vomiting. She does have a low-grade temperature 99.5. Patient does have a past medical history for skin cancer, CVA 10 years ago, hyperlipidemia, hypertension, osteoarthritis, hypothyroidism, appendectomy, bladder surgery, Colace, hysterectomy and bipolar. White blood cell also elevated at 15.5. Urine culture ordered this time patient denies any chest pain or shortness breath. Patient denies nausea vomiting or diarrhea. Patient denies any urinary burning or frequency. Objective - Vital Signs Vital signs: Vital Signs Temp 97.3 F L 03/02/18 15:26 Pulse 60 03/02/18 15:26 Resp 18 03/02/18 15:26 BP 134/70 03/02/18 15:26 Pulse Ox 97 03/02/18 15:26 Intake & Output 03/02/18 03/02/18 03/03/18 06:59 18:59 06:59 Intake Total 600 600 Balance 600 600 Intake: Oral 600 600 Other: Voiding Method Indwelling Catheter # Voids 1 2 1 # Bowel Movements 1 2 1 - Exam - Constitutional General appearance: Present: cooperative, disheveled, mild distress, obese - EENT Eyes: Present: anicteric sclerae, EOMI, poor dentition, normal appearance Ears: bilateral: normal - Neck Neck: Present: normal ROM Carotids: bilateral: upstroke normal, bruit absent Thyroid: bilateral: normal size - Respiratory Respiratory: bilateral: CTA, negative: diminished, dullness, rales, rhonchi, wheezing - Cardiovascular Rhythm: regular Heart sounds: normal: S1, S2 - Gastrointestinal General gastrointestinal: Present: decreased bowel sounds, distended, soft, tenderness - Integumentary Integumentary: Present: normal turgor - Neurologic Neurologic: Present: CNII-XII intact - Musculoskeletal Musculoskeletal: Present: gait normal, generalized weakness, strength equal bilaterally - Psychiatric Psychiatric: Present: A&O x's 3, appropriate affect, intact judgment & insight - Labs CBC & Chem 7: 02/25/18 11:09 02/25/18 11:09 Assessment and Plan Assessment: 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 rehydration Continue aggressively treat C. difficile colitis Continue home medications including for hypothyroidism as well as dyslipidemia and hypertension Maintain patient on DVT prophylaxis Further recommendations pending plan of care as per clinical response of the patient Discharge to ECF or home as per coverage and availability once therapy for C. difficile colitis is completed Time with Patient: Greater than 30
[2018-03-02] MEDS: ATORVASTATIN 10 MG TAB PO SCH (21:56)
[2018-03-02] MEDS: lamoTRIgine 100 MG TAB PO SCH (21:56)
[2018-03-02] MEDS: CHOLECALCIFEROL 1,000 UNIT TAB PO SCH (21:56)
[2018-03-03] MEDS: LEVOTHYROXINE 50 MCG TAB PO SCH (05:43)
[2018-03-03] MEDS: LORazepam 0.5 MG TAB PO SCH ×2 (08:08→21:07)
[2018-03-03] MEDS: POTASSIUM CHLORIDE ER 20 MEQ TAB.ER PO SCH (08:08)
[2018-03-03] MEDS: ESCITALOPRAM 20 MG TAB PO SCH (08:08)
[2018-03-03] MEDS: ASPIRIN 81 MG PO SCH (08:08)
[2018-03-03] MEDS: LACTOBACILLUS ACIDOPH & BULGAR 1 EACH PACKET PO SCH ×2 (08:08→21:07)
[2018-03-03] MEDS: FAMOTIDINE 20 MG TAB PO SCH (08:08)
[2018-03-03] MEDS: ENOXAPARIN 40 MG/0.4 ML SYRINGE SQ SCH (08:08)
[2018-03-03] MEDS: METOPROLOL SUCCINATE (ER) 25 MG TAB.ER.24H PO SCH (08:08)
[2018-03-03] MEDS: FIDAXOMICIN 200 MG TABLET PO SCH ×2 (08:10→21:07)
[2018-03-03] MEDS: CHOLESTYRAMINE (WITH SUGAR) 4 GM PACKET PO SCH ×2 (10:04→17:43)
--- NOTE | 2018-03-03 18:30 | HP ---
HISTORY AND PHYSICAL DATE OF SERVICE: 02/04/2018 She continues to have some diarrhea but is doing somewhat better overall. On physical examination her respiratory rate is 18, pulse of 57, temperature 97, blood pressure 137/68, O2 saturation on room air is 95%. HEENT is unremarkable. Chest is clear. Cardiovascular system reveals an S1, S2. Abdomen is soft. There is no pedal edema white count is 6, hemoglobin 13.2. Sodium 138, potassium 3.7, chloride 106, bicarb 26, BUN 7, creatinine 0.47. IMPRESSION: Clostridium difficile colitis. Continue Dificid, IV fluids, increase her activity level. Depending on how she does further changes to her care will be made. She was counseled regarding her condition. MMODL / IJN: [id number] /
[2018-03-03] MEDS: lamoTRIgine 100 MG TAB PO SCH (21:07)
[2018-03-03] MEDS: CHOLECALCIFEROL 1,000 UNIT TAB PO SCH (21:07)
[2018-03-03] MEDS: ATORVASTATIN 10 MG TAB PO SCH (21:07)
[2018-03-03] MEDS: HEPARIN SODIUM,PORCINE 5,000 UNIT/ML 1 ML VIAL SQ SCH (21:07)
[2018-03-04] MEDS: LEVOTHYROXINE 50 MCG TAB PO SCH (05:34)
[2018-03-04] MEDS: LACTOBACILLUS ACIDOPH & BULGAR 1 EACH PACKET PO SCH ×2 (08:07→20:08)
[2018-03-04] MEDS: ESCITALOPRAM 20 MG TAB PO SCH (08:07)
[2018-03-04] MEDS: LORazepam 0.5 MG TAB PO SCH ×2 (08:07→20:09)
[2018-03-04] MEDS: POTASSIUM CHLORIDE ER 20 MEQ TAB.ER PO SCH (08:07)
[2018-03-04] MEDS: CHOLESTYRAMINE (WITH SUGAR) 4 GM PACKET PO SCH ×2 (08:08→17:39)
[2018-03-04] MEDS: FAMOTIDINE 20 MG TAB PO SCH (08:08)
[2018-03-04] MEDS: ASPIRIN 81 MG PO SCH (08:08)
[2018-03-04] MEDS: METOPROLOL SUCCINATE (ER) 25 MG TAB.ER.24H PO SCH (08:08)
[2018-03-04] MEDS: HEPARIN SODIUM,PORCINE 5,000 UNIT/ML 1 ML VIAL SQ SCH ×2 (08:08→20:08)
[2018-03-04] MEDS: FIDAXOMICIN 200 MG TABLET PO SCH ×2 (08:22→20:08)
[2018-03-04 11:28] LABS: Basophils # (A) 0.1 k/uL (0-0.2); Basophils % (A) 1 %; Eosinophils # (A) 0.2 k/uL (0-0.7); Eosinophils % (A) 3 %; HCT 42.4 % (34.0-46.0); HGB 13.7 gm/dL (11.4-16.0); Lymphocytes # (A) 2.9 k/uL (1.0-4.8); Lymphocytes % (A) 39 %; MCH 30.1 pg (25.0-35.0); MCHC 32.4 g/dL (31.0-37.0); MCV 92.9 fL (80.0-100.0); Mean Platelet Volume 6.5; Monocytes # (A) 0.3 k/uL (0-1.0); Monocytes % (A) 4 %; Neutrophils # (A) 3.6 k/uL (1.3-7.7); Neutrophils % (A) 50 %; Platelet Count 289 k/uL (150-450); RBC 4.56 m/uL (3.80-5.40); RDW 13.7 % (11.5-15.5); WBC 7.2 k/uL (3.8-10.6)
[2018-03-04 11:51] LABS: ALT 62 U/L (9-52); AST 46 U/L (14-36); Albumin 3.8 g/dL (3.5-5.0); Alkaline Phosphatase 95 U/L (38-126); Anion Gap 9 mmol/L; Blood Urea Nitrogen 21 mg/dL (7-17); Calcium 9.5 mg/dL (8.4-10.2); Carbon Dioxide 26 mmol/L (22-30); Chloride 105 mmol/L (98-107); Glucose 101 mg/dL (74-99); Potassium 4.5 mmol/L (3.5-5.1); Sodium 140 mmol/L (137-145); Total Bilirubin 0.3 mg/dL (0.2-1.3); Total Protein 6.7 g/dL (6.3-8.2)
--- NOTE | 2018-03-04 13:41 | P.DS ---
Providers Date of admission: 02/20/18 12:08 Expected date of discharge: 03/04/18 Attending physician: Jewels Musa Consults: 02/20/18 15:00 Consult Physician Routine Consulting Provider: Mami Whyte Consult Reason/Comments: cdiff Do you want consulting provider notified?: Yes 02/22/18 13:29 Consult Physician Routine Consulting Provider: Jun Good Consult Reason/Comments: urinary retention Do you want consulting provider notified?: Yes Primary care physician: [facility] Course: Discharge diagnosis 1. C. diff colitis: Infectious diseases discontinued oral vancomycin yesterday. Patient started on Dificid. Questran and probiotics also added. Continue to monitor 2. Recent urinary tract infection and treated with antibiotics. 3. Essential hypertension 4. Hypothyroidism 5. Bipolar. Home meds resumed 6. History of CVA 10 years prior 7. History of osteoarthritis 8. Urinary retention: Required Vanegas catheter insertion. Evaluated by urology. Vanegas cath removed. Patient urinating adequately 9. Hypokalemia resolved with supplemental 10. Severe protein calorie malnutrition continue protein drinks 11. Elevated LFTs likely medication induced. Discontinued Lipitor and Tylenol. Recheck LFTs in 1 week Hospital course This is a 82-year-old patient of Dr. Cazares. Patient presented to the emergency room with complaints of increased weakness and diarrhea. Patient states she's been on antibiotics for UTI over the past 2 weeks. Patient has had increased diarrhea for the past week. Patient was positive for C. diff on admit. Patient does complain of some abdominal discomfort with bowel movements. Patient denies any nausea or vomiting. She does have a low-grade temperature 99.5. Patient does have a past medical history for skin cancer, CVA 10 years ago, hyperlipidemia, hypertension, osteoarthritis, hypothyroidism, appendectomy , bladder surgery, Colace, hysterectomy and bipolar. White blood cell also elevated at 15.5. Urine culture ordered this time patient denies any chest pain or shortness breath. Patient denies nausea vomiting or diarrhea. Patient denies any urinary burning or frequency. 02/21/2018 patient still having diarrhea. She is on oral vancomycin for C. diff colitis. Reports improvement in her abdominal pain. Denies any chest pain shortness breath. Denies any nausea or vomiting. Denies any burning with urination. 02/22/2018 patient lying in bed comfortably. Reports abdominal pain improving. Per nursing 8 stools total yesterday. There is only one stool this morning. Stool becoming slightly more formed. Patient had urinary retention required a Vanegas catheter to be inserted. Urinalysis with culture ordered because urine is very cloudy and concentrated. Patient has poor appetite still having multiple stools. We'll continue IV fluids normal saline at 50 mL an hour On 02/23/2018 patient is alert and oriented 3 she is still complaining of multiple episodes of diarrhea she is complaining of nausea and abdominal cramping, otherwise she denies any complaints there is no fever or chills no headache or dizziness no chest pain no shortness of breath no cough no vomiting , patient had urinary retention and she has a Vanegas catheter in at this time urology are following. On 02/24/2018 patient is still complaining of severe diarrhea, she is complaining of nausea otherwise no complaints there is no fever or chills no headache or dizziness no chest pain no shortness of breath no cough no abdominal pain no vomiting no burning with urination no frequency or urgency and no hematuria, patient has Vanegas catheter. 02/25/2018 patient seen by infectious disease due to patient still having diarrhea oral vancomycin discontinued and patient started on dificid twice a day. Patient reports she is still having diarrhea. She also reports some abdominal discomfort. Denies any nausea or vomiting. Denies any chest pain or shortness of breath. Denies any burning with urination. Urine culture growing Citrobacter and Klebsiella pneumoniae discussed with infectious disease. No antibiotics needed patient does not have UTI she is asymptomatic Patient discharged on 02/27/2018 however discharge held because the detention did not cover the dificid medication. Patient continue to be hospice and she could receive the dificid for treatment for her C. diff colitis. Her diarrhea is showing improvement. However after my evaluation this morning patient did have another 3 loose stools. Again this is better than when she presented to the hospital. However, Dr. Musa did discuss these findings with infectious disease and infectious diseases recommending oral vancomycin 250 mg 4 times a day for an additional one week. Also will continue with the Questran and probiotics. Patient will be given a prescription for Ativan to help with her anxiety. Also noted that she did have elevated LFTs at the time of discharge. AST 46 ALT 62. Discontinued the Lipitor and Tylenol. Recommend rechecking LFTs in 1 week. Patient medically stable to be discharged to [facility] Dr. Musa will follow patient at [facility] Recheck CMP in 1 week I performed an examination of the patient and discussed their management with the physician Shake Feeder. I have reviewed the Physician Shake Feeder's notes and agree with the documented findings and plan of care Patient Condition at Discharge: Stable Plan - Discharge Summary Discharge Rx Participant: No New Discharge Prescriptions: New Cholestyramine (with Sugar) [Questran Packet] 4 gm PO BID@1000,1800 7 Days # 14 packet Famotidine [Pepcid] 20 mg PO DAILY tab Lactobacillus Acidoph & Bulgar [Lactinex] 1 each PO BID 7 Days packet LORazepam [Ativan] 0.5 mg PO TID PRN 3 Days #9 tab PRN Reason: Anxiety Vancomycin Oral Solution 250 mg PO Q6HR #28 ml Continue Multivitamins, Thera [Multivitamin (formulary)] 1 tab PO HS lamoTRIgine [LaMICtal] 100 mg PO HS Levothyroxine Sodium [Synthroid] 50 mcg PO DAILY Escitalopram [Lexapro] 20 mg PO DAILY Cholecalciferol [Vitamin D3] 1,000 unit PO HS Potassium Chloride ER [K-Dur 20] 20 meq PO DAILY Fish Oil/Dha/Epa [Fish Oil 1,200 mg Fish Oil] 1 cap PO HS Aspirin [Piute Aspirin EC] 81 mg PO DAILY Metoprolol Succinate (ER) [Toprol XL] 25 mg PO DAILY Discontinued LORazepam [Ativan] 0.25 mg PO BID Ranitidine HCl [Zantac] 150 mg PO DAILY Atorvastatin [Lipitor] 10 mg PO HS Fidaxomicin [Dificid] 200 mg PO BID Discharge Medication List Levothyroxine Sodium [Synthroid] 50 mcg PO DAILY 07/29/16 [History] Multivitamins, Thera [Multivitamin (formulary)] 1 tab PO HS 07/29/16 [History] lamoTRIgine [LaMICtal] 100 mg PO HS 07/29/16 [History] Escitalopram [Lexapro] 20 mg PO DAILY 01/05/17 [History] Cholecalciferol [Vitamin D3] 1,000 unit PO HS 05/08/17 [History] Fish Oil/Dha/Epa [Fish Oil 1,200 mg Fish Oil] 1 cap PO HS 05/08/17 [History] Potassium Chloride ER [K-Dur 20] 20 meq PO DAILY 05/08/17 [History] Aspirin [Piute Aspirin EC] 81 mg PO DAILY 02/13/18 [History] Metoprolol Succinate (ER) [Toprol XL] 25 mg PO DAILY 02/20/18 [History] Cholestyramine (with Sugar) [Questran Packet] 4 gm PO BID@1000,1800 7 Days #14 packet 03/04/18 [Rx] Famotidine [Pepcid] 20 mg PO DAILY tab 03/04/18 [Rx] LORazepam [Ativan] 0.5 mg PO TID PRN 3 Days #9 tab 03/04/18 [Rx] Lactobacillus Acidoph & Bulgar [Lactinex] 1 each PO BID 7 Days packet 03/04/18 [Rx] Vancomycin Oral Solution 250 mg PO Q6HR #28 ml 03/04/18 [Rx] Follow up Appointment(s)/Referral(s): Mami Whyte MD [STAFF PHYSICIAN] - 1 Week Lydia Schwartz MD [Primary Care Provider] - 1 Week Ambulatory/Diagnostic Orders: Comprehensive Metabolic Panel [LAB.AMB] Time Frame: 1 Week, Location: None Selected Activity/Diet/Wound Care/Special Instructions: Diet: regular Activity: as tolerated Acute to transfer to [facility]. Dr. Musa to follow at [facility] Discharge Disposition: TRANSFER TO SNF/ECF
[2018-03-04] MEDS: CHOLECALCIFEROL 1,000 UNIT TAB PO SCH (20:08)
[2018-03-04] MEDS: lamoTRIgine 100 MG TAB PO SCH (20:09)
--- NOTE | 2018-03-05 00:04 | PN ---
PROGRESS NOTE DATE OF SERVICE: 03/04/2018. REASON FOR FOLLOWUP: C difficile colitis. INTERVAL HISTORY: The patient is afebrile. The patient's diarrhea almost resolved over the weekend, however, apparently she did have 3 soft bowel movements today. The patient is supposed to be transferred to a [facility], however, the IV fluids today are continued. She is doing well, though patient is complaining of feeling weak and tired and did not have to get up and go to the bathroom. Denies having any chest pain. No abdominal pain. No nausea, no vomiting. PHYSICAL EXAMINATION: Blood pressure 147/85 with a pulse of 64 temperature 97.6, 93% on room air. GENERAL DESCRIPTION: An elderly female up in the chair in no distress. RESPIRATORY SYSTEM: Unlabored breathing. Clear to auscultation anteriorly. HEART: S1, S2. Regular rate and rhythm. ABDOMEN: Soft, no tenderness. EXTREMITIES: No edema of the feet. LABS: White count is normal. DIAGNOSTIC IMPRESSION AND PLAN: Patient with C difficile colitis, the patient received 4 days of ora vancomycin followed by almost 8 days of IV Dificid. The patient seemed to have shown clinical improvement as with a problem. May be given a short course of oral vancomycin 250 p.o. every 6 along with Questran. Increase probiotic. Close outpatient followup. Continue supportive care. MMODL / LEBRONN: [id number] /
[2018-03-05] MEDS: LEVOTHYROXINE 50 MCG TAB PO SCH (05:58)
[2018-03-05] MEDS: ASPIRIN 81 MG PO SCH (09:17)
[2018-03-05] MEDS: METOPROLOL SUCCINATE (ER) 25 MG TAB.ER.24H PO SCH (09:17)
[2018-03-05] MEDS: FAMOTIDINE 20 MG TAB PO SCH (09:17)
[2018-03-05] MEDS: LACTOBACILLUS ACIDOPH & BULGAR 1 EACH PACKET PO SCH ×2 (09:17→20:58)
[2018-03-05] MEDS: ESCITALOPRAM 20 MG TAB PO SCH (09:17)
[2018-03-05] MEDS: FIDAXOMICIN 200 MG TABLET PO SCH ×2 (09:18→20:58)
[2018-03-05] MEDS: CHOLESTYRAMINE (WITH SUGAR) 4 GM PACKET PO SCH ×2 (09:18→18:34)
[2018-03-05] MEDS: HEPARIN SODIUM,PORCINE 5,000 UNIT/ML 1 ML VIAL SQ SCH ×2 (09:18→20:58)
[2018-03-05] MEDS: LORazepam 0.5 MG TAB PO SCH ×2 (09:18→20:58)
[2018-03-05] MEDS: POTASSIUM CHLORIDE ER 20 MEQ TAB.ER PO SCH (09:18)
--- NOTE | 2018-03-05 15:14 | P.PN ---
Subjective Progress Note Date: 03/05/18 This is a 82-year-old patient of Dr. Cazares. Patient presented to the emergency room with complaints of increased weakness and diarrhea. Patient states she's been on antibiotics for UTI over the past 2 weeks. Patient has had increased diarrhea for the past week. Patient was positive for C. diff on admit. Patient does complain of some abdominal discomfort with bowel movements. Patient denies any nausea or vomiting. She does have a low-grade temperature 99.5. Patient does have a past medical history for skin cancer, CVA 10 years ago, hyperlipidemia, hypertension, osteoarthritis, hypothyroidism, appendectomy , bladder surgery, Colace, hysterectomy and bipolar. White blood cell also elevated at 15.5. Urine culture ordered this time patient denies any chest pain or shortness breath. Patient denies nausea vomiting or diarrhea. Patient denies any urinary burning or frequency. 02/21/2018 patient still having diarrhea. She is on oral vancomycin for C. diff colitis. Reports improvement in her abdominal pain. Denies any chest pain shortness breath. Denies any nausea or vomiting. Denies any burning with urination. 02/22/2018 patient lying in bed comfortably. Reports abdominal pain improving. Per nursing 8 stools total yesterday. There is only one stool this morning. Stool becoming slightly more formed. Patient had urinary retention required a Vanegas catheter to be inserted. Urinalysis with culture ordered because urine is very cloudy and concentrated. Patient has poor appetite still having multiple stools. We'll continue IV fluids normal saline at 50 mL an hour On 02/23/2018 patient is alert and oriented 3 she is still complaining of multiple episodes of diarrhea she is complaining of nausea and abdominal cramping, otherwise she denies any complaints there is no fever or chills no headache or dizziness no chest pain no shortness of breath no cough no vomiting , patient had urinary retention and she has a Vanegas catheter in at this time urology are following. On 02/24/2018 patient is still complaining of severe diarrhea, she is complaining of nausea otherwise no complaints there is no fever or chills no headache or dizziness no chest pain no shortness of breath no cough no abdominal pain no vomiting no burning with urination no frequency or urgency and no hematuria, patient has Vanegas catheter. 02/25/2018 patient seen by infectious disease due to patient still having diarrhea oral vancomycin discontinued and patient started on dificid twice a day. Patient reports she is still having diarrhea. She also reports some abdominal discomfort. Denies any nausea or vomiting. Denies any chest pain or shortness of breath. Denies any burning with urination. Urine culture growing Citrobacter and Klebsiella pneumoniae discussed with infectious disease. No antibiotics needed patient does not have UTI she is asymptomatic Patient discharged on 02/27/2018 however [facility] because [facility]. Patient continue to be hospice and she could receive the dificid for treatment for her C. diff colitis. Her diarrhea is showing improvement. However after my evaluation this morning patient did have another 3 loose stools. Again this is better than when she presented to the hospital. However, Dr. Musa did discuss these findings with infectious disease and infectious diseases recommending oral vancomycin 250 mg 4 times a day for an additional one week. Also will continue with the Questran and probiotics. Patient will be given a prescription for Ativan to help with her anxiety. Also noted that she did have elevated LFTs at the time of discharge. AST 46 ALT 62. Discontinued the Lipitor and Tylenol. Recommend rechecking LFTs in 1 week. Patient medically stable to be discharged to [facility] Recheck CMP in 1 week On 03/05/2018. Discharge to [facility] declined by insurance. Discussed with nursing staff at this time planning eventual discharge home with home healthcare when family arranges caregivers. At this time patient denies chest pain or shortness of breath. Denies nausea vomiting or diarrhea. Patient denies any urinary burning or frequency Objective - Vital Signs Vital signs: Vital Signs Temp 97.8 F 03/05/18 14:44 Pulse 64 03/05/18 14:44 Resp 16 03/05/18 14:44 BP 135/83 03/05/18 14:44 Pulse Ox 95 03/05/18 14:44 Intake & Output 03/04/18 03/05/18 03/05/18 18:59 06:59 18:59 Intake Total 600 Balance 600 Weight 74.843 kg Intake: Oral 600 Other: # Voids 3 1 2 # Bowel Movements 2 2 - Exam Head normocephalic Neck supple Lungs clear to auscultation bilaterally no wheezing or crackles Heart regular rate and rhythm S1-S2, no rub or gallop Abdomen is soft nontender nondistended positive bowel sounds no hepatosplenomegaly Extremities no edema Neuro alert and orientated to 3 - Labs CBC & Chem 7: 03/04/18 11:10 03/04/18 11:10 Assessment and Plan Assessment: 1. C. diff colitis: Infectious diseases discontinued oral vancomycin yesterday. Patient started on Dificid. Questran and probiotics also added. Continue to monitor 2. Recent urinary tract infection and treated with antibiotics. 3. Essential hypertension 4. Hypothyroidism 5. Bipolar. Home meds resumed 6. History of CVA 10 years prior 7. History of osteoarthritis 8. Urinary retention: Required Vanegas catheter insertion. Evaluated by urology. Vanegas cath removed. Patient urinating adequately 9. Hypokalemia resolved with supplemental 10. Severe protein calorie malnutrition continue protein drinks 11. Elevated LFTs likely medication induced. Discontinued Lipitor and Tylenol. Recheck LFTs in 1 week Patient denied for [facility] discharge due to insurance. Possible discharge in the next 24-48 hours home with home health care. I performed an examination of the patient and discussed their management with the Nurse Practitioner. I have reviewed the Nurse Practitioner's notes and agree with the documented findings and plan of care
[2018-03-05] MEDS: lamoTRIgine 100 MG TAB PO SCH (20:58)
[2018-03-05] MEDS: CHOLECALCIFEROL 1,000 UNIT TAB PO SCH (20:58)
--- NOTE | 2018-03-06 05:14 | PN ---
PROGRESS NOTE DATE OF SERVICE: 03/05/2018 REASON FOR FOLLOWUP: C difficile colitis. INTERVAL HISTORY: The patient is afebrile. She is breathing comfortably. The patient's diarrhea has resolved. However, her main symptom has been weakness and getting to the bathroom. Denies having any chest pain, shortness of breath or cough. No abdominal pain. PHYSICAL EXAMINATION: On examination, the patient's blood pressure 135/83, pulse of 64, temperature 97.8. She is 95% on room air. General description is an elderly female up in the chair in no distress. RESPIRATORY SYSTEM: Unlabored breathing, clear to auscultation anteriorly. HEART: S1, S2. Regular rate and rhythm. ABDOMEN: Soft, no tenderness. LABS: Hemoglobin 13.7, white count 7.2 with a BUN of 21, creatinine 0.56. DIAGNOSTIC IMPRESSION AND PLAN: Patient with Clostridium difficile colitis for which the patient has received almost days antibiotic therapy. Currently on oral Dificid day 9. She may be transitioned with course of oral vancomycin on discharge and close outpatient followup. MMODL / IJN: [id number] /
[2018-03-06] MEDS: LEVOTHYROXINE 50 MCG TAB PO SCH (06:23)
[2018-03-06 07:48] VITALS: BP 137/72; PULSE 69; RESP 16; TEMP 97.4
[2018-03-06] MEDS: LORazepam 0.5 MG TAB PO SCH (08:15)
[2018-03-06] MEDS: POTASSIUM CHLORIDE ER 20 MEQ TAB.ER PO SCH (08:15)
[2018-03-06] MEDS: ASPIRIN 81 MG PO SCH (08:15)
[2018-03-06] MEDS: ESCITALOPRAM 20 MG TAB PO SCH (08:15)
[2018-03-06] MEDS: HEPARIN SODIUM,PORCINE 5,000 UNIT/ML 1 ML VIAL SQ SCH (08:15)
[2018-03-06] MEDS: CHOLESTYRAMINE (WITH SUGAR) 4 GM PACKET PO SCH (08:15)
[2018-03-06] MEDS: FAMOTIDINE 20 MG TAB PO SCH (08:15)
[2018-03-06] MEDS: FIDAXOMICIN 200 MG TABLET PO SCH (08:15)
[2018-03-06] MEDS: LACTOBACILLUS ACIDOPH & BULGAR 1 EACH PACKET PO SCH (08:15)
[2018-03-06] MEDS: METOPROLOL SUCCINATE (ER) 25 MG TAB.ER.24H PO SCH (08:15)
--- NOTE | 2018-03-06 14:21 | P.DS ---
Providers Date of admission: 02/20/18 12:08 Expected date of discharge: 03/06/18 Attending physician: Jewels Musa Consults: 02/20/18 15:00 Consult Physician Routine Consulting Provider: Mami Whyte Consult Reason/Comments: cdiff Do you want consulting provider notified?: Yes 02/22/18 13:29 Consult Physician Routine Consulting Provider: Jun Good Consult Reason/Comments: urinary retention Do you want consulting provider notified?: Yes Primary care physician: [facility] Course: Discharge diagnosis 1. C. diff colitis: Infectious diseases discontinued oral vancomycin yesterday. Patient started on Dificid. Questran and probiotics also added. Continue to monitor. Discussed case with infectious disease. No need for any more antibiotics. Patient to be discharged with Questran when necessary and probiotics 2. Recent urinary tract infection and treated with antibiotics. 3. Essential hypertension 4. Hypothyroidism 5. Bipolar. Home meds resumed 6. History of CVA 10 years prior 7. History of osteoarthritis 8. Urinary retention: Required Vanegas catheter insertion. Evaluated by urology. Vanegas cath removed. Patient urinating adequately 9. Hypokalemia resolved with supplemental 10. Severe protein calorie malnutrition continue protein drinks 11. Elevated LFTs likely medication induced. Discontinued Lipitor and Tylenol. Recheck LFTs in 1 week Hospital course This is a 82-year-old patient of Dr. Cazares. Patient presented to the emergency room with complaints of increased weakness and diarrhea. Patient states she's been on antibiotics for UTI over the past 2 weeks. Patient has had increased diarrhea for the past week. Patient was positive for C. diff on admit. Patient does complain of some abdominal discomfort with bowel movements. Patient denies any nausea or vomiting. She does have a low-grade temperature 99.5. Patient does have a past medical history for skin cancer, CVA 10 years ago, hyperlipidemia, hypertension, osteoarthritis, hypothyroidism, appendectomy , bladder surgery, Colace, hysterectomy and bipolar. White blood cell also elevated at 15.5. Urine culture ordered this time patient denies any chest pain or shortness breath. Patient denies nausea vomiting or diarrhea. Patient denies any urinary burning or frequency. 02/21/2018 patient still having diarrhea. She is on oral vancomycin for C. diff colitis. Reports improvement in her abdominal pain. Denies any chest pain shortness breath. Denies any nausea or vomiting. Denies any burning with urination. 02/22/2018 patient lying in bed comfortably. Reports abdominal pain improving. Per nursing 8 stools total yesterday. There is only one stool this morning. Stool becoming slightly more formed. Patient had urinary retention required a Vanegas catheter to be inserted. Urinalysis with culture ordered because urine is very cloudy and concentrated. Patient has poor appetite still having multiple stools. We'll continue IV fluids normal saline at 50 mL an hour On 02/23/2018 patient is alert and oriented 3 she is still complaining of multiple episodes of diarrhea she is complaining of nausea and abdominal cramping, otherwise she denies any complaints there is no fever or chills no headache or dizziness no chest pain no shortness of breath no cough no vomiting , patient had urinary retention and she has a Vanegas catheter in at this time urology are following. On 02/24/2018 patient is still complaining of severe diarrhea, she is complaining of nausea otherwise no complaints there is no fever or chills no headache or dizziness no chest pain no shortness of breath no cough no abdominal pain no vomiting no burning with urination no frequency or urgency and no hematuria, patient has Vanegas catheter. 02/25/2018 patient seen by infectious disease due to patient still having diarrhea oral vancomycin discontinued and patient started on dificid twice a day. Patient reports she is still having diarrhea. She also reports some abdominal discomfort. Denies any nausea or vomiting. Denies any chest pain or shortness of breath. Denies any burning with urination. Urine culture growing Citrobacter and Klebsiella pneumoniae discussed with infectious disease. No antibiotics needed patient does not have UTI she is asymptomatic Patient discharged on 02/27/2018 however discharge held because the long term did not cover the dificid medication. Patient continue to be hospice and she could receive the dificid for treatment for her C. diff colitis. Her diarrhea is showing improvement. However after my evaluation this morning patient did have another 3 loose stools. Again this is better than when she presented to the hospital. However, Dr. Musa did discuss these findings with infectious disease and infectious diseases recommending oral vancomycin 250 mg 4 times a day for an additional one week. Also will continue with the Questran and probiotics. Patient will be given a prescription for Ativan to help with her anxiety. Also noted that she did have elevated LFTs at the time of discharge. AST 46 ALT 62. Discontinued the Lipitor and Tylenol. Recommend rechecking LFTs in 1 week. Patient medically stable to be discharged to [facility] Recheck CMP in 1 week On 03/05/2018. Discharge to [facility] declined by insurance. Discussed with nursing staff at this time planning eventual discharge home with home healthcare when family arranges caregivers. At this time patient denies chest pain or shortness of breath. Denies nausea vomiting or diarrhea. Patient denies any urinary burning or frequency On 03/06/2018 patient to be discharged home with home health care. Discussed case with infectious disease. No need for antibiotics. Patient denies chest pain or shortness of breath. Patient denies nausea vomiting or diarrhea. Patient denies any urinary burning or frequency. Repeat CMP to be drawn in 1 week to monitor liver function. Patient to follow-up closely with PCP and consulting providers I performed an examination of the patient and discussed their management with the Nurse Practitioner. I have reviewed the Nurse Practitioner's notes and agree with the documented findings and plan of care Patient Condition at Discharge: Stable Plan - Discharge Summary Discharge Rx Participant: No New Discharge Prescriptions: New LORazepam [Ativan] 0.5 mg PO TID PRN 3 Days #9 tab PRN Reason: Anxiety Cholestyramine (with Sugar) [Questran Packet] 4 gm PO BID@1000,1800 PRN #14 packet PRN Reason: Diarrhea Famotidine [Pepcid] 20 mg PO DAILY 30 Days #30 tab Lactobacillus Acidoph & Bulgar [Lactinex] 1 each PO BID 30 Days #60 packet Continue Multivitamins, Thera [Multivitamin (formulary)] 1 tab PO HS lamoTRIgine [LaMICtal] 100 mg PO HS Levothyroxine Sodium [Synthroid] 50 mcg PO DAILY Escitalopram [Lexapro] 20 mg PO DAILY Cholecalciferol [Vitamin D3] 1,000 unit PO HS Potassium Chloride ER [K-Dur 20] 20 meq PO DAILY Fish Oil/Dha/Epa [Fish Oil 1,200 mg Fish Oil] 1 cap PO HS Aspirin [[place] Aspirin EC] 81 mg PO DAILY Metoprolol Succinate (ER) [Toprol XL] 25 mg PO DAILY Discontinued LORazepam [Ativan] 0.25 mg PO BID Ranitidine HCl [Zantac] 150 mg PO DAILY Atorvastatin [Lipitor] 10 mg PO HS Fidaxomicin [Dificid] 200 mg PO BID Discharge Medication List Levothyroxine Sodium [Synthroid] 50 mcg PO DAILY 07/29/16 [History] Multivitamins, Thera [Multivitamin (formulary)] 1 tab PO HS 07/29/16 [History] lamoTRIgine [LaMICtal] 100 mg PO HS 07/29/16 [History] Escitalopram [Lexapro] 20 mg PO DAILY 01/05/17 [History] Cholecalciferol [Vitamin D3] 1,000 unit PO HS 05/08/17 [History] Fish Oil/Dha/Epa [Fish Oil 1,200 mg Fish Oil] 1 cap PO HS 05/08/17 [History] Potassium Chloride ER [K-Dur 20] 20 meq PO DAILY 05/08/17 [History] Aspirin [[place] Aspirin EC] 81 mg PO DAILY 02/13/18 [History] Metoprolol Succinate (ER) [Toprol XL] 25 mg PO DAILY 02/20/18 [History] LORazepam [Ativan] 0.5 mg PO TID PRN 3 Days #9 tab 03/04/18 [Rx] Cholestyramine (with Sugar) [Questran Packet] 4 gm PO BID@1000,1800 PRN #14 packet 03/06/18 [Rx] Famotidine [Pepcid] 20 mg PO DAILY 30 Days #30 tab 03/06/18 [Rx] Lactobacillus Acidoph & Bulgar [Lactinex] 1 each PO BID 30 Days #60 packet 03/06 [Rx] Follow up Appointment(s)/Referral(s): Lydia Schwartz MD [Primary Care Provider] - 1 Week Mami Whyte MD [STAFF PHYSICIAN] - 1 Week [facility] Visiting Nurse, [NON-STAFF] - Ambulatory/Diagnostic Orders: Comprehensive Metabolic Panel [LAB.AMB] Time Frame: 1 Week, Location: None Selected Activity/Diet/Wound Care/Special Instructions: Diet: regular Activity: as tolerated Patient will be discharged home with home healthcare services. CMP in 1 week Ativan prescription given to patient on discharge Discussed case with ID no need for antibiotics at this time. Discharge Disposition: HOME WITH HOME HEALTH SERVICES
--- NOTE | 2018-03-06 15:51 | PN ---
PROGRESS NOTE DATE OF SERVICE: 03/06/2018 REASON FOR FOLLOWUP: C difficile colitis. INTERVAL HISTORY: The patient is currently afebrile. She is breathing comfortably. The patient did not have any bowel movement today or yesterday. Denies having any nausea. No vomiting, no abdominal pain. Complaining of feeling weak and tired. PHYSICAL EXAMINATION: Blood pressure is 137/72 with a pulse of 69, temperature is 97.4. She is 96% on room air. General description is an elderly female up in the room in no distress. RESPIRATORY SYSTEM: Unlabored breathing. Clear to auscultation anteriorly. HEART: S1, S2. Regular rate and rhythm. ABDOMEN: Soft. No tenderness. LABS: No new labs have been obtained today. DIAGNOSTIC IMPRESSION AND PLAN: Patient with acute Clostridium difficile colitis which did not respond to initial p.o. vancomycin; however, she did well on the oral Dificid. The patient has completed almost a 10-day course of therapy. The patient's diarrhea has resolved without bowel movement yesterday or today. Recommend holding the Questran if no bowel movement for 24 hours. Advised to increase her yogurt intake. No need for any antibiotic on discharge. Plan of care was discussed with the nurse practitioner for the admitting team. MMODL / IJN: [id number] /
== END 2018-03-06 15:05 | disposition home health service (06) | DRG 371 ==
LOC: EC 09:33 → 4MS4W 12:08
PROVIDERS: ADMIT Internal Medicine; ATTEND Internal Medicine
DX: A04.72 Enterocolitis due to Clostridium difficile, not specified as recurrent (principal); E43 Unspecified severe protein-calorie malnutrition; E03.9 Hypothyroidism, unspecified; Z68.26 Body mass index [BMI] 26.0-26.9, adult; E78.5 Hyperlipidemia, unspecified; E87.6 Hypokalemia; F31.9 Bipolar disorder, unspecified; F41.9 Anxiety disorder, unspecified; I11.9 Hypertensive heart disease without heart failure; Z86.73 Personal history of transient ischemic attack (TIA), and cerebral infarction without residual deficits; Z87.440 Personal history of urinary (tract) infections; T36.95XA Adverse effect of unspecified systemic antibiotic, initial encounter; N39.41 Urge incontinence; Z79.82 Long term (current) use of aspirin; Z79.890 Hormone replacement therapy; Z79.899 Other long term (current) drug therapy; Z82.3 Family history of stroke; Z82.49 Family history of ischemic heart disease and other diseases of the circulatory system; Z85.828 Personal history of other malignant neoplasm of skin; Z86.711 Personal history of pulmonary embolism; Z90.710 Acquired absence of both cervix and uterus; Z98.42 Cataract extraction status, left eye; Z98.41 Cataract extraction status, right eye; Z96.1 Presence of intraocular lens; Z96.643 Presence of artificial hip joint, bilateral; R94.5 Abnormal results of liver function studies; T39.1X5A Adverse effect of 4-Aminophenol derivatives, initial encounter; T46.6X5A Adverse effect of antihyperlipidemic and antiarteriosclerotic drugs, initial encounter; G62.9 Polyneuropathy, unspecified; M15.9 Polyosteoarthritis, unspecified; R33.9 Retention of urine, unspecified
CPT/HCPCS: 36415; 80053; 81001; 82272; 82550; 82553; 83735; 84100; 84132; 84484; 85025; 87077; 87086; 87186; 87324; 93005; 94760; 96361; 96374; 99285

== ENCOUNTER 2018-09-13 19:37 | Emergency (ER) | payer MEDICARE ==
[2018-09-13 19:54] LABS: Glucose,Whole Blood 113 mg/dL (75-99)
--- NOTE | 2018-09-13 20:39 | ED ---
General Adult HPI - General Source: patient Mode of arrival: EMS Limitations: altered mental status <Juan CarlosCanelo D - Last Filed: 09/13/18 21:20> <Bronwyn Moon - Last Filed: 09/14/18 01:01> - General Chief complaint: Altered Mental Status Stated complaint: Altered Mental Status Time Seen by Provider: 09/13/18 20:26 - History of Present Illness Initial comments: Dictation was produced using [employer] dictation software. please excuse any grammatical, word or spelling errors. Chief Complaint: 83-year-old female presents for medical evaluation. History of Present Illness: Patient is a 83-year-old female she allegedly has baseline dementia. She is brought to the emergency department by EMS. Patient has a med alert bracelet. She pressed appointment today. Patient is unreliable historian at this time. She denies the complaints however. According to nurse who received report from EMS she has baseline history of anal 2-3. She was found to be alert and oriented 1. Patient has no significant complaints at this time. She does report that she fell on the bathroom earlier today. She does report having some right hip pain. No family is available at this time to provide collateral information. The ROS documented in this emergency department record has been reviewed and confirmed by me. Those systems with pertinent positive or negative responses have been documented in the HPI. All other systems are other negative and/or noncontributory. PHYSICAL EXAM: General Impression: Alert and oriented x3, not in acute distress HEENT: Normocephalic atraumatic, extra-ocular movements intact, pupils equal and reactive to light bilaterally, mucous membranes moist. Cardiovascular: Heart regular rate and rhythm, S1&S2 audible, no murmurs, rubs or gallops Chest: Lungs clear to auscultation bilaterally, no rhonchi, no wheeze, no rales Abdomen: Bowel sounds present, abdomen soft, non-tender, non-distended, no organomegaly Musculoskeletal: Pulses present and equal in all extremities, no peripheral edema Motor: no focal deficits noted Neurological: CN II-XII grossly intact, no focal motor or sensory deficits noted Skin: Intact with no visualized rashes Psych: Normal affect and mood ED course: 83yo female brought in by EMS after she pressed her medical alert bracelet. Signs upon arrival are within acceptable limits. Patient appears to be in no acute distress. It is unclear with patient's usual baseline mental status is. Nonetheless CT is ordered given that she did report falling. Physical examination is grossly benign. Patient denies any chest pain or shortness of breath at this time. EKG interpretation: Ventricular rate 60, normal sinus rhythm,. Interval 170, QS 1:30, QTc 469. No WI prolongation, no QTC prolongation, no ST or T-wave changes noted. EKG compared to 02/20/2018 showing new left bundle-branch block. Patient care signed out to Dr. Moon (Canelo Rangel) - Related Data Home Medications Medication Instructions Recorded Confirmed lamoTRIgine [LaMICtal] 100 mg PO HS 07/29/16 09/13/18 Escitalopram [Lexapro] 20 mg PO DAILY 01/05/17 09/13/18 Famotidine [Pepcid] 40 mg PO DAILY 09/13/18 09/13/18 LORazepam [Ativan] 1 mg PO BID 09/13/18 09/13/18 Metoprolol Succinate (ER) [Toprol 50 mg PO DAILY 09/13/18 09/13/18 Xl] Allergies Allergy/AdvReac Type Severity Reaction Status Date / Time codeine AdvReac Nausea & Verified 09/13/18 21:43 Vomiting Review of Systems ROS Other: All systems not noted in ROS Statement are negative. <Canelo Rangel - Last Filed: 09/13/18 21:20> ROS Other: All systems not noted in ROS Statement are negative. <Bronwyn Moon - Last Filed: 09/14/18 01:01> ROS Statement: Those systems with pertinent positive or pertinent negative responses have been documented in the HPI. Past Medical History Past Medical History: Cancer, CVA/TIA, Hyperlipidemia, Hypertension, Osteoarthritis (OA), Pulmonary Embolus (PE), Syncope, Thyroid Disorder Additional Past Medical History / Comment(s): Pt had recent UTI treated with antibiotics. 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 History of Any Multi-Drug Resistant Organisms: None Reported Past Surgical History: Appendectomy, Bladder Surgery, Cholecystectomy, Hysterectomy, Joint Replacement, Orthopedic Surgery Additional Past Surgical History / Comment(s): bilateral hip replacements, cataract removal bilaterally with lens implants, bladder suspension surgery with mesh-states she is having difficulty with mesh, pelvic fx surgically repaired. Additional Past Anesthesia/Blood Transfusion Reaction / Comment(s): Pt states she had N/V following spinal anesthesia because her head was lifted up too soon. Pt has not recieved a blood transfusion. Past Psychological History: Anxiety, Bipolar Smoking Status: Never smoker - Past Family History Father Family Medical History: Myocardial Infarction (ID) Mother Family Medical History: CVA/TIA, Hypertension Additional Family Medical History / Comment(s): Mother of a CVA <Canelo Rangel - Last Filed: 09/13/18 21:20> General Exam Limitations: altered mental status <Canelo Rangel - Last Filed: 09/13/18 21:20> Course Vital Signs 09/13/18 09/13/18 19:41 22:29 Temperature 98.3 F 98.2 F Pulse Rate 68 66 Respiratory 15 14 Rate Blood Pressure 168/84 146/94 O2 Sat by Pulse 97 97 Oximetry Medical Decision Making - Lab Data Result diagrams: 09/13/18 19:50 09/13/18 19:50 <Canelo Rangel - Last Filed: 09/13/18 21:20> - Lab Data Result diagrams: 09/13/18 19:50 09/13/18 19:50 <Bronwyn Moon - Last Filed: 09/14/18 01:01> - Lab Data Lab Results 09/13/18 09/13/18 09/13/18 Range/Units 19:40 19:50 19:50 WBC 8.2 (3.8-10.6) k/uL RBC 4.45 (3.80-5.40) m/uL Hgb 13.7 (11.4-16.0) gm/dL Hct 40.2 (34.0-46.0) % MCV 90.2 (80.0-100.0) fL MCH 30.7 (25.0-35.0) pg MCHC 34.0 (31.0-37.0) g/dL RDW 13.1 (11.5-15.5) % Plt Count 228 (150-450) k/uL Neutrophils % 51 % Lymphocytes % 37 % Monocytes % 5 % Eosinophils % 3 % Basophils % 1 % Neutrophils # 4.2 (1.3-7.7) k/uL Lymphocytes # 3.0 (1.0-4.8) k/uL Monocytes # 0.4 (0-1.0) k/uL Eosinophils # 0.3 (0-0.7) k/uL Basophils # 0.1 (0-0.2) k/uL Sodium 139 (137-145) mmol/L Potassium 4.4 (3.5-5.1) mmol/L Chloride 101 (98-107) mmol/L Carbon Dioxide 28 (22-30) mmol/L Anion Gap 10 mmol/L BUN 19 H (7-17) mg/dL Creatinine 0.63 (0.52-1.04) mg/dL Est GFR (CKD-EPI)AfAm >90 (>60 ml/min/1.73 sqM) Est GFR (CKD-EPI)NonAf 83 (>60 ml/min/1.73 sqM) Glucose 97 (74-99) mg/dL POC Glucose (mg/dL) 113 H (75-99) mg/dL POC Glu Director Of Collections And Archives ID Tulio, Alicia Calcium 9.8 (8.4-10.2) mg/dL Magnesium 2.2 (1.6-2.3) mg/dL Troponin I (0.000-0.034) ng/mL Urine Color Urine Appearance (Clear) Urine pH (5.0-8.0) Ur Specific [place] (1.001-1.035) Urine Protein (Negative) Urine Glucose (UA) (Negative) Urine Ketones (Negative) Urine Blood (Negative) Urine Nitrite (Negative) Urine Bilirubin (Negative) Urine Urobilinogen (<2.0) mg/dL Ur Leukocyte Esterase (Negative) Urine RBC (0-5) /hpf Urine WBC (0-5) /hpf Ur Squamous Epith Cells (0-4) /hpf Urine Bacteria (None) /hpf Urine Mucus (None) /hpf 09/13/18 09/13/18 Range/Units 19:50 23:14 WBC (3.8-10.6) k/uL RBC (3.80-5.40) m/uL Hgb (11.4-16.0) gm/dL Hct (34.0-46.0) % MCV (80.0-100.0) fL MCH (25.0-35.0) pg MCHC (31.0-37.0) g/dL RDW (11.5-15.5) % Plt Count (150-450) k/uL Neutrophils % % Lymphocytes % % Monocytes % % Eosinophils % % Basophils % % Neutrophils # (1.3-7.7) k/uL Lymphocytes # (1.0-4.8) k/uL Monocytes # (0-1.0) k/uL Eosinophils # (0-0.7) k/uL Basophils # (0-0.2) k/uL Sodium (137-145) mmol/L Potassium (3.5-5.1) mmol/L Chloride (98-107) mmol/L Carbon Dioxide (22-30) mmol/L Anion Gap mmol/L BUN (7-17) mg/dL Creatinine (0.52-1.04) mg/dL Est GFR (CKD-EPI)AfAm (>60 ml/min/1.73 sqM) Est GFR (CKD-EPI)NonAf (>60 ml/min/1.73 sqM) Glucose (74-99) mg/dL POC Glucose (mg/dL) (75-99) mg/dL POC Glu Director Of Collections And Archives ID Calcium (8.4-10.2) mg/dL Magnesium (1.6-2.3) mg/dL Troponin I <0.012 (0.000-0.034) ng/mL Urine Color Yellow Urine Appearance Clear (Clear) Urine pH 6.5 (5.0-8.0) Ur Specific [place] 1.014 (1.001-1.035) Urine Protein Negative (Negative) Urine Glucose (UA) Negative (Negative) Urine Ketones Negative (Negative) Urine Blood Small H (Negative) Urine Nitrite Negative (Negative) Urine Bilirubin Negative (Negative) Urine Urobilinogen <2.0 (<2.0) mg/dL Ur Leukocyte Esterase Trace H (Negative) Urine RBC 3 (0-5) /hpf Urine WBC 2 (0-5) /hpf Ur Squamous Epith Cells 2 (0-4) /hpf Urine Bacteria Rare H (None) /hpf Urine Mucus Rare H (None) /hpf Disposition <Bayudan,Canelo D - Last Filed: 09/13/18 21:20> Is patient prescribed a controlled substance at d/c from ED?: No <Bronwyn Moon - Last Filed: 09/14/18 01:01> Clinical Impression: Dementia Disposition: HOME SELF-CARE Condition: Stable Instructions (If sedation given, give patient instructions): Altered Mental Status (ED) Referrals: None,Stated [Primary Care Provider] - 1-2 days
[2018-09-13 20:47] LABS: Basophils # (A) 0.1 k/uL (0-0.2); Basophils % (A) 1 %; Eosinophils # (A) 0.3 k/uL (0-0.7); Eosinophils % (A) 3 %; HCT 40.2 % (34.0-46.0); HGB 13.7 gm/dL (11.4-16.0); Lymphocytes % (A) 37 %; MCH 30.7 pg (25.0-35.0); MCV 90.2 fL (80.0-100.0); Mean Platelet Volume 6.7; Monocytes # (A) 0.4 k/uL (0-1.0); Monocytes % (A) 5 %; Neutrophils # (A) 4.2 k/uL (1.3-7.7); Neutrophils % (A) 51 %; Platelet Count 228 k/uL (150-450); RBC 4.45 m/uL (3.80-5.40); RDW 13.1 % (11.5-15.5); WBC 8.2 k/uL (3.8-10.6)
[2018-09-13 20:59] LABS: African American GFR (CKD) >90 (>60 ml/min/1.73 sqM); Anion Gap 10 mmol/L; Blood Urea Nitrogen 19 mg/dL (7-17); Calcium 9.8 mg/dL (8.4-10.2); Carbon Dioxide 28 mmol/L (22-30); Chloride 101 mmol/L (98-107); Glucose 97 mg/dL (74-99); Magnesium 2.2 mg/dL (1.6-2.3); Potassium 4.4 mmol/L (3.5-5.1); Sodium 139 mmol/L (137-145)
--- NOTE | 2018-09-13 21:20 | XR ---
EXAMINATION TYPE: XR chest 1V portable DATE OF EXAM: 09/13/2018 COMPARISON: 05/15/2017 HISTORY: Right-sided pain TECHNIQUE: Single frontal view of the chest is obtained. FINDINGS: Heart and mediastinum are normal. Lungs are clear. Diaphragm is normal. Bony thorax appear s normal. There are chest leads. There is mild pleural thickening at the lung apices. IMPRESSION: No active cardiopulmonary disease. No change.
--- NOTE | 2018-09-13 21:22 | XR ---
EXAMINATION TYPE: XR pelvis AP view DATE OF EXAM: 09/13/2018 COMPARISON: 01/29/2017 HISTORY: Pain TECHNIQUE: Single view FINDINGS: There is bilateral hip prosthesis. Components appear in anatomic position. Pelvic ring is i ntact. There is old fracture greater trochanter of the left femur. Sacroiliac joints appear intact. IMPRESSION: No acute abnormality of the pelvis. No change.
--- NOTE | 2018-09-13 22:31 | CT ---
EXAM: CT Head Without Intravenous Contrast CLINICAL HISTORY: ITS.REASON CT Reason: Pain TECHNIQUE: Axial computed tomography images of the head/brain without intravenous contrast. CTDI is 45.2 mGy and DLP is 1329.4 mGy-cm. This CT exam was performed using one or more of the following dose reduction techniques: automated exposure control, adjustment of the mA and/or kV according to patient size, and/or use of iterative reconstruction technique. COMPARISON: No relevant prior studies available. FINDINGS: Brain: No visualized acute intracranial hemorrhage, cortical edema, or mass effect. Global cortical involutional changes with associated mild ventricular prominence. There is white matter hypodensity bilaterally which is nonspecific though likely related to chronic small vessel ischemia. Ventricles: Unremarkable. No ventriculomegaly. Bones/joints: Unremarkable. No acute fracture. Soft tissues: Unremarkable. Sinuses: Mucosal thickening in the right ethmoid sinuses. Mastoid air cells: Unremarkable as visualized. No mastoid effusion. IMPRESSION: No acute intracranial findings. EXAM: CT Cervical Spine Without Intravenous Contrast CLINICAL HISTORY: ITS.REASON CT Reason: Pain TECHNIQUE: Axial computed tomography images of the cervical spine without intravenous contrast. CTDI is 11.4 mGy and DLP is 1329.4 mGy-cm. This CT exam was performed using one or more of the following dose reduction techniques: automated exposure control, adjustment of the mA and/or kV according to patient size, and/or use of iterative reconstruction technique. COMPARISON: No relevant prior studies available. FINDINGS: Vertebrae: No visualized fracture or traumatic malalignment of the cervical spine. Likely chronic reversal of the normal cervical curvature with pronounced kyphosis at the C4-C6 levels. There is partial fusion of the posterior elements between C2 and C5. Diffuse disc space height loss and osteophytosis noted throughout the cervical spine as well as uncovertebral joint hypertrophy. Soft tissues: Unremarkable. Lung apices: Bilateral apical lung opacities favoring scarring. IMPRESSION: No acute traumatic findings. There are chronic findings as above.
[2018-09-13 23:49] LABS: Appearance,Urine Clear (Clear); Bacteria,Urine Rare /hpf; Bilirubin,Urine Negative (Negative); Blood,Urine Small (Negative); Color,Urine Yellow; Glucose,Urine (UA) Negative (Negative); Ketones,Urine Negative (Negative); Leukocyte Esterase,Urine Trace (Negative); Mucus,Urine Rare /hpf; Nitrite,Urine Negative (Negative); PH, Urine 6.5 (5.0-8.0); Protein,Urine Negative (Negative); RBC,Urine 3 /hpf (0-5); Specific Gravity,Urine 1.014 (1.001-1.035); Squamous Epithelial Cell,Urine 2 /hpf (0-4); Urobilinogen,Urine <2.0 mg/dL (<2.0); WBC,Urine 2 /hpf (0-5)
[2018-09-14 01:18] VITALS: BP 184/98; PULSE 60; RESP 18; TEMP 98.3
== END 2018-09-14 01:16 | disposition home or self-care (01) ==
LOC: EC 19:37
DX: F03.90 Unspecified dementia, unspecified severity, without behavioral disturbance, psychotic disturbance, mood disturbance, and anxiety (principal); R41.82 Altered mental status, unspecified; M25.551 Pain in right hip; I10 Essential (primary) hypertension; M19.90 Unspecified osteoarthritis, unspecified site; F41.9 Anxiety disorder, unspecified; F32.9 Major depressive disorder, single episode, unspecified; Z85.828 Personal history of other malignant neoplasm of skin; Z86.73 Personal history of transient ischemic attack (TIA), and cerebral infarction without residual deficits; Z96.643 Presence of artificial hip joint, bilateral; Z79.899 Other long term (current) drug therapy; Z88.5 Allergy status to narcotic agent
CPT/HCPCS: 36415; 70450; 71045; 72125; 72170; 80048; 81001; 83735; 84484; 85025; 87086; 93005; 99285

== ENCOUNTER → 2018-11-05 | Outpatient (CLI) | payer MEDICARE ==
[~2018-11-05] MED LIST: REGADENOSON 0.4 MG/5 ML SYRINGE IV ONE
--- NOTE | 2018-11-05 11:28 | NM ---
EXAMINATION TYPE: NM stress lexiscan cardiolite DATE OF EXAM: 11/05/2018 COMPARISON: NONE HISTORY: Chest pain TECHNIQUE: After the intravenous administration of 10.12 mCi Tc 99m Sestamibi - Cardiolite resting S PECT images acquired 60 minutes post injection. The patient received 0.4mg Lexiscan, 26.9 mCi Tc 99m Sestamibi - Stress images obtained [address] injection FINDINGS: Review of stress and rest SPECT images demonstrates no distinct perfusion abnormality. Gated analysi s shows normal wall motion with an estimated left ventricular ejection fraction of 54 %. IMPRESSION: No scintigraphic evidence for reversible ischemia.
--- NOTE | 2018-11-05 11:36 | EST ---
EXERCISE STRESS AGE: 83 SEX: F HT: 5'6" WT: 160 PROTOCOL: Lexiscan Cardiolite Stress Test HEART RATE REST: 45 BLOOD PRESSURE REST: 135/58 MAXIMUM HEART RATE ACHIEVED: 76 MAXIMUM BLOOD PRESSURE: 135/78 85% MPHR: 116 100% MPHR: 136 INDICATIONS: Chest pain/shortness of breath. CLINICAL INFORMATION: STRESS DATA: Heart rate 45, pressure is 135/58 mmHg. Baseline EKG showed sinus mechanism. A 0.4 mg of Lexiscan given over 15 seconds per protocol. Max heart rate was 76 beats per minute. Maximum pressure was 135/78 mmHg. Clinically, the patient did not have any symptoms of chest pain or discomfort and the EKG did not show any significant ST or T-wave abnormalities concerning for ischemia. CONCLUSION: 1. Nondiagnostic electrocardiogram stress testing in response to Lexiscan. 2. Please follow up on the Cardiolite portion on separate report from Radiology Department. MMODL / IJN: [id number] /
== END | disposition home or self-care (01) ==
LOC: RADNMMAIN 08:28
PROVIDERS: ATTEND Family Medicine
DX: R06.02 Shortness of breath (principal)
CPT/HCPCS: 93017; 78452; A9500; J2785

== ENCOUNTER → 2021-05-10 | Outpatient (CLI) | payer MEDICARE ==
[2021-05-10 18:14] LABS: Potassium 4.5 mmol/L (3.5-5.5)
== END | disposition home or self-care (01) ==
LOC: LABPAT 12:52
PROVIDERS: ATTEND Anesthesiology
DX: Z01.812 Encounter for preprocedural laboratory examination (principal); Z22.322 Carrier or suspected carrier of Methicillin resistant Staphylococcus aureus
CPT/HCPCS: 80051; 87070

== ENCOUNTER 2021-05-17 15:00 | Day surgery (SDC) | payer MEDICARE ==
[2021-05-10 10:45] VITALS: BMI 28.1
[~2021-05-17 15:00] MED LIST changes: +ACETAMINOPHEN TAB 500 MG TAB PO PRN; +DEXAMETHASONE SOD PHOSPHATE 4 MG/ML 1 ML VIAL IV ONE; +GABAPENTIN 300 MG CAP PO PRN; +HYDROmorphone 0.5 MG/0.5 ML SYRINGE IVP PRN; +MELOXICAM 7.5 MG TAB PO PRN; +ONDANSETRON 4 MG/2 ML VIAL IVP ONE; -REGADENOSON 0.4 MG/5 ML SYRINGE IV ONE; +TRANEXAMIC ACID IN NACL,ISO-OS 1,000 MG in SALINE 1 100ML.BAG IVPB PRN
[2021-05-17] MEDS ORDERED: LACTATED RINGERS 1,000 ML IV ONE ×4 (15:49→19:22)
[2021-05-17] MEDS ORDERED: MIDAZOLAM 2 MG/2 ML VIAL IVP ONE (16:01)
--- NOTE | 2021-05-17 16:28 | P.ANPRN ---
Procedure Note - Anesthesia - Nerve Block Performed Left Adductor Canal Infusion Time Out Performed: Yes (1600) Date of Procedure: 05/17/21 Procedure Start Time: 16:04 Procedure Stop Time: 16:20 Location of Patient: PreOp Indication: Acute Post-Operative Pain, Requested by Surgeon Sedation Type: Sedate with meaningful contact maintained Preparation: Sterile Prep, Sterile Dressing Position: Supine Catheter Depth at Skin (cm): 5 Catheter: Indwelling Needle Types: Pajunk Needle Gauge: 18 Ultrasound used to visualize needle placement: Yes Ultrasound used to observe medication spread: Yes Injectate: 0.5% Ropivacaine (see comment for volume) (10 ML of preservative-free normal saline mixed with 10 mL of 0.5% ropivacaine) Blood Aspirated: No Pain Paresthesia on Injection Noted: No Resistance on Injection: Normal Image Stored and Saved: Yes Events: Uneventful and Well Tolerated
--- NOTE | 2021-05-17 16:29 | P.ANPRN ---
Procedure Note - Anesthesia - Nerve Block Performed Left iPack Single Time Out Performed: Yes (1600) Date of Procedure: 05/17/21 Procedure Start Time: 16:04 Procedure Stop Time: 16:20 Indication: Acute Post-Operative Pain, Requested by Surgeon Sedation Type: Sedate with meaningful contact maintained Position: Supine Catheter: None Needle Types: Pajunk Needle Gauge: 20 Ultrasound used to visualize needle placement: Yes Ultrasound used to observe medication spread: Yes Injectate: 0.5% Ropivacaine (see comment for volume) (10 ML of preservative-free normal saline mixed with 10 mL of 0.5% ropivacaine) Blood Aspirated: No Pain Paresthesia on Injection Noted: No Resistance on Injection: Normal Image Stored and Saved: Yes Events: Uneventful and Well Tolerated
[2021-05-17] MEDS ORDERED: SODIUM CHLORIDE 0.9% (PF) 10 ML VIAL ONE (18:12)
[2021-05-17] MEDS ORDERED: PROPOFOL 10 MG/ML 20 ML VIAL IV ONE (18:12)
[2021-05-17] MEDS ORDERED: ROPIVACAINE 5 MG/ML 30 ML VIAL ONE (18:12)
[2021-05-17] MEDS ORDERED: TRANEXAMIC ACID IN NACL,ISO-OS 1,000 MG/100 ML BAG ONE (18:12)
[2021-05-17] MEDS ORDERED: ceFAZolin 1,000 MG in SODIUM CHLORIDE 0.9% 1,000 ML IRRIGATION ONE (18:43)
[2021-05-17] MEDS ORDERED: NA PHOS,M-B/NA PHOS,DI-BA 133 ML ENEMA RECTAL PRN (19:18)
[2021-05-17] MEDS ORDERED: bisacodyL 10 MG SUPP RECTAL PRN (19:18)
[2021-05-17] MEDS ORDERED: NALOXONE 0.4 MG/ML 1 ML VIAL IV PRN (19:18)
[2021-05-17] MEDS ORDERED: HYDROmorphone 0.5 MG/0.5 ML SYRINGE IVP PRN ×3 (19:18)
[2021-05-17] MEDS ORDERED: ONDANSETRON 4 MG/2 ML VIAL IVP PRN (19:18)
[2021-05-17] MEDS ORDERED: MAGNESIUM HYDROXIDE 2,400 MG/10 ML CUP PO PRN (19:18)
[2021-05-17] MEDS ORDERED: HYDROcodone/APAP 7.5-325MG 1 EACH TAB PO PRN (19:21)
--- NOTE | 2021-05-17 19:37 | P.OP ---
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 Procedure(s) Performed: Left total knee arthroplasty Implants: [employer] II CR Oxinium Bi-cruciate stabilized femoral component size 3, left [employer] nonporous tibial baseplate size 2, left [employer] II, XLPE constrained articular insert, size 9 mm, Size 1- 2, left [employer] Raisa II resurfacing patellar component, oval, 29 mm All components were cemented using Palacos R bone cement The articulation is Oxinium on polyethylene Anesthesia: spinal Surgeon: Vadim Tran Painter Drum #1: Nitza Hyman Estimated Blood Loss (ml): 25 Pathology: other (Bone cartilage) Condition: stable Disposition: PACU Indications for Procedure: After failure of conservative treatment we discussed the surgical and nonsurgical treatment options at length. Patient wishes to proceed with a total knee arthroplasty. Complications specific to this procedure were discussed at length, including but not limited to infection, bleeding, stiffness, and nerve injury. Covid-19 was also discussed at length with the patient, and they are aware of the current policies and procedures. The patient was given the option of delaying surgery, but they elect to proceed knowing these risks. Patient is aware of all these complications and informed consent was obtained Operative Findings: The operative findings are consistent with severe osteoarthritis of the left knee Description of Procedure: Patient was seen in the preoperative area consent was reviewed and operative site was marked with a skin marker. Patient was then brought to the operating room and given preoperative antibiotics intravenously. A spinal anesthetic was administered by the anesthesia department. A tourniquet was placed on the upper thigh and the lower extremity was prepped and draped in usual sterile fashion. A gram of transexamic acid was given. A universal timeout was then performed which confirmed the patient's name, surgical site, ALLERGIES, and consent. The lower extremity was then exsanguinated and tourniquet was inflated to 250 mmHg. A standard and anterior midline approach to the knee was performed. The skin and subcutaneous tissue was dissected down to the patellar tendon. A medial parapatellar arthrotomy was then performed. The knee was then extended, the patellar was everted, and the knee was again flexed. Anterior horns of both menisci were excised, and a minimal medial release was performed because of the valgus deformity of the knee.. On gross visual inspection, there was complete loss of articular cartilage in all 3 compartments of the knee. There was also significant cartilage damage in the lateral compartment. There were multiple periarticular osteophytes which were then removed with a Ronguer. The femoral canal was then opened with the appropriate drill, and the intramedullary femoral cutting guide was then placed and set for 4 of valgus. The distal femoral cutting block was then pinned in place, and the distal femur was then cut. The cutting block was then removed and the cut was checked for flatness. Next, the sizing guide was then placed and set for 3 external rotation based off of the epicondylar axis and [place]ites[place] line. After the femur was sized, the appropriate 4-in-1 cutting block was then pinned in place. The anterior condyles were cut without notching. The posterior and chamfer cuts were performed while protecting the collateral ligaments. The cutting block was then removed. Attention was then directed to the tibia. The remaining ACL was removed with a Ronguer, and the tibia was then gently subluxed forward with a large bent knee retractor. Any remaining menisci was excised. The posterior lateral corner was cauterized in order to cauterize the lateral geniculate artery. The extra medullary tibial cutting guide was then placed, set for the appropriate rotation, slope, and depth of resection. The proximal tibia cutting guide was then pinned in place. Proximal tibia was then cut and sized. The femoral trial was then placed. The box cutting guide was placed and then using the appropriate reamer, the bone was reamed for the box. Then the box osteotome was used to finish the reaming. Next trials were then placed with the appropriate-sized insert. The knee was able to fully extend and flex to 130 and was stable throughout all range of motion. The knee was then extended, patella everted. Patella was then measured, and then using an osteotomy guide, the patella was cut at the appropriate level. The patella was then measured and drilled and the patella trial was then placed. The knee was then taken through range of motion with the patella trial and the patella tracked normally. The knee was then extended patella trial was then removed and the patella was everted. Knee was then flexed and lug holes were drilled through the femoral trial and the femoral trial was then removed. The tibial was then exposed, and the tibial broach guide was then pinned in place after it was set for the appropriate rotation to allow for the most coverage without overhang. The tibia was then broached. The cut surfaces of bone were then irrigated with pulsatile lavage. The posterior structures were injected with the ropivacaine solution. The components were then opened, the cement was mixed, and the components were then cemented in place. The cement was allowed to harden with the knee in full extension. While the cement was hardening, the remaining soft tissues were injected with the ropivacaine solution. After the cemented hardened. The tourniquet was released, and hemostasis was obtained. A second gram of transexamic acid was given. The knee was again irrigated. The knee was again taken through range of motion and found to be stable throughout all range of motion of 0-130, and the patella tracked normally. The fascia was then closed with #2 strata fix suture. The subcutaneous tissue was closed with 3-0 Vicryl and 3-0 strata fix. Exofin glue was used for the skin, and the patient was placed in a sterile dressing. Patient was then transferred to recovery room in stable condition. The materials assistant NOHEMI Beach was required due the complexity surgery and the need for a skilled certified surgical technologist. She assisted in positioning, draping, retraction, and closure of the woundclosure of the wound.
[2021-05-17] MEDS ORDERED: ROPIVACAINE 0.2%-NS ON-Q PUMP 1,090 MG, EMPTY PAIN BALL 1 EACH MISCELLANE PRN (20:08)
--- NOTE | 2021-05-17 20:31 | XR ---
EXAMINATION TYPE: XR knee limited LT DATE OF EXAM: 05/17/2021 COMPARISON: NONE HISTORY: Postop knee surgery TECHNIQUE: 2 views FINDINGS: There is left knee prosthesis. Components appear in anatomic position. IMPRESSION: No complicating process seen.
[2021-05-17] MEDS: LACTATED RINGERS 1,000 ML IV SCH ×2 (22:26→23:40)
[2021-05-17] MEDS ORDERED: traMADol 50 MG TAB PO PRN ×2 (22:48)
[2021-05-17] MEDS: SENNOSIDES-DOCUSATE SODIUM 1 EACH TAB PO SCH (23:06)
[2021-05-17] MEDS: ESCITALOPRAM 20 MG TAB PO SCH (23:06)
[2021-05-17] MEDS: ASPIRIN 325 MG TAB PO SCH (23:06)
[2021-05-17] MEDS: LORazepam 0.5 MG TAB PO SCH (23:06)
[2021-05-17] MEDS: lamoTRIgine 100 MG TAB PO SCH (23:07)
[2021-05-17] MEDS: SODIUM CHLORIDE 0.9% 1,000 ML IV SCH (23:40)
[2021-05-18] MEDS: LEVOTHYROXINE 50 MCG TAB PO SCH (05:14)
[2021-05-18] MEDS: SODIUM CHLORIDE 0.9% 1,000 ML IV SCH (06:22)
--- NOTE | 2021-05-18 07:30 | P.PN ---
Progress Note - Text Progress Note Date: 05/18/21 patient was seen and evaluated at bedside. Status post postoperative day 1 for left side total knee arthroplasty patient had adductor canal catheter for postop pain control. Patient rated pain at rest 4-5 out of 10 in severity. With activities pain levels 6-7 . Patient describes pain is aching, throbbing type on the sides of the knee and back of the knee. Patient started walking with support. With activity patient pain levels are 6-7 out of 10 in severity. With the help of oral pain medications pain levels are tolerable. Patient denied any weakness/ numbness in lower extremities. patient denied any fever, pain over the catheter site. Physical exam: Patient vital signs stable Patient is alert awake oriented 3 responding to all questions appropriately Examination of the catheter site showed dressing intact, no leaking fluid around the catheter, no redness, no tenderness over the catheter insertion area. plan: status post postoperative day 1 for right total knee arthroplasty with adductor canal catheter for pain control. Patient was discussed to continue the medication at the rate of 8 mL per hour until the pump is completely empty and instructed the patient how to discontinue the catheter.
[2021-05-18] MEDS ORDERED: LORazepam 0.5 MG TAB PO STA (07:50)
[2021-05-18 09:38] LABS: Basophils # (A) 0.01 X 10*3/uL (0.00-0.10); Basophils % (A) 0.1 %; Eosinophils # (A) 0 X 10*3/uL (0.04-0.35); Eosinophils % (A) 0 %; HCT 35.3 % (37.2-46.3); HGB 11.9 g/dL (12.0-15.0); Immature Grans, Automated 1.2 %; Lymphocytes # (A) 1.28 X 10*3/uL (0.90-5.00); Lymphocytes % (A) 15.6 %; MCH 30.7 pg (27.0-32.0); MCHC 33.7 g/dL (32.0-37.0); MCV 91.2 fL (80.0-97.0); Mean Platelet Volume 9.6 fL (9.5-12.2); Monocytes # (A) 0.55 X 10*3/uL (0.20-1.00); Monocytes % (A) 6.7 %; NRBC Per 100 WBC 0 /100 WBCS (0.0-0.0); Neutrophils # (A) 6.25 X 10*3/uL (1.80-7.70); Neutrophils % (A) 76.4 %; Platelet Count 201 X 10*3/uL (140-440); RBC 3.87 X 10*6/uL (4.10-5.20); RDW 13.2 % (11.5-14.5); WBC 8.19 X 10*3/uL (4.50-10.00)
--- NOTE | 2021-05-18 09:54 | P.PN ---
Subjective Progress Note Date: 05/18/21 This patient is an 85-year-old female who is status-post left total knee arthroplasty on 05/17/[address] Tran. Today is post-operative day #1. Patient is seen and examined bedside. The patient states that she is experiencing mild pain in the left knee. She has been ambulating with a walker to the restroom. She is tolerating her diet well. She denies chest pain, shortness of breath, nausea, vomiting. Vital signs stable. Objective - Vital Signs Vital signs: Vital Signs Temp 98.0 F 05/18/21 07:29 Pulse 68 05/18/21 07:55 Resp 16 05/18/21 07:55 BP 147/71 05/18/21 07:29 Pulse Ox 89 L 05/18/21 07:29 Intake & Output 05/17/21 05/18/21 05/18/21 18:59 06:59 18:59 Intake Total 1051 50 Output Total 625 Balance 1051 -575 Weight 75 kg 75 kg Intake: IV 1051 50 Output: Urine 600 Estimated Blood Loss 25 - Exam On examination, patient is sitting up in bed in no apparent distress. She is alert and oriented 3. On inspection of the left knee, there is a clean, dry, intact Optifoam dressing intact. No bleeding or drainage through the dressing. There is mild swelling of the left knee. The calf is soft and nontender to palpation. Motor and sensory function is intact of the left lower extremity. Left lower extremity is warm and well perfused. - Labs CBC & Chem 7: 05/18/21 05:58 Labs: Abnormal Lab Results - Last 24 Hours (Table) 05/18/21 Range/Units 05:58 RBC 3.87 L (4.10-5.20) X 10*6/uL Hgb 11.9 L (12.0-15.0) g/dL Hct 35.3 L (37.2-46.3) % Immature Gran # 0.10 H (0.00-0.04) X 10*3/uL Eosinophils # 0 L (0.04-0.35) X 10*3/uL Assessment and Plan Assessment: Status-post left total knee arthroplasty on 05/17/21. Post-operative day #1. Plan: - Weight bear as tolerated on the operative leg with a walker. - Physical therapy for gait and balance training. - Keep operative dressing intact. - Pain management as needed. - Aspirin 81 mg BID for DVT prophylaxis. - Internal medicine for jonh-operative medical management. - Anticipate discharge home with home health care tomorrow. Case management has been consulted for discharge planning.
[2021-05-18] MEDS: FAMOTIDINE 20 MG TAB PO SCH (11:20)
[2021-05-18] MEDS: METOPROLOL SUCCINATE (ER) 25 MG TAB.ER.24H PO SCH (11:21)
[2021-05-18] MEDS: ASPIRIN 325 MG TAB PO SCH ×2 (11:21→22:11)
[2021-05-18] MEDS: amLODIPine 10 MG TAB PO SCH (11:21)
[2021-05-18] MEDS: FUROSEMIDE 40 MG TAB PO SCH ×2 (11:21→11:22)
[2021-05-18] MEDS: HYDROcodone/APAP 7.5-325MG 1 EACH TAB PO PRN ×2 (11:27→21:12)
[2021-05-18] MEDS: LACTATED RINGERS 1,000 ML IV SCH (21:28)
[2021-05-18] MEDS: ESCITALOPRAM 20 MG TAB PO SCH (22:11)
[2021-05-18] MEDS: lamoTRIgine 100 MG TAB PO SCH (22:11)
[2021-05-18] MEDS: LORazepam 0.5 MG TAB PO SCH (22:11)
[2021-05-18] MEDS: SENNOSIDES-DOCUSATE SODIUM 1 EACH TAB PO SCH (22:11)
[2021-05-19] MEDS: HYDROcodone/APAP 7.5-325MG 1 EACH TAB PO PRN ×2 (04:50→13:15)
[2021-05-19] MEDS: LEVOTHYROXINE 50 MCG TAB PO SCH (04:51)
[2021-05-19] MEDS: SODIUM CHLORIDE 0.9% 1,000 ML IV SCH ×2 (04:54→14:15)
--- NOTE | 2021-05-19 07:23 | P.PN ---
Progress Note - Text Progress Note Date: 05/19/21 Postoperative day # 2 status post total knee arthroplasty, on adductor canal perineural catheter placed for postoperative analgesia. Ropivacaine 0.2% 8 mL per hour through ON-Q pump continuous infusion. Pain control not so good. On visual analog scale 5/10 Patient is taking PRN oral pain medications. Catheter site: Looks Ok. There is no erythema or tenderness. Continue with the current pain management with the combination of pain pump and pain medications.
[2021-05-19 07:42] VITALS: RESP 16
[2021-05-19] MEDS: FAMOTIDINE 20 MG TAB PO SCH (07:45)
[2021-05-19] MEDS: amLODIPine 10 MG TAB PO SCH (07:46)
[2021-05-19] MEDS: ASPIRIN 325 MG TAB PO SCH (07:46)
[2021-05-19] MEDS: METOPROLOL SUCCINATE (ER) 25 MG TAB.ER.24H PO SCH (07:46)
--- NOTE | 2021-05-19 07:59 | P.CONS ---
History of Present Illness - Reason for Consult Consult date: 05/18/21 Medical management hypertension Requesting physician: Vadim Tran - Chief Complaint Osteoarthritis left knee, surgical repair - History of Present Illness This is an 85-year-old female with past medical history of hypertension, hyperlipidemia, osteoarthritis, PE, hypothyroidism, elevated-May 2020, shingles, skin cancer, vertigo, bipolar, anxiety and multiple other medical issues status post left total knee arthroplasty. Tolerated procedure well. Passing flatus, no bowel movement. Denies nausea vomiting. Ambulating with walker and PT, reporting pain with exertion and some mild anxiety. Denies chest pain, palpitations or shortness of breath. Afebrile, normal WBC, hemoglobin 9.9, platelets 201. Vital signs stable. DVT prophylaxis with aspirin as per orthopedic surgery. Review of Systems Constitutional: Denied any fatigue denied any fever. Cardio vascular: denied any chest pain, palpitations Gastrointestinal denied any nausea vomiting Pulmonary: Denied any shortness of breath cough Neurologic denied any new focal deficits ROS Statement: Those systems with pertinent positive or pertinent negative responses have been documented in the HPI. ROS Other: All systems not noted in ROS Statement are negative. Past Medical History Past Medical History: Cancer, CVA/TIA, Hyperlipidemia, Hypertension, Osteoarthritis (OA), Pneumonia, Pulmonary Embolus (PE), Syncope, Thyroid Disorder Additional Past Medical History / Comment(s): HAD COVID IN MAY 2020. 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 History of Any Multi-Drug Resistant Organisms: None Reported Past Surgical History: Appendectomy, Bladder Surgery, Cholecystectomy, Hysterectomy, Joint Replacement, Orthopedic Surgery Additional Past Surgical History / Comment(s): bilateral hip replacements. cataract removal bilaterally with lens implants, bladder suspension surgery with mesh. Pelvic fx surgically repaired. Additional Past Anesthesia/Blood Transfusion Reaction / Comm: Pt has not recieved a blood transfusion. Past Psychological History: Anxiety, Bipolar Additional Psychological History / Comment(s): Pt lives at home alone. 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 Pt uses a walker or cane. Smoking Status: Never smoker Past Alcohol Use History: None Reported Past Drug Use History: None Reported - Past Family History Father Family Medical History: Myocardial Infarction ([place]) Mother Family Medical History: CVA/TIA, Hypertension Additional Family Medical History / Comment(s): Mother of a CVA Medications and Allergies Home Medications Medication Instructions Recorded Confirmed Type Escitalopram [Lexapro] 20 mg PO HS 01/05/17 05/10/21 History Famotidine [Pepcid] 40 mg PO DAILY 09/13/18 05/10/21 History Metoprolol Succinate (ER) [Toprol 25 mg PO DAILY 09/13/18 05/10/21 History XL] Acetaminophen [Tylenol Extra 1,000 mg PO Q6H 05/10/21 05/10/21 History Strength] Cholecalciferol [Vitamin D3 (25 50 mcg PO DAILY 05/10/21 05/10/21 History Mcg = 1000 Iu)] Furosemide [Lasix] 40 mg PO DAILY 05/10/21 05/10/21 History Levothyroxine Sodium [Synthroid] 50 mcg PO DAILY 05/10/21 05/10/21 History Mirabegron [Myrbetriq] 25 mg PO DAILY 05/10/21 05/10/21 History Multivitamins, Thera [Multivitamin 1 tab PO DAILY 05/10/21 05/10/21 History (formulary)] Oxybutynin Chloride [Ditropan] 5 mg PO DAILY 05/10/21 05/10/21 History Potassium Chloride [K-Tab ER] 20 meq PO DAILY 05/10/21 05/10/21 History amLODIPine BESYLATE 10 mg PO DAILY 05/10/21 05/10/21 History lamoTRIgine 100 mg PO HS 05/10/21 05/10/21 History Aspirin [[place] Aspirin EC] 81 mg PO DAILY 05/11/21 05/11/21 History Aspirin 325 mg PO BID #60 tab 05/17/21 Rx HYDROcodone/APAP 7.5-325MG [[place] 1 - 2 tab PO Q6H PRN #32 tab 05/17/21 Rx 7.5-325] Ondansetron Odt [Zofran Odt] 1 tab PO Q8HR PRN #10 tab 05/17/21 Rx Sennosides [Senokot] 2 tab PO DAILY PRN #60 tablet 05/17/21 Rx LORazepam [Ativan] 0.5 mg PO HS #3 tab 05/18/21 Rx Allergies Allergy/AdvReac Type Severity Reaction Status Date / Time codeine AdvReac Nausea & Verified 05/10/21 10:06 Vomiting Physical Exam Vitals: Vital Signs Temp Pulse Pulse Resp BP Pulse Ox 05/19/21 01:42 99.0 F 62 15 154/64 94 L 05/18/21 20:03 97.7 F 60 18 146/64 95 05/18/21 19:05 14 05/18/21 14:00 98.2 F 62 14 131/78 89 L 05/18/21 07:55 68 16 Intake and Output 05/18/21 05/19/21 05/19/21 22:59 06:59 14:59 Intake Total 870 Balance 870 Intake: Intake, IV Titration 870 Amount Sodium Chloride 0.9% 1, 770 000 ml @ 70 mls/hr IV . [id number] [facility] Rx#:[id number] ceFAZolin 2 gm In Sodium 100 Chloride 0.9% 50 ml @ 100 mls/hr IVPB Q8HR [facility] Rx# :[id number] Other: Voiding Method Toilet Diaper # Voids 2 PHYSICAL EXAM: VITAL SIGNS: As above GENERAL: Sitting up in chair, no acute distress, mild anxiety HEENT: Conjunctivae normal. eyes normal. Oral mucosa moist NECK: No JVD. No thyroid enlargement. No LNs CARDIOVASCULAR: S1, S2 regular.. No murmur RESPIRATION: Breath sounds diminished in the bases. No rhonchi or crackles. No bronchial breathing. ABDOMEN: Soft, nontender . No guarding. no masses palpable. No ascites, No hepatosplenomegaly.Bowel sounds heard. LEGS: Left knee dressing clean dry and intact, mild edema, no calf tenderness, soft, positive DP pulse PSYCHIATRY: Alert and oriented X3, mood and affect normal. NERVOUS SYSTEM: Cranial N 2-12 grossly normal. Moves all 4 limbs. No focal deficits. Strength and sensation grossly intact.. Skin: Warm and dry, no rash Results CBC & Chem 7: 05/18/21 05:58 Labs: Abnormal Lab Results - Last 24 Hours (Table) 05/18/21 Range/Units 05:58 RBC 3.87 L (4.10-5.20) X 10*6/uL Hgb 11.9 L (12.0-15.0) g/dL Hct 35.3 L (37.2-46.3) % Immature Gran # 0.10 H (0.00-0.04) X 10*3/uL Eosinophils # 0 L (0.04-0.35) X 10*3/uL Assessment and Plan Assessment: Severe osteoarthritis left knee status post left total knee arthroplasty Atelectasis Hypertension Hyperlipidemia Osteoarthritis History of PE Bipolar Anxiety Plan: Continue on current medication regime ,monitoring and symptomatic treatment. Pain management /anticoagulation as per orthopedic surgery. Aggressive pulmonary toileting with incentive spirometer ordered. Ambulation/PT. Discharge planning in progress for subacute rehab tomorrow as per primary. Follow up with PCP 1 week after discharge from [facility]. Thank you Dr. Tran for the consult. The impression and plan of care has been dictated as directed. : I performed a history and examination of this patient, discussed the same with the dictator. I agree with the dictator's note ,documented as a scribe. Any additional findings or plans will be noted.
--- NOTE | 2021-05-19 09:27 | P.DS ---
Providers Expected date of discharge: 05/19/21 Attending physician: Vadim Tran Consults: 05/17/21 19:18 Consult Physician Routine Consulting Provider: Diony Carney Consult Reason/Comments: medical management Do you want consulting provider notified?: Yes Primary care physician: Diony Carney MD - Discharge Diagnosis(es) (1) Osteoarthritis of left knee Current Visit: Yes Status: Acute (2) Status post total left knee replacement Current Visit: Yes Status: Acute Hospital Course: This is a 85-year-old female with known history of degenerative arthritis of the left knee. The patient presented for evaluation as an outpatient. After discus liyah and consideration patient elects to proceed with total knee arthroplasty. The patient is seen preoperatively by Dr. Tran and medically cleared for surgery by their primary care physician. Patient is admitted to [facility] on 05/18/2021 for total knee arthroplasty. The procedure is performed without complication or sequelae. The patient is doing well postoperatively. Labs and vital signs are stable on day of discharge. On day of discharge patient's knee incision is healing well. There is minimal erythema. There is no drainage noted at this time. There is minimal soft t issue swelling to the knee. Patient has full foot and ankle motion without difficulty or pain. Calf is soft and nontender to palpation. Neurovascular status to the left lower extremity is intact. Patient is discharged home in good condition. Please see med rec for accurate list of home medications. Plan - Discharge Summary Discharge Rx Participant: Yes New Discharge Prescriptions: New Aspirin 325 mg PO BID #60 tab Ondansetron Odt [Zofran Odt] 1 tab PO Q8HR PRN #10 tab PRN Reason: Nausea HYDROcodone/APAP 7.5-325MG [[place] 7.5-325] 1 - 2 tab PO Q6H PRN #32 tab PRN Reason: Pain Sennosides [Senokot] 2 tab PO DAILY PRN #60 tablet PRN Reason: Constipation Continue Escitalopram [Lexapro] 20 mg PO HS Metoprolol Succinate (ER) [Toprol XL] 25 mg PO DAILY Famotidine [Pepcid] 40 mg PO DAILY Levothyroxine Sodium [Synthroid] 50 mcg PO DAILY Furosemide [Lasix] 40 mg PO DAILY lamoTRIgine 100 mg PO HS Cholecalciferol [Vitamin D3 (25 Mcg = 1000 Iu)] 50 mcg PO DAILY Potassium Chloride [K-Tab ER] 20 meq PO DAILY amLODIPine BESYLATE 10 mg PO DAILY Oxybutynin Chloride [Ditropan] 5 mg PO DAILY Mirabegron [Myrbetriq] 25 mg PO DAILY Acetaminophen [Tylenol Extra Strength] 1,000 mg PO Q6H Multivitamins, Thera [Multivitamin (formulary)] 1 tab PO DAILY Aspirin [[place] Aspirin EC] 81 mg PO DAILY LORazepam [Ativan] 0.5 mg PO HS #3 tab Discharge Medication List Escitalopram [Lexapro] 20 mg PO HS 01/05/17 [History] Famotidine [Pepcid] 40 mg PO DAILY 09/13/18 [History] Metoprolol Succinate (ER) [Toprol XL] 25 mg PO DAILY 09/13/18 [History] Acetaminophen [Tylenol Extra Strength] 1,000 mg PO Q6H 05/10/21 [History] Cholecalciferol [Vitamin D3 (25 Mcg = 1000 Iu)] 50 mcg PO DAILY 05/10/21 [History] Furosemide [Lasix] 40 mg PO DAILY 05/10/21 [History] Levothyroxine Sodium [Synthroid] 50 mcg PO DAILY 05/10/21 [History] Mirabegron [Myrbetriq] 25 mg PO DAILY 05/10/21 [History] Multivitamins, Thera [Multivitamin (formulary)] 1 tab PO DAILY 05/10/21 [History] Oxybutynin Chloride [Ditropan] 5 mg PO DAILY 05/10/21 [History] Potassium Chloride [K-Tab ER] 20 meq PO DAILY 05/10/21 [History] amLODIPine BESYLATE 10 mg PO DAILY 05/10/21 [History] lamoTRIgine 100 mg PO HS 05/10/21 [History] Aspirin [[place] Aspirin EC] 81 mg PO DAILY 05/11/21 [History] Aspirin 325 mg PO BID #60 tab 05/17/21 [Rx] Ondansetron Odt [Zofran Odt] 1 tab PO Q8HR PRN #10 tab 05/17/21 [Rx] Sennosides [Senokot] 2 tab PO DAILY PRN #60 tablet 05/17/21 [Rx] LORazepam [Ativan] 0.5 mg PO HS #3 tab 05/18/21 [Rx] HYDROcodone/APAP 7.5-325MG [[place] 7.5-325] 1 - 2 tab PO Q6H PRN #32 tab 05/19/21 [Rx] Follow up Appointment(s)/Referral(s): Diony Carney MD [Primary Care Provider] - 1 Week (After DC from subacute rehab) Vadim Tran DO [Doctor of Osteopathic Medicine] - 05/30/21 9:00 am (Appointment with Nitza Hyman) Activity/Diet/Wound Care/Special Instructions: [place] Weightbearing as tolerated with a walker. CPM 5-6h daily as tolerated. Leave dressing intact. Dressing may be removed by home care nurse or by patient in 7 days. Then change dressing twice daily until follow up. May shower with initial dressing intact and after removal. If dressing become saturated, please remove. Recommend use of compression stockings daily until follow up to help prevent swelling and blood clots. May remove at night before sleeping. Please take aspirin 325mg twice daily for 30 days to prevent blood clots. Please follow up with [facility] and call with any questions or concerns, . cbc,bmp in 3 days Discharge Disposition: TRANSFER TO SNF/ECF
--- NOTE | 2021-05-19 12:20 | P.PN ---
Subjective Progress Note Date: 05/19/21 This is an 85-year-old female with past medical history of hypertension, hyperlipidemia, osteoarthritis, PE, hypothyroidism, elevated-May 2020, shingles, skin cancer, vertigo, bipolar, anxiety and multiple other medical issues status post left total knee arthroplasty. Tolerated procedure well. Passing flatus, no bowel movement. Denies nausea vomiting. Ambulating with walker and PT, reporting pain with exertion and some mild anxiety. Denies chest pain, palpitations or shortness of breath. Afebrile, normal WBC, hemoglobin 9.9, platelets 201. Vital signs stable. DVT prophylaxis with aspirin as per orthopedic surgery. 05/19/2021 sitting up in chair, complains of pain with movement, otherwise controlled at rest. Denies chest pain, palpitations or shortness of breath. Ambulating with PT/walker, tolerating exertion well. Denies lightheadedness, dizziness or focal deficits. T-max 99. Objective - Vital Signs Vital signs: Vital Signs Temp 98.3 F 05/19/21 07:41 Pulse 65 05/19/21 07:46 Resp 16 05/19/21 07:46 BP 145/72 05/19/21 07:41 Pulse Ox 94 L 05/19/21 07:41 Intake & Output 05/18/21 05/19/21 05/19/21 18:59 06:59 18:59 Intake Total 870 Balance 870 Intake: Intake, IV Titration 870 Amount Sodium Chloride 0.9% 1, 770 000 ml @ 70 mls/hr IV . [id number] [facility] Rx#:[id number] ceFAZolin 2 gm In Sodium 100 Chloride 0.9% 50 ml @ 100 mls/hr IVPB Q8HR [facility] Rx# :[id number] Other: Voiding Method Toilet Toilet Diaper Diaper # Voids 2 - Exam PHYSICAL EXAM: VITAL SIGNS: As above GENERAL: Sitting up in chair, no acute distress, mild anxiety HEENT: Conjunctivae normal. eyes normal. Oral mucosa moist NECK: No JVD. No thyroid enlargement. No LNs CARDIOVASCULAR: S1, S2 regular.No murmur RESPIRATION: Breath sounds diminished in the bases. No rhonchi or crackles. No bronchial breathing. ABDOMEN: Soft, nontender . No guarding. no masses palpable. No ascites, No he patosplenomegaly.Bowel sounds heard. LEGS: Left knee elevated, in chair with ice pack over dressing -clean dry and intact, mild edema, no calf tenderness, soft, positive DP pulse PSYCHIATRY: Alert and oriented X3, mood and affect normal. NERVOUS SYSTEM: Cranial N 2-12 grossly normal. Moves all 4 limbs. No focal deficits. Strength and sensation grossly intact. Skin: Warm and dry, no rash - Labs CBC & Chem 7: 05/18/21 05:58 Labs: Abnormal Lab Results - Last 24 Hours (Table) 05/18/21 Range/Units 05:58 RBC 3.87 L (4.10-5.20) X 10*6/uL Hgb 11.9 L (12.0-15.0) g/dL Hct 35.3 L (37.2-46.3) % Immature Gran # 0.10 H (0.00-0.04) X 10*3/uL Eosinophils # 0 L (0.04-0.35) X 10*3/uL Assessment and Plan Assessment: Severe osteoarthritis left knee status post left total knee arthroplasty Atelectasis Hypertension Hyperlipidemia Osteoarthritis History of PE Bipolar Anxiety Plan: Continue on current medication regime ,monitoring and symptomatic treatm ent. Discharge planning in progress . Maintain aggressive pulmonary toileting with incentive spirometer reinforced .Pain management /anticoagulation as per orthopedic surgery. Discharge planning in progress for subacute rehab. as per primary. Follow up with PCP 1 week after discharge from [facility]. The impression and plan of care has been dictated as directed. : I performed a history and examination of this patient, discussed the same with the dictator. I agree with the dictator's note ,documented as a scribe. Any additional findings or plans will be noted.
[2021-05-19 13:52] VITALS: BP 127/65; PULSE 64; TEMP 98.2
== END 2021-05-19 16:04 ==
LOC: OR 15:00 → 4SSUR 20:00 → OR 05-19 16:04
PROVIDERS: ATTEND Orthopaedic Surgery
DX: M17.12 Unilateral primary osteoarthritis, left knee (principal); M21.062 Valgus deformity, not elsewhere classified, left knee; Z20.822 Contact with and (suspected) exposure to COVID-19
CPT/HCPCS: 27447; 97116; 97161; 97166; 64999; 64448; 76942; 85025; 88300; 87635; 73560; C1713; C1776; J2250; J1100; J0690 ×3; J2405; J2795 ×2; J2704

== ENCOUNTER → 2021-07-01 | Outpatient (CLI) | payer MEDICARE ==
--- NOTE | 2021-07-01 09:58 | FL ---
EXAMINATION TYPE: FL barium swallow DATE OF EXAM: 07/01/2021 CLINICAL HISTORY: Dysphagia. Food getting stuck for one month upper thorax or lower neck TECHNIQUE: A double contrast esophagram is attempted utilizing air and barium. A total of 76 second s of fluoroscopic time was utilized during procedure and 39 images obtained COMPARISON: None FINDINGS: Slightly suboptimal due to patient's age and underlying chronic medical conditions includin g recent left knee replacement. The esophagus shows mild to moderate dysmotility on attempted upright imaging with more moderate to severe dysmotility during semiupright imaging as mid to distal esophag us had a corkscrew type appearance. No proximal diverticulum. No obvious suspicious mass or strictur e with particular attention to the proximal esophagus at the area of patient concern. No evidence of a fixed hiatal hernia. No significant gastroesophageal reflux was seen during real time performance o f this study. IMPRESSION: Slightly suboptimal study. Moderate esophageal dysmotility. No suspicious mass or strict ure noted.
== END | disposition home or self-care (01) ==
LOC: RADUSWWP 08:46
PROVIDERS: ATTEND Family Medicine
DX: K22.4 Dyskinesia of esophagus (principal)
CPT/HCPCS: 74220